=== PATIENT | male | born 1965 | race Caucasian/White ===

== ENCOUNTER 2023-03-09 09:24 | Outpatient (CLI) | payer OTHER, SELFPAY ==
--- NOTE | ~2023-03-09 | XR_ITS ---
EXAMINATION: XR barium swallow modified DATE: 03/09/2023 10:01 INDICATION: Dysphagia. TECHNIQUE: The patient was given barium-containing material of multiple consistencies to swallow by suzi foster speech pathologist while I performed fluoroscopy. Dose-area product was 0.806 Gy-cm2. FINDINGS: Oral Stage: Within functional limits Pharyngeal Phase: Within functional limits Cervical/Esophageal Stage: Within functional limits IMPRESSION: Modified esophagram findings as above. Please refer [facility] the [facility]. Reviewed, dictated and finalized at [facility]. Reviewed, dictated and finalized at [facility]. IMPRESSION: Modified esophagram findings as above. Please refer to the speech t herapy report for specific recommendations.
--- NOTE | 2023-03-09 11:35 | REHSTMBS ---
Assessment and note entered by Linda Fish, [employer] Modified Barium Swallow Evaluation Feeding Type Recommended Oral Food Consistency Regular, Level 7 Liquid Consistency Thin (0) ST Clinical Summary MODIFIED BARIUM SWALLOW STUDY This patient was seen for a Modified Barium Swallow at the request of his physician. Patient reported that he has noticed that when attempting to swallow his own saliva, it is like it becomes caught in his throat and he has to swallow hard, or gulp to get it down. He also noticed that occasionally liquids will do the same and he has had to cough and expectorate the liquid to catch his breath. Patient denied significant issues with swallowing foods however he did report that when chocolate melts and mixes with his saliva, he occasionally becomes choked on that consistency. Patient was presented with graduated amounts of thin liquid, then pudding mixed with semi-solid contrast medium, then crackers and fruit pieces both coated with the pudding mixture. He exhibited quick swallows with no signs of aspiration. Results indicate patient may remain on Regular Diet and Liquids. He was instructed to masticate/ manipulate material with chin slightly tucked to keep all food/liquid/saliva in the mouth prior to swallowing. He is referred back to his physician for further assessment of his complaints.
== END 2023-03-09 09:25 | disposition home or self-care (01) ==
PROVIDERS: PCP Internal Medicine; Visit Provider Internal Medicine
DX: R49.0 Dysphonia (principal)
CPT/HCPCS: 92611

== ENCOUNTER 2024-11-23 15:23 | Emergency (ER) | payer OTHER, SELFPAY ==
[2024-11-23 15:31] VITALS: BP 167/100; PULSE 79; RESP 18; TEMP 37.4; O2SAT 95
--- NOTE | 2024-11-23 16:22 | ED_ITS ---
HPI - URI/Sore Throat General Chief Complaint: Upper Respiratory Infection Stated Complaint: Cough/Headache Time Seen by Provider: 11/23/24 15:24 Source: patient Mode of arrival: ambulatory Limitations: no limitations History of Present Illness HPI Narrative: Patient is a 59-year-old male who presents with 2 weeks of persistent cough. Patient states Tuesday cough worsened and he is now having headaches and cou ghing fits at night. Denies any fever, chills, nausea, vomiting, diarrhea. Has taken byws-yes-sfflwop medication with no relief. Related Data Home Medications ?Medication ?Instructions ?Recorded ?Confirmed ?Last Taken ?Type bupropion HCl 300 mg 24 hr tablet, 300 mg PO QAM 06/21/23 09/19/24 Unknown History extended release buspirone 10 mg tablet 10 mg PO TID 06/21/23 09/19/24 Unknown History escitalopram oxalate 20 mg tablet 20 mg PO DAILY 06/21/23 09/19/24 Unknown History venlafaxine 150 mg tablet,extended 150 mg PO DAILY 06/21/23 09/19/24 Unknown History release 24 hr Allergies Allergy/AdvReac Type Severity Reaction Status Date / Time latex Allergy Mild Rash Verified 11/23/24 15:24 Review of Systems Review of Systems: All systems reviewed & are unremarkable except as noted in HPI and below Constitutional: Constitutional: Denies chills, Denies fatigue, Denies fever(s), Reports headache(s), Denies malaise and Denies weakness Eyes: Eyes: Denies blurry vision, Denies itchy eyes and Denies loss of vision ENT: Denies otalgia, Reports headache(s), Denies nasal congestion, Denies sinus pain and Denies sore throat Cardiovascular: Cardiovascular: Denies chest pain, Denies irregular heart rhythm and Denies dyspnea Respiratory: Respiratory: Reports cough and Denies dyspnea Gastrointestinal: Gastrointestinal: Denies abdominal pain, Denies diarrhea, Denies nausea and Denies vomiting Musculoskeletal: Musculoskeletal: Denies back pain, Denies myalgias and Denies arthralgias Integumentary/Breasts: Skin/Breast: Denies pruritus and Denies rash Neurologic: Reports headache(s), Denies loss of vision and Denies weakness Psychiatric: Psychiatric: Reports no additional psychiatric complaints Endocrine: Endocrine: Denies fatigue Allergic/Immunologic: Allergic/Immunologic: Denies itchy eyes PMFSH Past Medical History Medical History MDD (major depressive disorder), recurrent episode Elevated PSA RAMILA (generalized anxiety disorder) Nephrolithiasis Migraines Family History Family History Father Hypertension Heart disease Other Diabetes mellitus Social History Social History Social History: Smoking status: Never smoker Second hand tobacco smoke exposure: No Alcohol intake: never Substance use: never Substance use type: does not use Do You Feel Safe in your Home?: Yes Lack of Transportation: No Lack of Food: Never True Current Housing: I Have Housing Concerned About Future Housing: No Difficulty Paying Gas/Electric Bills: No Difficulty Paying for Meds: No Currently Unemployed: No Education: Associate Degree Difficulty w/ Childcare or Family Care: No Living arrangements: with family Occupation/Education: occupation 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 There is no relevant family history pertinent to the presenting complaint. Exam Const: General: cooperative, healthy appearing, comfortable, no acute distress and well nourished Nutritional Appearance: well nourished Orientation/consciousness: patient oriented x3 Limitations: no limitations HENMT: Head: normal to inspection, normocephalic and atraumatic Ears: hearing grossly normal bilaterally, external ears normal, TM's normal bilaterally, EAC's normal and no periauricular adenopathy Face/Nose/Sinus: Normal external nose present, Abnormal mucous membranes and turbinates present erythematous bilateral and diffuse, normal facial exam, sinuses nontender and face symmetric Face and sinus: normal facial exam, sinuses nontender and face symmetric Mouth: Yes Normal oral and palatal mucosa present, Yes lip normal, Yes tongue normal, Yes Normal salivary glands and ducts present, Yes oropharynx normal and Yes moist mucous membranes Teeth and gingiva: dentition normal Throat: posterior oropharynx normal, tonsils normal and uvula midline Eyes: General: appearance normal, both eyes and all related structures Alignment and Position: alignment normal and position normal Periorbital: periorbital findings normal Eyelids: eyelids normal Pupils: Equal, round and reactive pupils present Neck: Neck: normal visual inspection, full ROM, no lymphadenopathy and supple Chest: Chest palpation & inspection: normal inspection of the chest and normal palpation of entire chest wall Resp: Effort & Inspection: normal respiratory effort, able to speak in complete sentences and Actively coughing actively coughing Auscultation: clear to auscultation bilaterally, no crackles, no rales, no rhonchi and no wheezes Cardio: Rate: regular rate Rhythm: regular rhythm Heart sounds: S1 normal heart sound present and S2 normal heart sound present GI: Inspection: normal to inspection Skin: General skin exam: normal color and no rashes or lesions noted Neuro: General: patient oriented x3 and moves all extremities Cranial nerves: Yes Equal, round and reactive pupils present Speech: normal speech Gait exam (Neuro): Normal gait present Extrem: General: normal to inspection, full ROM and no edema Psych: Appearance: grossly normal and well kempt Mental Status: mental status grossly normal Speech and movement: Normal speech and movement present Affect: normal affect Attitude: cooperative Thought process: Normal thought process present Course Course Emergency Course: Discharge instructions reviewed with patient, as well as provided in writing per nursing staff. The instructions also include specific and strict return/GO TO THE ER as well as f/u information. All questions have been answered, and the patient deny any further questions with discharge and discharge plan. Portions of this record may have been created with voice recognition software Level of Care: Express Care Visit Vital Signs Vital signs: Vital Signs Temperature 37.4 C 11/23/24 15:31 Pulse Rate 79 11/23/24 15:31 Respiratory Rate 18 11/23/24 15:31 Blood Pressure 167/100 H 11/23/24 15:31 Pulse Oximetry 95 11/23/24 15:31 Oxygen Delivery Room Air 11/23/24 15:31 Temperature 37.4 C 11/23/24 15:31 Pulse Rate 79 11/23/24 15:31 Respiratory Rate 18 11/23/24 15:31 Blood Pressure 167/100 H 11/23/24 15:31 Pulse Oximetry 95 11/23/24 15:31 Oxygen Delivery Room Air 11/23/24 15:31 Reviewed MDM - URI/Sore Throat MDM Narrative Medical decision making narrative: Pt well hydrated appearing, in no respiratory distress, hemodynamically stable. Recommend supportive care. The patient is stable at time of discharge the clinical impression was discussed and the patient was given the opportunity to ask questions, which were addressed as completely as possible given the information available at present. Anticipatory guidance and return to care precautions were discussed and the importance of primary care follow-up was stressed and encouraged. The patient voiced understanding of the plan, indications to return, and the need for follow-up. Differential diagnosis considered: Matias virus, strep pharyngitis, allergic rhinitis, upper respiratory tract infection, sinusitis, rhinosinusitis, nasopharyngitis. viral pharyngitis, otitis media, otitis externa, otitis effusion, foreign body, cerumen impaction, viral syndrome, and influenza.? Exam findings show no acute concerns or changes; patient is non-toxic appearing and is in no distress.? Patient is appropriate for outpatient treatment and follow-up.? Medical Records Attestation: I reviewed the patient's medical records. Discharge Plan Discharge Clinical Impression: Acute purulent bronchitis Patient Disposition: Home, Self-Care Condition: Stable Instructions: Acute Bronchitis (ED) Additional Instructions: Take antibiotic as prescribed. Take steroids in the morning with food. Use Tessalon Perles as needed for cough. Other symptomatic treatments include: -Alternate Tylenol and Motrin per package directions for fever or pain: Tylenol 650-1000mg by mouth every 4-6 hours. Do not exceed 4000mg in 24 hours. Advil (Ibuprofen) 600 mg by mouth every 6 hours. Do not exceed 2400mg in 24 hours. 8 AM: Tylenol 11 AM: Ibuprofen 2 PM: Tylenol 5 PM: Ibuprofen 8 PM: Tylenol 11 PM: Ibuprofen 2 AM: Tylenol 5 AM: Ibuprofen -Antihistamine medication such as Benadryl at night and Zyrtec/Claritin/Marylu during the day can help improve symptoms. -Use Flonase twice a day for 5 days then daily to help reduce the inflammation and dry up your sinuses. -You can also use Sudafed or Mucinex. Be sure to drink plenty of water with these medications at least 8 ounces with every dose and it is important to drink 8 to 10 glasses of water per day. Water is a natural decongestant -Eat and drink things that are easy to swallow, like tea or soup, or popsicles. -Oral rinses such as: Salt water gargles and/or may use topical anesthetic (eg. Chloraseptic spray) or lozenges to relieve dryness or throat pain). -Frequent hand washing or hand auto body repairman is one of the best ways to prevent spread of infection. -Using a vaporizer or humidifier at night will also help thin secretions and help with coughing up phlegm. -Follow up with primary care provider in 3-5 days if condition is not improving - For new or worsening symptoms go directly to the nearest ER Your blood pressure was elevated above 120/80 today at Urgent Care. This puts you above the threshold for follow up visit with a primary care provider. High blood pressure does not usually cause any symptoms, however it may lead to kidney failure, stroke, heart disease just to name a few if untreated . Many people are anxious when seeing a provider or nurse. As a result, you are not diagnosed with hypertension at this time unless your blood pressure is persistently high at two office visits at least one week apart. Some things that can help lower blood pressure are lifestyle modifications, such as light exercise, decreased salt in diet, and weight loss. It is important to follow up with a PCP about this within 1 week. Patient Language: Paraguayan Prescriptions: New prednisone 20 mg tablet 40 mg PO DAILY 5 Days Qty: 10 0RF amoxicillin 875 mg tablet 875 mg PO Q12H 7 Days Qty: 14 0RF benzonatate 100 mg capsule 100 mg PO BID PRN (Reason: cough) Qty: 14 0RF No Action escitalopram oxalate 20 mg tablet 20 mg PO DAILY venlafaxine 150 mg tablet extended release 24hr 150 mg PO DAILY bupropion HCl 300 mg tablet extended release 24 hr 300 mg PO QAM buspirone 10 mg tablet 10 mg PO TID Qulipta 60 mg tablet 30 mg PO ONCE PRN (Reason: migraines) Qty: 30 4RF tamsulosin 0.4 mg capsule 0.4 mg PO QHS Qty: 90 3RF propranolol 80 mg tablet See Rx Instructions .ROUTE .COMPLEX Qty: 180 1RF Dose Instruction: TAKE 1 TABLET BY MOUTH EVERY 12 HOURS Rx Instructions: TAKE 1 TABLET BY MOUTH EVERY 12 HOURS Follow-up/Referrals: Alberto Sy MD [Primary Care Provider] - 3 Days Time of Disposition: 16:25
== END 2024-11-23 16:30 | disposition home or self-care (01) ==
PROVIDERS: Emergency Provider Nurse Practitioner Family; PCP Family Medicine
DX: J20.9 Acute bronchitis, unspecified (principal)
CPT/HCPCS: 99213; G0463

== ENCOUNTER 2025-02-09 11:26 | Outpatient (CLI) | payer OTHER, SELFPAY ==
[2025-02-09 12:22] LABS: Influenza A QL RT-PCR Negative (Negative); Influenza B QL RT-PCR Negative (Negative); SARS-CoV-2 RNA PCR Negative (Negative)
--- OUTSIDE RECORDS SUMMARY | 2025-02-09 16:30 | XMS_ITS | Data Portability ---
Author Organization [place] [facility], Main Office Address [address] [place] [address] Care Team Providers Care Rad Tech Name Role Phone UNRULY ORTIZ Primary Care Provider [phone] UNRULY ORTIZ Referring Provider Assessment Encounter Date Assessment Date Assessment LastModified by Organization Details LastModified Time 02/23/2023 02/23/2023 ENT evaluate cords. Modified barium swallow. Check PSA. Other blood work reviewed. If this workup negative consider upper endoscopy and chest x-ray. He will call after seeing specialist otherwise 6 months [email or web address] Not available 02/23/2023 22:12:03 Plan of Treatment Reminders Order Date Submit Date Provider Last Modified By Organization Details Last Modified Time Details Appointments None recorded. Lab PSA, total, serum or plasma 2022 023 [facility] (Lab), [address] [place], [address], 3 13:37:55 Referral ENT surgery referral 2022 023 wicho Severino MD, [address], [place], [address], 3 10:50:43 Procedures None recorded. Surgeries None recorded. Imaging [place], modified barium swallow study 2022 023 [facility] (Imaging), [address] [facility] [address], [place], [address], 3 12:50:31 Medication Orders None recorded. Patient TargetsNo targets recorded. Patient Instructions Encounter Date Encounter Id Patient Instructions Last Modified By Organization Details Last Modified Time 03/02/2023 [id number] the patient is not interested in either speech therapy or laryngoscopy. We will see the results of his barium swallow. [email or web address] Not available 03/02/2023 11:35:04 Reason for Referral ENT Surgery Referral for Beba rse Referring Physician: Unruly Ortiz, Internal Medicine, Encounter Date: 02/23/2023 Results Created Date Observation Date Name Description Value Unit Range Abnormal Flag Note LastModifiedBy Organization Detail LastModifiedTime 11/02/19 22 11/02/2021 urina lysis , dipst ick Leukocytes (reference range: negative marcelino/ l) Negati ve Not Available [address], [address], 11/02/2021 11:11:39 11/02/19 22 11/02/2021 urina lysis , dipst ick Nitrite (reference rage: negative mg/dl) negati ve Not Available [address], [address], 11/02/2021 11:11:39 11/02/19 22 11/02/2021 urina lysis , dipst ick Urobilinogen (reference range: 0.2-1 mg/dl) 0.2 Not Available [address], [address], 11/02/2021 11:11:39 11/02/19 22 11/02/2021 urina lysis , dipst ick Protein (reference range: negative mg/dl) Negati ve Not Available [address], [address], 11/02/2021 11:11:39 11/02/19 22 11/02/2021 urina lysis , dipst ick pH (reference range: 5-7) 5.5 Not Available [address], [address], 11/02/2021 11:11:39 11/02/19 22 11/02/2021 urina lysis , dipst ick Blood (reference range: negative Charles/ l) Negati ve Not Available [address], [address], 11/02/2021 11:11:39 11/02/19 22 11/02/2021 urina lysis , dipst ick Specific [place] (reference range: 1.005-1.030) 1.020 Not Available [address], [address], 11/02/2021 11:11:39 11/02/19 22 11/02/2021 urina lysis , dipst ick Ketone (reference range: negative mg/dl) Negati ve Not Available [address], [address], 11/02/2021 11:11:39 11/02/19 22 11/02/2021 urina lysis , dipst ick Bilirubin (reference range: negative mg/dl) Negati ve Not Available [address], [address], 11/02/2021 11:11:39 11/02/19 22 11/02/2021 urina lysis , dipst ick Glucose (reference range: negative mg/dl) Negati ve Not Available [address], [address], 11/02/2021 11:11:39 11/02/19 22 11/02/2021 urina lysis , dipst ick Appearance Clear Not Available _[facility] _g [facility] [address] [place] [address], [address], [place], [address], 11/02/2021 11:11:39 11/02/19 22 11/02/2021 urina lysis , dipst ick Color Yellow Not Available _[facility]_ g [facility] [address] [place] [address], [address], [place], [address], 11/02/2021 11:11:39 04/07/20 22 04/07/2022 COMPR EHENS ALLY METAB OLIC PANEL carbon dioxide 30 mmol/ L 22-30 Not Available [facility] (Lab) [address] [place], [address], 04/07/2022 15:58:35 04/07/20 22 04/07/2022 COMPR EHENS ALLY METAB OLIC PANEL sodium 140 mmol/ L 137-14 5 Not Available [facility] (Lab) [address] [place], [address], 04/07/2022 15:58:35 04/07/20 22 04/07/2022 COMPR EHENS ALLY METAB OLIC PANEL potassium 4.2 mmol/ L 3.5-5. 1 Not Available [facility] (Lab) [address] [place], [address], 04/07/2022 15:58:35 04/07/20 22 04/07/2022 COMPR EHENS ALLY METAB OLIC PANEL chloride 103 mmol/ L 98-107 Not Available [facility] (Lab) [address] [place], [address], 04/07/2022 15:58:35 04/07/20 22 04/07/2022 COMPR EHENS ALLY METAB OLIC PANEL anion gap 11.2 mmol/ L 14-22 low Not Available [facility] (Lab) [address] [place], [address], 04/07/2022 15:58:35 04/07/20 22 04/07/2022 COMPR EHENS ALLY METAB OLIC PANEL glucose 84 mg/dL 70-99 Not Available [facility] (Lab) [address] [place], [address], 04/07/2022 15:58:35 04/07/20 22 04/07/2022 COMPR EHENS ALLY METAB OLIC PANEL BUN 11 mg/dL 8-19 Not Available [facility] (Lab) [address] [place], [address], 04/07/2022 15:58:35 04/07/20 22 04/07/2022 COMPR EHENS ALLY METAB OLIC PANEL creatinine 1.11 mg/dL 0.66-1 .25 Not Available [facility] (Lab) [address] [place], [address], 04/07/2022 15:58:35 04/07/20 22 04/07/2022 COMPR EHENS ALLY METAB OLIC PANEL GFR >60 Refer ence Range : [place] [facility] GFR Healt hy Adult : >60 mL/mi n/1.7 3 m2 Chron ic Kidne y Disea se: 15-60 mL/mi n/1.7 3 m2 Kidne y Failu re: <15/m L/min /1.73 m2 www.n iddk. nih.g ov The MDRD study equat ion has not been valid ated in child daniela <18 years of age; pregn ant women ; the elder ly >85 years of age; or in some racia l or ethni c subgr oups, such as Hispa nics. Outsi de the valid ated rajeev eters , estim ated GFR is less accur ate, requi ring clini kamini judgm ent on a case- by-ca se basis . Clini kamini inter preta tion for other races and ages must be made by the clini ld. The MDRD study equat ion has not been valid ated for the evalu ation of serum creat inine relat ed to nutri jose l statu s or medic ation usage . For perso ns <18 years of age, a pedia tric GFR calcu lator is avail able on the [facility] websi te: https ://jean w.yasmin jen.o rg/pr ofess ional s/kdo qi/gf r_cal culat or Not Available [facility] (Lab) [address] [place], [address], 04/07/2022 15:58:35 04/07/20 22 04/07/2022 COMPR EHENS ALLY METAB OLIC PANEL alkaline phosphatase 60 U/L 38-126 Not Available [facility] (Lab) [address] [place], [address], 04/07/2022 15:58:35 04/07/20 22 04/07/2022 COMPR EHENS ALLY METAB OLIC PANEL alanine aminotransfe rase 22 U/L 0-50 Not Available [facility] (Lab) [address] [place], [address], 04/07/2022 15:58:35 04/07/20 22 04/07/2022 COMPR EHENS ALLY METAB OLIC PANEL aspartate aminotransfe rase 24 U/L 15-46 Not Available [facility] (Lab) [address] [place], [address], 04/07/2022 15:58:35 04/07/20 22 04/07/2022 COMPR EHENS ALLY METAB OLIC PANEL bilirubin, total 0.40 mg/dL 0.20-1 .30 Not Available [facility] (Lab) [address] [place], [address], 04/07/2022 15:58:35 04/07/20 22 04/07/2022 COMPR EHENS ALLY METAB OLIC PANEL calcium 9.7 mg/dL 8.4-10 .2 Not Available [facility] (Lab) [address] [place], [address], 04/07/2022 15:58:35 04/07/20 22 04/07/2022 COMPR EHENS ALLY METAB OLIC PANEL total protein 6.8 g/dL 6.3-8. 2 Not Available [facility] (Lab) [address] [place], [address], 04/07/2022 15:58:35 04/07/20 22 04/07/2022 COMPR EHENS ALLY METAB OLIC PANEL albumin 4.2 g/dL 3.4-5. 0 Not Available [facility] (Lab) [address] [place], [address], 04/07/2022 15:58:35 04/07/20 22 04/07/2022 COMPR EHENS ALLY METAB OLIC PANEL globulin 2.6 g/dL 2.6-4. 2 Not Available [facility] (Lab) [address] [place], [address], 04/07/2022 15:58:35 04/07/20 22 04/07/2022 COMPR EHENS ALLY METAB OLIC PANEL A/G ratio 1.6 ratio 1.0-2. 0 Not Available [facility] (Lab) [address] [place], [address], 04/07/2022 15:58:35 04/07/20 22 04/07/2022 LIPID PANEL LDL cholesterol, calculated 111 mg/dL 0-130 [facility] NSUS REPOR T RECOM MENDA TIONS FOR LDL: ADULT CHILD LOW RISK <130 <110 (OPTI MAL LDL) <100 ----- BORDE RLINE : 130-1 59 ----- HIGH RISK: >160 >130 A TRIGL YCERI DE RESUL T >400 INVAL IDATE S THE CALCU LATIO N FOR LDL FRACT IONAT ION - THE LDL RESUL T WILL NOT BE REPOR JOSIE. Not Available [facility] (Lab) [address] [place], [address], 04/07/2022 15:58:28 04/07/20 22 04/07/2022 LIPID PANEL cholesterol 178 mg/dL 140-19 9 [facility] BRITT[facility] NSUS RECOM MENDA TION FOR MARIANNA STERO L: ADULT CHILD LOW RISK: <200 <170 BORDE RLINE : <200- 239 ----- HIGH RISK: >240 >200 Not Available [facility] (Lab) [address] [place], [address], 04/07/2022 15:58:28 04/07/20 22 04/07/2022 LIPID PANEL triglyceride s 89 mg/dL 0-150 [facility] BR[facility]NEY NSUS REPOR T RECOM MENDA TION FOR TRIGL YCERI ESMER: ADULT CHILD LOW RISK: <150 ----- BODER LINE: 150-1 99 ----- HIGH RISK: >200 ----- Not Available [facility] (Lab) [address] [place], [address], 04/07/2022 15:58:28 04/07/20 22 04/07/2022 LIPID PANEL HDL cholesterol 49 mg/dL 40- Not Available [facility] (Lab) [address] [place], [address], 04/07/2022 15:58:28 04/07/20 22 04/07/2022 CBC/C OMPLE TE BLD COUNT W/DIF F platelets 320 x10'3 /uL 150-40 0 Not Available [facility] (Lab) [address] [place], [address], 04/07/2022 14:35:42 04/07/20 22 04/07/2022 CBC/C OMPLE TE BLD COUNT W/DIF F white blood cells 6.0 x10'3 /uL 4.2-10 .8 Not Available [facility] (Lab) [address] [place], [address], 04/07/2022 14:35:42 04/07/20 22 04/07/2022 CBC/C OMPLE TE BLD COUNT W/DIF F red blood cells 4.90 x10'6 /uL 4.10-5 .80 Not Available [facility] (Lab) [address] [place], [address], 04/07/2022 14:35:42 04/07/20 22 04/07/2022 CBC/C OMPLE TE BLD COUNT W/DIF F hemoglobin 14.6 g/dL 13.2-1 7.0 Not Available [facility] (Lab) [address] [place], [address], 04/07/2022 14:35:42 04/07/20 22 04/07/2022 CBC/C OMPLE TE BLD COUNT W/DIF F hematocrit 43.9 % 39.3-5 0.0 Not Available [facility] (Lab) [address] [place], [address], 04/07/2022 14:35:42 04/07/20 22 04/07/2022 CBC/C OMPLE TE BLD COUNT W/DIF F mean red cell volume 89.6 fL 80.0-9 7.0 Not Available [facility] (Lab) [address] [place], [address], 04/07/2022 14:35:42 04/07/20 22 04/07/2022 CBC/C OMPLE TE BLD COUNT W/DIF F mean red cell hemoglobin 29.8 pg 27.0-3 3.0 Not Available [facility] (Lab) [address] [place], [address], 04/07/2022 14:35:42 04/07/20 22 04/07/2022 CBC/C OMPLE TE BLD COUNT W/DIF F mean RBC HGB concentratio n 33.3 g/dL 31.0-3 6.0 Not Available [facility] (Lab) [address] [facility] [place], [address], 04/07/2022 14:35:42 04/07/20 22 04/07/2022 CBC/C OMPLE TE BLD COUNT W/DIF F red cell distribution width 13.3 % 11.8-1 5.5 Not Available [facility] (Lab) [address] [place], [address], 04/07/2022 14:35:42 04/07/20 22 04/07/2022 CBC/C OMPLE TE BLD COUNT W/DIF F mean platelet volume 8.5 fL 9.0-12 .4 low Not Available [facility] (Lab) [address] [place], [address], 04/07/2022 14:35:42 04/07/20 22 04/07/2022 CBC/C OMPLE TE BLD COUNT W/DIF F neutrophils 57.2 % 39.0-7 2.0 Not Available [facility] (Lab) [address] [place], [address], 04/07/2022 14:35:42 04/07/20 22 04/07/2022 CBC/C OMPLE TE BLD COUNT W/DIF F lymphocytes 27.8 % 16.0-4 7.0 Not Available [facility] (Lab) [address] [place], [address], 04/07/2022 14:35:42 04/07/20 22 04/07/2022 CBC/C OMPLE TE BLD COUNT W/DIF F monocytes 12.1 % 5.0-12 .0 high Not Available [facility] (Lab) [address] [place], [address], 04/07/2022 14:35:42 04/07/20 22 04/07/2022 CBC/C OMPLE TE BLD COUNT W/DIF F eosinophils 1.8 % 1.0-7. 0 Not Available [facility] (Lab) [address] [place], [address], 04/07/2022 14:35:42 04/07/20 22 04/07/2022 CBC/C OMPLE TE BLD COUNT W/DIF F basophils 0.8 % 0.0-2. 0 Not Available [facility] (Lab) [address] [place], [address], 04/07/2022 14:35:42 04/07/20 22 04/07/2022 CBC/C OMPLE TE BLD COUNT W/DIF F immature granulocytes 0.3 % 0.00-0 .50 Not Available [facility] (Lab) [address] [place], [address], 04/07/2022 14:35:42 04/07/20 22 04/07/2022 CBC/C OMPLE TE BLD COUNT W/DIF F neutrophils, absolute count 3.43 x10'3 /uL 1.5-8. 0 Not Available [facility] (Lab) [address] [place], [address], 04/07/2022 14:35:42 04/07/20 22 04/07/2022 CBC/C OMPLE TE BLD COUNT W/DIF F lymphocytes, absolute count 1.67 x10'3 /uL 1.07-3 .43 Not Available [facility] (Lab) [address] [place], [address], 04/07/2022 14:35:42 04/07/20 22 04/07/2022 CBC/C OMPLE TE BLD COUNT W/DIF F monocytes, absolute count 0.73 x10'3 /uL 0.29-0 .99 Not Available [facility] (Lab) [address] [place], [address], 04/07/2022 14:35:42 04/07/20 22 04/07/2022 CBC/C OMPLE TE BLD COUNT W/DIF F eosinophils, absolute count 0.11 x10'3 /uL 0.02-0 .53 Not Available [facility] (Lab) [address] [place], [address], 04/07/2022 14:35:42 04/07/20 22 04/07/2022 CBC/C OMPLE TE BLD COUNT W/DIF F basophils, absolute count 0.05 x10'3 /uL 0.01-0 .08 Not Available [facility] (Lab) [address] [place], [address], 04/07/2022 14:35:42 04/07/20 22 04/07/2022 CBC/C OMPLE TE BLD COUNT W/DIF F immature granulocytes ,absolute 0.02 x10'3 /uL 0.00-0 .05 Not Available [facility] (Lab) [address] [place], [address], 04/07/2022 14:35:42 04/07/20 22 04/07/2022 CBC/C OMPLE TE BLD COUNT W/DIF F nucleated red blood cells 0.0 % -0 Not Available [facility] (Lab) [address] [place], [address], 04/07/2022 14:35:42 04/07/20 22 04/07/2022 CBC/C OMPLE TE BLD COUNT W/DIF F NRBC# 0.00 x10'3 /uL Not Available [facility] (Lab) [address] [place], [address], 04/07/2022 14:35:42 06/24/20 22 06/15/2022 home sleep testi ng (PROC ) No observ ation record ed. [id number] [facility] [address], [place], [address], 12/08/2022 06:18:12 03/09/20 23 03/09/2023 [place], modif ied guido barros ow study No observ ation record ed. [address], [place], [address], 08/20/2023 18:19:01 03/09/20 23 03/09/2023 [place], modif ied guido mendosa study No observ ation record ed. [address], [place], [address], 08/20/2023 18:19:01 Result Notes None recorded. Problems Name Problem SNOMED Code Status Onset Date Resolution Date Notes Provider Name and Address Organization Details Recorded Time Paronychia of toe of right foot 0841597424935 9102 Active 2019 Not Available [facility] 3 06:07:20 Migraine 17488821 Active 2019 Not Available [facility] 3 06:07:20 Perennial allergic rhinitis 243195897 Active 2020 Not Available [facility] 3 06:07:20 Sleep apnea 00515197 Active 2021 Not Available [facility] 3 06:07:20 Obstructiv e sleep apnea syndrome 60345703 Active 2021 Not Available [facility] 3 06:07:20 Skin lesion 48992128 Active 2021 Not Available [facility] 3 06:07:21 Kidney stone 38827864 Active 2021 Not Available [facility] 3 06:07:21 Hoarse 65318775 Active 2022 DONNA Sebastian null, [facility] 3 11:12:39 Dysphagia 12827401 Active 2022 Unruly Ortiz MD [address], [place], [address] , [facility] 3 22:12:31 Singers' nodes 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 Procedures Surgical History Date Name Laterality Status Provider Name and Address Organization Details Recorded Time [place] Teeth completed Not Available [facility] 12/08/2022 05:58:17 Lithotripsy completed Not Available [facility] 12/08/2022 05:58:17 Imaging Results Imaging Date Name Status LastModified by Organiz ation Details LastModified Time 06/15/2022 home sleep testing (PROC) completed [id number] [facility] [address], [place], [address], 12/08/2022 06:18:12 03/09/2023 [place], modified barium swallow study completed [address], [place], [address], 08/20/2023 18:19:01 03/09/2023 [place], modified barium swallow study completed [address] [address], [place], [address], 08/20/2023 18:19:01 Procedure Notes None recorded. Medical Equipment None Reported. Allergies Allergen ID Allergen Name Allergen Category Reaction Reaction Severity Criticality Documentation Date Start Date Code Code System Note Provider Name and Address Organization Details Recorded Time 52007 latex environme nt,medica tion rash Not available Not available 12/08/2022 01754 91 RxNorm Not Available [facility] 3 06:17:39 Medications Name Sig Start Date Stop Date Status Note LastModified by Organization Details LastModified Time buspirone 5 mg tablet 04/14 completed Not Available Not Available Not Available venlafaxine ER 75 mg capsule,ext ended release 24 hr TAKE 1 CAPSULE BY MOUTH EVERY DAY IN THE MORNING 04/27 completed Not Available Not Available Not Available hydrocodone 5 mg-acetamin ophen 325 mg tablet TAKE 1 TABLET BY MOUTH EVERY 6 HOURS NEEDED FOR PAIN 09/23 completed Not Available Not Available Not Available ondansetron HCl 4 mg tablet TAKE 1 TABLET BY MOUTH EVERY 8 HOURS 09/23 completed Not Available Not Available Not Available venlafaxine ER 150 mg capsule,ext ended release 24 hr TAKE 1 CAPSULE BY MOUTH EVERY DAY IN THE MORNING active Not Available Not Available No t Available topiramate 25 mg tablet 04/14 completed Not Available Not Available Not Available butalbital- acetaminoph en-caffeine 50 mg-325 mg-40 mg tablet 10/20 completed Not Available Not Available Not Available propranolol 40 mg tablet TK 1 T PO QHS active Not Available Not Available No t Available tamsulosin 0.4 mg capsule TAKE 1 CAPSULE BY MOUTH EVERY DAY 04/07 completed Not Available Not Available Not Available buspirone 10 mg tablet TAKE 1 TABLET BY MOUTH THREE TIMES DAILY WITH MEALS active Not Available Not Available No t Available montelukast 10 mg tablet TAKE 1 TABLET BY MOUTH EVERY MORNING active Not Available Not Available No t Available ondansetron 4 mg disintegrat ing tablet DISSOLVE 1 TABLET ON TONGUE EVERY 8 HOURS 09/23 completed Not Available Not Available Not Available oxycodone 5 mg tablet TAKE 1 TABLET BY MOUTH EVERY 6 HOURS NEEDED FOR BREAKTHRO UGH PAIN 09/23 completed Not Available Not Available Not Available escitalopra m 10 mg tablet TAKE 1 TABLET BY MOUTH EVERY DAY IN THE MORNING 04/07 completed Not Available Not Available Not Available escitalopra m 20 mg tablet TAKE 1 TABLET BY MOUTH EVERY DAY IN THE MORNING active Not Available Not Available No t Available aripiprazol e 5 mg tablet TAKE 0.5 TABLET BY MOUTH EVERY DAY AT BEDTIME 04/07 completed Not Available Not Available Not Available bupropion HCl XL 300 mg 24 hr tablet, extended release TAKE 1 TABLET BY MOUTH EVERY DAY IN THE MORNING active Not Available Not Available No t Available bupropion HCl XL 150 mg 24 hr tablet, extended release Take 1 tablet every day by oral route. 04/14 completed Not Available Not Available Not Available nitrofurant oin monohydrate /macrocryst als 100 mg capsule TAKE 1 CAPSULE BY MOUTH EVERY 12 HOURS UNTIL ALL TAKEN 09/09 completed Not Available Not Available Not Available Fioricet prn 04/27 completed Not Available Not Available Not Available aripiprazol e 2 mg tablet TK 1 T PO QD HS active Not Available Not Available No t Available Vitals Date Recorded Body mass index (BMI) Body height Body temperature Body weight Provider Name and Address Organization Details Last Updated DateTime 11/02/2021 28.1 kg/m2 182.88 cm 99.9 [degF] 56126.62 g Not Available [facility] 12/08/2022 06:02:45 Date Recorded Body mass index (BMI) Body height Heart rate Body temperature Body weight Systolic blood pressure Diastolic blood pressure Provider Name and Address Organization Details Last Updated DateTime 2 27.1 kg/m2 182.88 cm 70 /min 95.8 [degF] 67895.4 7 g 132 mm[Hg] 80 mm[Hg] Not Available [facility] 3 06:02:42 Date Recorded Body mass index (BMI) Body height Heart rate Body temperature Body weight Systolic blood pressure Diastolic blood pressure Provider Name and Address Organization Details Last Updated DateTime 2 29.3 kg/m2 182.88 cm 96 /min 98.6 [degF] 44835.9 5 g 124 mm[Hg] 80 mm[Hg] Not Available [facility] 3 06:02:42 Date Recorded Body height Body mass index (BMI) Body weight Body temperature Heart rate Oxygen saturation Oxygen saturation in Arterial blood by Pulse oximetry Systolic blood pressure Diastolic blood pressure Provider Name and Address Organization Details Last Updated DateTime 3 182.88 cm 29.7 kg/m2 14399.7 3 g 97.1 [degF] 87 /min 97 % 97 % 132 mm[Hg] 82 mm[Hg] Adwoa Smith RN [facility] 3 10:39:23 Date Recorded Body height Body mass index (BMI) Body weight Body temperature Provider Name and Address Organization Details Last Updated DateTime 03/02/2023 182.88 cm 29.6 kg/m2 47369.14 g 97.7 [degF] Ashley Key CMA [place] [facility] 03/02/2023 11:22:46 Social History Question Answer Notes LastModified by Organization Details LastModified Time Tobacco Smoking Status Never Smoker Yolande lin IN [place] [facility] 03/02/2023 11:06:59 Do You Have An Advance Directive? No [email or web address] [id number] Information not available 12/08/2022 What Is Your Level Of Alcohol Consumption? None [id number] Information not available 12/08/2022 What Is Your Level Of Caffeine Consumption? Moderate [id number] Information not available 12/08/2022 How Much Tobacco Do You Chew? None [id number] Information not available 12/08/2022 In The 14 Days Before Symptom Onset, Have You Had Close Contact With A Laboratory-confi rmed COVID-19 While That Case Was Ill? No [email or web address] Information not available 03/02/2023 In The 14 Days Before Symptom Onset, Have You Had Close Contact With A Person Who Is Under Investigation For COVID-19 While That Person Was Ill? No [email or web address] Information not available 03/02/2023 Are You Currently Employed? Yes [email or web address] Information not available 03/02/2023 What Type Of Diet Are You Following? GLUTENFREE [id number] Information not available 12/08/2022 Which Illicit Or Recreational Drugs Have You Used? None [email or web address] Information not available 03/02/2023 Do You Or Have You Ever Used E-cigarettes Or Vape? Never Used Electronic Cigarettes [email or web address] Information not available 03/02/2023 What Is The Highest Grade Or Level Of School You Have Completed Or The Highest Degree You Have Received? TN33232-4 [email or web address] Information not available 03/02/2023 What Is Your Occupation? [employer] Information not available 03/02/2023 Have There Been Any Changes To Your Family Or Social Situation? No [email or web address] Information not available 03/02/2023 What Is The Fluoride Status Of Your Home? Unknown [email or web address] Information not available 03/02/2023 Are There Any Guns Present In Your Home? No Information not available 03/02/2023 Do You Use Insect Repellent Routinely? No [email or web address] Information not available 03/02/2023 Where Do You Live? SingleLevelHouse [email or web address] Information not available 03/02/2023 Do You Have A Medical Power Of Machine Shop Repair Technician? No [email or web address] Information not available 03/02/2023 What Was The Date Of Your Most Recent Tobacco Screening? 02/23/2023 [email or web address] Information not available 03/02/2023 Do You Have Any Pets? Yes [email or web address] Information not available 03/02/2023 What Is Your Relationship Status? [id number] Information not available 12/08/2022 Do You Use Your Seat Belt Or Car Seat Routinely? Yes Information not available 03/02/2023 Do You Have Smoke And Carbon Monoxide Detectors In Your Home? Yes [email or web address] Information not available 03/02/2023 Are You Passively Exposed To Smoke? No [email or web address] Information not available 03/02/2023 Do You Or Have You Ever Used Smokeless Tobacco? Never Used Smokeless Tobacco [id number] Information not available 12/08/2022 Are There Any Smokers In Your House? No [email or web address] Information not available 03/02/2023 How Much Tobacco Do You Smoke? No [id number] Information not available 12/08/2022 What Types Of Sporting Activities Do You Participate In? None [email or web address] Information not available 03/02/2023 Do You Feel Stressed (tense, Restless, Nervous, Or Anxious, Or Unable To Sleep At Night)? [id number] [email or web address] Information not available 03/02/2023 Do You Use Any Illicit Or Recreational Drugs? No [email or web address] Information not available 03/02/2023 Do You Use Sunscreen Routinely? No [email or web address] Information not available 03/02/2023 Has Tobacco Cessation Counseling Been Provided? No Not Needed-n ever Smoked [email or web address] Information not available 03/02/2023 How Many Years Have You Smoked Tobacco? 0 Information not available 03/02/2023 Have You Recently Traveled Abroad? No [email or web address] Information not available 03/02/2023 Do You Have Any Dietary Restrictions? No [email or web address] Information not available 03/02/2023 Do You Or Have You Ever Used Any Other Forms Of Tobacco Or Nicotine? No [email or web address] Information not available 03/02/2023 Sex: Male Functional Status Question Answer Note LastModified by Organizat ion Details LastModified Time What is your exercise level? Occasional [id number] Information not available 12/08/2022 Mental Status None recorded. Family History Relationship Description Onset Age of this Age Resolved Age Notes LastModified by Organization Details LastModified Time Father Glaucoma [email or web address] Not available 03/02/2023 11:06:56 Father Heart disease [id number] Not available 12/08/2022 05:58:21 Father Hypertensive disorder [id number] Not available 12/08/2022 05:58:21 Brother Diabetes mellitus [id number] Not available 12/08/2022 05:58:21 Brother Hypertensive disorder [id number] Not available 12/08/2022 05:58:21 Daughter Malignant lymphoma 17 [email or web address] Not available 2022 11:06:56 Daughter Malignant tumor of thyroid gland [email or web address] Not available 2022 11:06:56 Medical History Condition Response NERVE DISEASE N BLINDNESS N RHEUMATIC FEVER N KIDNEY STONES Y BLADDER PROBLEMS N MRSA N OTHER # 1 N POLIO N LUNG DISEASE/DISORDER N HISTORY OF DRUG ABUSE N RADIATION / CHEMOTHERAPY N COPD N Other # 2 N BLOOD DISEASES N EAR OR HEARING PROBLEMS N MUMPS N SHINGLES N BOWEL PROBLEMS N DEPRESSION (INCLUDING POST ) Y STROKE/TIA N ULCERS N BENIGN PROSTATIC HYPERPLASIA N MEASLES N HYPOTENSION N MYOCARDIAL INFARCTION N OBESITY N GERD/NAUSEA N ANEURYSM N URINARY/BLADDER/KIDNEY PROBLEMS N Increased Urination N CORONARY ARTERY DISEASE (CAD) N ADDICTION CONCERNS N Impotence N ENDOMETRIOSIS N USE OF BLOOD THINNERS N SKIN PROBLEMS N GASTROINTESTINAL DISORDER N PERIPHERAL VASCULAR DISEASE N MUSCLE,JOINT OR BONE PROBLEMS N GASTROINTESTINAL BLEEDING N BLOOD CLOTS N ASTHMA N CATARACTS N ERECTILE DYSFUNCTION N VARICOSITIES N GI PROBLEMS N Low Testosterone N INFERTILITY N AIDS/HIV N CHEMOTHERAPY / RADIATION N LIVER DISEASE N MALE HYPOGONADISM N HYPERTENSION N Deficiency N TOURETTE'S N ANXIETY DISORDER N BLOOD TRANSFUSION N ANEMIA/BLOOD DISORDER N CHRONIC EAR INFECTIONS N BRONCHITIS Y TUBERCULOSIS N GLAUCOMA N FOOT PROBLEM N DIVERTICULITIS N SLEEP APNEA N CHICKENPOX N INFECTIOUS DISEASE N PROSTATE N HEART ARRHYTHMIA N INSOMNIA N HIGH CHOLESTEROL / HYPERLIPIDEMIA N EYE PROBLEMS N HYPERTHYROIDISM N EDEMA N CHRONIC PAIN SYNDROME N HYPOTHYROIDISM N CONSTIPATION N CAROTID BLOCKAGE N BACK / NECK PROBLEMS N HAVE YOU BEEN HOSPITALIZED OR SEEN IN [facility] IN THE PAST YEAR ? N ATHEROSCLEROSIS N BREAST PROBLEMS N DIALYSIS N ECZEMA N OSTEOPOROSIS N ARTHRITIS N APPENDICITIS N DIABETES, TYPE N BAD TEETH N ENT N HEARTBURN / REFLUX N AUTISM SPECTRUM DISORDER (ASD) N HEPATITIS / LIVER DISEASE N GOUT N SLEEP DISORDER N ALZHEIMER'S DISEASE N Brain Problems N DEMENTIA N HERPES N SEIZURES/EPILEPSY N HEADACHES/MIGRAINES Y VASCULAR DISEASE N PACEMAKER N Blood Disorder N DIZZINESS N HEART DISEASE/HEART PROBLEMS N KIDNEY DISEASE N MULTIPLE SCLEROSIS N CANCER: SPECIFY N CARDIAC ARRHYTHMIA N ATRIAL FIBRILLATION N Gall Stones N PULMONARY EMBOLISM N AUTOIMMUNE DISEASE N Past Encounters Encounter ID Performer Location Encounter Start Date Encounter Closed Date Diagnosis/Indication Diagnosis SNOMED-CT Code Diagnosis ICD10 Code Diagnosis Note [id number] Unruly Ortiz MD [facility] Internal Med [facility] [address] [place] [id number] 1 04/27/2021 00:00:00 04/27/2021 21:05:47 [id number] Andrzej Brantley MD [facility] [address] [address] 1 05/11/2021 00:00:00 05/11/2021 23:08:14 [id number] MD [facility] [address] [address] 1 09/09/2021 00:00:00 09/09/2021 14:36:39 [id number] Darrell Dunne MD [facility] [address] [address] 1 09/23/2021 00:00:00 09/23/2021 11:13:23 [id number] Unruly Ortiz MD [facility] Internal Med [facility] [address] [place] [id number] 1 10/19/2021 00:00:00 10/19/2021 22:20:15 [id number] Andrzej Brantley MD [facility] [address] [address] 1 11/02/2021 00:00:00 11/02/2021 21:00:05 [id number] Unruly Ortiz MD [facility] Internal Med [facility] [address] [place] [id number] 1 04/07/2022 00:00:00 04/24/2022 12:38:20 [id number] Unruly Ortiz MD [facility] Internal Med [facility] [address] [place] [id number] 1 08/25/2022 00:00:00 08/29/2022 17:03:16 [id number] Unruly Ortiz MD [facility] Internal Med [facility] [address], [address] [place] [address] 02/23/2023 10:27:24 02/23/2023 11:11:42 Screening for malignant neoplasm of prostate 431958306 Z12.5 Hoarse [id number] R49.0 Dysphagia 11549443 R13.1 0 [id number] Brian Severino MD [facility] ENT [place] [address] [place] [address] 03/02/2023 11:06:00 03/02/2023 11:47:19 Singers' nodes [id number] J38.2 Dysphagia [id number] R13.1 0 Health Concerns Section Related Observation LastModified by Organization Detai ls LastModified Time None Recorded Concern Status LastModified by Organization Details LastModified Time None Recorded Advance Directives Directive N: Payers Encounter Date Sequence Insurance Name Policy Number Policy Atkinson Covered Member ID Atkinson Member ID Guarantor Name 02/23/2023 1 [facility] [id number] He Lazcano 03/02/2023 1 [facility] Ángel Lazcano [id number] He Lazcano Notes Date Note Type Note Provider Name and Address Organization Details Recorded Time 02/23/2023 text/html Anxiety stable. At time source. At times feels like trouble swallowing. Unruly Ortiz MD [address], [facility] [address], [place], [address], [employer] [facility] [employer] [facility] 02/23/2023 22:12:52 03/02/2023 text/html this patient reports hoarseness for at least a year and dysphagia for probably a month. He has a barium swallow scheduled for next week. Brian Severino MD [address], [facility] [address], [place], [address], [employer] [facility] [employer] [facility] 03/02/2023 11:35:29
--- OUTSIDE RECORDS SUMMARY | 2025-02-09 16:30 | XMS_ITS | Patient Health Record ---
Author Organization [facility] [employer] Address [address] 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 Name Role Phone Alberto Sy MD Primary Care Provider UnavailMontserrat Kiran Unavailable [phone] Brett Cotto Unavailable [phone] Migration, Provider Unavailable Unavailable Allergies No Known Allergies Reason For Referral No Information Medications Medication SIG (Take, Route, Frequency, Duration) Notes Start Date End Date Status buPROPion HCl ER (XL) 300 MG 1 tablet every morning Oral Once a day for 90 days Active Escitalopram Oxalate 20 MG 1 tablet Oral once a day for 90 days Active Montelukast Sodium 10 MG 1 tablet Oral O nce a day 02/27/2024 Active Propranolol HCl 80 MG 1 tablet Oral Twic e a day 02/27/2024 Active lamoTRIgine 150 MG 1 tablet Orally once a day for 90 days Active Propranolol HCl 40 MG Oral 02/27/2024 Not-Taking HYDROcodone-Acetaminophen 5-325 MG Oral 02/27/2024 Not-Taking Venlafaxine HCl ER 150 MG 1 capsule ever y motning Oral Once a day for 90 days Active busPIRone HCl 10 MG 1 tablet Oral Twice a day for 90 days Active Tamsulosin HCl 0.4 MG 1 capsule Oral Onc e a day 02/27/2024 Active lamoTRIgine 100 MG 1 tablet Orally once a day for 90 days Not-Taking Escitalopram Oxalate 20 MG TAKE 1 TABLET BY MOUTH EVERY DAY for 90 Active Social History Tobacco Use: Social History Observation Description Date Details (start date - stop date) Never Smoker NA - NA Sex Assigned At : Social History Observation Description Sex Assigned At Male Tobacco Control (Standard) Question Answer Notes Tobacco use: Nonsmoker Problems Problem Type SNOMED Code ICD Code Onset Dates Problem Status W/U Status Risk Notes Problem Moderate recurrent major depression (88456441) Major depressive disorder, recurrent, moderate (F33.1) 4 Active confirmed Problem Generalized anxiety disorder (25333424) Generalized anxiety disorder (F41.1) 4 Active confirmed Problem Insomnia disorder related to another mental disorder (46689917) Insomnia due to other mental disorder (F51.05) 4 Active confirmed Problem Attention-defici t hyperactivity disorder, predominantly inattentive type (F90.0) 4 Active confirmed Problem Long-term current use of drug therapy (448702287) Other medical terminologist (current) drug therapy (Z79.899) 4 Active confirmed Problem 60389366 Elevated blood pressure reading (R03.0) Active confirmed Vital Signs Heart Rate 63 /min 01/08/2025 Temperature 96.7 degrees Fahrenheit 07/02/2024 Height-cm 180.34 cm 01/08/2025 Blood pressure diastolic 83 mm Hg 01/08/2025 Weight-kg 112.76 kg 01/08/2025 Height 71.00 in 01/08/2025 Blood pressure systolic 127 mm Hg 01/08/2025 Weight 248.6 lbs 01/08/2025 BMI 34.67 kg/m2 01/08/2025 Encounters Encounter Location Date Provider Diagnosis [facility] [address] [facility] [address] [address] 02/27/2024 Montserrat Pimentel Attention-deficit hyperactivity disorder, predominantly inattentive type F90.0 ; Generalized anxiety disorder F41.1 ; Major depressive disorder, recurrent, moderate F33.1 ; Other medical terminologist (current) drug therapy Z79.899 and Insomnia due to other mental disorder F51.05 [facility] [address] [facility] [address] [place] [address] 06/04/2024 Montserrat Pimentel Major depressive disorder, recurrent, moderate F33.1 ; Generalized anxiety disorder F41.1 ; Attention-deficit hyperactivity disorder, predominantly inattentive type F90.0 ; Insomnia due to other mental disorder F51.05 and Other group home (current) drug therapy Z79.899 [facility], [facility] [address] [place] [address] [place] [address] 07/02/2024 Montserratalesha Pimentel Major depressive disorder, recurrent, moderate F33.1 ; Generalized anxiety disorder F41.1 ; Attention-deficit hyperactivity disorder, predominantly inattentive type F90.0 ; Insomnia due to other mental disorder F51.05 and Other medical terminologist (current) drug therapy Z79.899 [facility], [facility] [address] [place] [address] [place] [address] 07/27/2024 Brett Cotto Recurrent major depressive episodes, moderate F33.1 ; Generalized anxiety disorder F41.1 and ADHD, predominantly inattentive type F90.0 [facility], [facility] [address] [place] [address] [place] [address] 07/30/2024 Montserrat Pimentel Major depressive disorder, recurrent, moderate F33.1 ; Generalized anxiety disorder F41.1 ; Attention-deficit hyperactivity disorder, predominantly inattentive type F90.0 ; Insomnia due to other mental disorder F51.05 and Other medical terminologist (current) drug therapy Z79.899 [facility], [facility] [address] [place] [address] [place] [address] 08/10/2024 Brett Cotto Depression, major, recurrent, moderate F33.1 and Generalized anxiety disorder F41.1 [facility], [facility] [address] [place] [address] [place] [address] 08/24/2024 Brett Cotto Depression, major, recurrent, moderate F33.1 and Generalized anxiety disorder F41.1 [facility], [facility] [address] [place] [address] [place] [address] 08/30/2024 Montserrat Pimentel Generalized anxiety disorder F41.1 ; Major depressive disorder, recurrent, moderate F33.1 ; Attention-deficit hyperactivity disorder, predominantly inattentive type F90.0 ; Insomnia due to other mental disorder F51.05 ; Other group home (current) drug therapy Z79.899 and Elevated blood pressure reading R03.0 [facility], [facility] [address] [place] [address] [place] [address] 09/07/2024 Brett Cotto Depression, major, recurrent, moderate F33.1 and Generalized anxiety disorder F41.[address] [address] 10/29/2024 Brett Cotto Depression, major, recurrent, moderate F33.1 and Generalized anxiety disorder F41.[address] [address] 11/26/2024 Brett Cotto Depression, major, recurrent, moderate F33.1 and Generalized anxiety disorder F41.[address] [address] 11/29/2024 Montserrat Pimentel Generalized anxiety disorder F41.1 ; Major depressive disorder, recurrent, moderate F33.1 ; Attention-deficit hyperactivity disorder, predominantly inattentive type F90.0 ; Insomnia due to other mental disorder F51.05 ; Other group home (current) drug therapy Z79.899 and Elevated blood pressure reading R03.[address] [address] 12/24/2024 Brett Cotto Encounter for screening for depression Z13.31 ; Depression, major, recurrent, moderate F33.1 and Generalized anxiety disorder F41.[address] [address] 01/08/2025 Montserrat Pimentel Generalized anxiety disorder F41.1 ; Major depressive disorder, recurrent, moderate F33.1 ; Attention-deficit hyperactivity disorder, predominantly inattentive type F90.0 ; Insomnia due to other mental disorder F51.05 ; Other medical terminologist (current) drug therapy Z79.899 ; Elevated blood pressure reading R03.0 and Encounter for screening for cardiovascular disorders Z13.[address] [address] 01/25/2025 Brett Cotto Depression, major, recurrent, moderate F33.1 ; Generalized anxiety disorder F41.1 and Encounter for screening for depression Z13.[address] [address] 02/25/2024 Provider Migration [address] [address] 02/26/2024 Provider Migration [address] [address] 07/02/2024 Montserrat Pimentel [facility] [employer] [address] [place] [address] [place] [address] 07/11/2024 Montserrat Pimentel Assessments Encounter Date Diagnosis (ICD Code) Assessment Notes Treatment Notes Treatment Clinical Notes Section Notes 02/27/2024 Major depressive disorder, recurrent, moderate (ICD-10 - F33.1) 02/27/2024 Generalized anxiety disorder (ICD-10 - F41.1) 02/27/2024 Insomnia due to other mental disorder (ICD-10 - F51.05) 02/27/2024 Attention-defici t hyperactivity disorder, predominantly inattentive type (ICD-10 - F90.0) 02/27/2024 Other group home (current) drug therapy (ICD-10 - Z79.899) 06/04/2024 Major depressive disorder, recurrent, moderate (ICD-10 - F33.1) Preventing Depression From Coming Back: Care Instructions material was published, Learning About Depression Screening material was published, Learning About Depression material was published, Learning About How to Get Help During a Mental Health Crisis material was published, Seasonal Affective Disorder: Care Instructions material was published 1. 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, and no to change soaps, foods, ect when adding or increase dose Add Lamtrogine 25 mg daily for 2 weeks then increase to 50 mg daily for depression Effexor 75 mg Daily Wellbutrin XL 300 mg daily Lexapro 20 mg daily hx therapy labs completed 12/03 discuss Spravato and TMS and educated on both tx options patient will review information on both treatment options educated on all medications, benefits, side effects and risk, and educated on depression, anxiety, and ADHD, mood d/o and educated on compliance of medications, metabolic and movement d/o education appointment is, continue therapy discussion with patient about course of treatment and patient instructions. education on serotonin syndrome SSRI/SNRI side effects discussed including but not limited to, gastric upset, nausea, vomiting, diarrhea and/or constipation, weight changes, sexual side effects including loss of libido, increased suicidal thoughts/behavior s in children and young adults, and serotonin syndrome. 2. Generalized anxiety disorder - Effexor 150 mg Daily Wellbutrin XL 300 mg daily Buspar 10 mg three times a day monitor B/P on Effexor and neurologist prescribes propranolol for migraines/headach es Medication Management and Follow-Up - Plan: - Schedule follow-up appointments every 2-3 months to monitor the patient's response to the medication regimen. - Reinforce the importance of avoiding recreational drug use due to potential neurotoxicity and interactions with prescribed medications. 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 Attention deficit hyperactivity disorder, predominantly inattentive type -monitor 5. Long-term drug therapy Discussion Notes labs reviewed completed 12/0306/04/2024 Generalized anxiety disorder (ICD-10 - F41.1) Learning About Generalized Anxiety Disorder material was published, Generalized Anxiety Disorder: Care Instructions material was published, Learning About Anxiety Disorders material was published, Learning About Transcranial Magnetic Stimulation (TMS) material was published 1. 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, and no to change soaps, foods, ect when adding or increase dose Add Lamtrogine 25 mg daily for 2 weeks then increase to 50 mg daily for depression Effexor 75 mg Daily Wellbutrin XL 300 mg daily Lexapro 20 mg daily hx therapy labs completed 12/03 discuss Spravato and TMS and educated on both tx options patient will review information on both treatment options educated on all medications, benefits, side effects and risk, and educated on depression, anxiety, and ADHD, mood d/o and educated on compliance of medications, metabolic and movement d/o education appointment is, continue therapy discussion with patient about course of treatment and patient instructions. education on serotonin syndrome SSRI/SNRI side effects discussed including but not limited to, gastric upset, nausea, vomiting, diarrhea and/or constipation, weight changes, sexual side effects including loss of libido, increased suicidal thoughts/behavior s in children and young adults, and serotonin syndrome. 2. Generalized anxiety disorder - Effexor 150 mg Daily Wellbutrin XL 300 mg daily Buspar 10 mg three times a day monitor B/P on Effexor and neurologist prescribes propranolol for migraines/headach es Medication Management and Follow-Up - Plan: - Schedule follow-up appointments every 2-3 months to monitor the patient's response to the medication regimen. - Reinforce the importance of avoiding recreational drug use due to potential neurotoxicity and interactions with prescribed medications. 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 Attention deficit hyperactivity disorder, predominantly inattentive type -monitor 5. Long-term drug therapy Discussion Notes labs reviewed completed 12/0307/02/2024 Major depressive disorder, recurrent, moderate (ICD-10 - F33.1) Preventing Depression From Coming Back: Care Instructions material was published, Learning About Depression Screening material was published, Learning About Depression material was published, Learning About How to Get Help During a Mental Health Crisis material was published, Seasonal Affective Disorder: Care Instructions material was published 1. 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, and no to change soaps, foods, ect when adding or increase dose Lamtrogine 50 mg daily for depression been on this dose 8 days discuss possible increase to 100 mg dose for depression in near future discuss TMS and will schedule therapy also Effexor 75 mg Daily Wellbutrin XL 300 mg daily Lexapro 20 mg daily hx therapy labs completed 12/03 discuss Spravato (he reported insurance will not cover and TMS - (he reported insurance may cover) and educated on both tx options patient will review information on both treatment options educated on all medications, benefits, side effects and risk, and educated on depression, anxiety, and ADHD, mood d/o and educated on compliance of medications, metabolic and movement d/o education appointment is, continue therapy discussion with patient about course of treatment and patient instructions. education on serotonin syndrome SSRI/SNRI side effects discussed including but not limited to, gastric upset, nausea, vomiting, diarrhea and/or constipation, weight changes, sexual side effects including loss of libido, increased suicidal thoughts/behavior s in children and young adults, and serotonin syndrome. 2. Generalized anxiety disorder - Effexor 150 mg Daily Wellbutrin XL 300 mg daily Buspar 10 mg three times a day monitor B/P on Effexor and neurologist prescribes propranolol for migraines/headach es Medication Management and Follow-Up - Plan: - Schedule follow-up appointments every 2-3 months to monitor the patient's response to the medication regimen. - Reinforce the importance of avoiding recreational drug use due to potential neurotoxicity and interactions with prescribed medications. 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 Attention deficit hyperactivity disorder, predominantly inattentive type -monitor 5. Long-term drug therapy Discussion Notes labs reviewed completed 12/0307/27/2024 Generalized anxiety disorder (ICD-10 - F41.1) 58 year old male seen today for initial assessment to start individual psychotherapy. Reported that he has seen Montserrat Pimentel for medication therapy for the three or four years. Hx of depression and anxiety reported by client. Believes he has suffered from depression for most of his life while anxiety has been presen since teen years. Depression has been worse through out his life. No prior suicide attempts but noted that he does have a hx of entertaining suicidal ideations. Last had thoughts passive thoughts in the past week, plan and intent denied. No psych admissions but has been to out patient psychotherapy. Noted that he saw a therapist here about two or three years ago for about a year. Client reported that he worries a lot about disappointing and letting people down, loosing his job, harm coming to his family and the future. Family his is denied for mental illness. Client born and grew [place] in [facility]. Noted that he is the youngest of 5; three brothers and one sister. Client described childhood as being ignored a lot. He has been for 35 years and has a son and daughter, both in their 30's. 07/27/2024 Recurrent major depressive episodes, moderate (ICD-10 - F33.1) 58 year old male seen today for initial assessment to start individual psychotherapy. Reported that he has seen Montserrat Pimentel for medication therapy for the three or four years. Hx of depression and anxiety reported by client. Believes he has suffered from depression for most of his life while anxiety has been presen since teen years. Depression has been worse through out his life. No prior suicide attempts but noted that he does have a hx of entertaining suicidal ideations. Last had thoughts passive thoughts in the past week, plan and intent denied. No psych admissions but has been to out patient psychotherapy. Noted that he saw a therapist here about two or three years ago for about a year. Client reported that he worries a lot about disappointing and letting people down, loosing his job, harm coming to his family and the future. Family his is denied for mental illness. Client born and grew up in [place] [facility]. Noted that he is the youngest of 5; three brothers and one sister. Client described childhood as being ignored a lot. He has been for 35 years and has a son and daughter, both in their 30's. 07/30/2024 Major depressive disorder, recurrent, moderate (ICD-10 - F33.1) Preventing Depression From Coming Back: Care Instructions material was published, Learning About Depression Screening material was published, Learning About Depression material was published, Learning About How to Get Help During a Mental Health Crisis material was published, Seasonal Affective Disorder: Care Instructions material was published 1. 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, and no to change soaps, foods, ect when adding or increase dose currently on Lamtrogine 50 mg daily for depression discuss and education increase Lamotrigine to 100 mg dose for depression discuss TMS and will schedule therapy also- seen Brett last week- continue therapy Effexor 75 mg Daily Wellbutrin XL 300 mg daily Lexapro 20 mg daily hx therapy labs completed 12/03 discuss Spravato (he reported insurance will not cover and TMS - (he reported insurance may cover) and educated on both tx options patient will review information on both treatment options educated on all medications, benefits, side effects and risk, and educated on depression, anxiety, and ADHD, mood d/o and educated on compliance of medications, metabolic and movement d/o education appointment is, continue therapy discussion with patient about course of treatment and patient instructions. education on serotonin syndrome SSRI/SNRI side effects discussed including but not limited to, gastric upset, nausea, vomiting, diarrhea and/or constipation, weight changes, sexual side effects including loss of libido, increased suicidal thoughts/behavior s in children and young adults, and serotonin syndrome. 2. Generalized anxiety disorder - Effexor 150 mg Daily Wellbutrin XL 300 mg daily Buspar 10 mg three times a day monitor B/P on Effexor and neurologist prescribes propranolol for migraines/headach es Medication Management and Follow-Up - Plan: - Schedule follow-up appointments every 2-3 months to monitor the patient's response to the medication regimen. - Reinforce the importance of avoiding recreational drug use due to potential neurotoxicity and interactions with prescribed medications. 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 Attention deficit hyperactivity disorder, predominantly inattentive type -monitor 5. Long-term drug therapy Discussion Notes labs reviewed completed 12/0308/10/2024 Generalized anxiety disorder (ICD-10 - F41.1) 58 year old male seen today for initial assessment to start individual psychotherapy. Reported that he has seen Montserrat Pimentel for medication therapy for the three or four years. Hx of depression and anxiety reported by client. Believes he has suffered from depression for most of his life while anxiety has been presen since teen years. Depression has been worse through out his life. No prior suicide attempts but noted that he does have a hx of entertaining suicidal ideations. Last had thoughts passive thoughts in the past week, plan and intent denied. No psych admissions but has been to out patient psychotherapy. Noted that he saw a therapist here about two or three years ago for about a year. Client reported that he worries a lot about disappointing and letting people down, loosing his job, harm coming to his family and the future. Family his is denied for mental illness. Client born and grew up in [facility] [place] [facility] [place] [facility]. Noted that he is the youngest of 5; three brothers and one sister. Client described childhood as being ignored a lot. He has been for 35 years and has a son and daughter, both in their 30's. 08/10/2024 Depression, major, recurrent, moderate (ICD-10 - F33.1) 58 year old male seen today for initial assessment to start individual psychotherapy. Reported that he has seen Montserrat Pimentel for medication therapy for the three or four years. Hx of depression and anxiety reported by client. Believes he has suffered from depression for most of his life while anxiety has been presen since teen years. Depression has been worse through out his life. No prior suicide attempts but noted that he does have a hx of entertaining suicidal ideations. Last had thoughts passive thoughts in the past week, plan and intent denied. No psych admissions but has been to out patient psychotherapy. Noted that he saw a therapist here about two or three years ago for about a year. Client reported that he worries a lot about disappointing and letting people down, loosing his job, harm coming to his family and the future. Family his is denied for mental illness. Client born and grew up in [facility]. Noted that he is the youngest of 5; three brothers and one sister. Client described childhood as being ignored a lot. He has been for 35 years and has a son and daughter, both in their 30's. 08/24/2024 Generalized anxiety disorder (ICD-10 - F41.1) 58 year old male seen today for initial assessment to start individual psychotherapy. Reported that he has seen Montserrat Pimentel for medication therapy for the three or four years. Hx of depression and anxiety reported by client. Believes he has suffered from depression for most of his life while anxiety has been presen since teen years. Depression has been worse through out his life. No prior suicide attempts but noted that he does have a hx of entertaining suicidal ideations. Last had thoughts passive thoughts in the past week, plan and intent denied. No psych admissions but has been to out patient psychotherapy. Noted that he saw a therapist here about two or three years ago for about a year. Client reported that he worries a lot about disappointing and letting people down, loosing his job, harm coming to his family and the future. Family his is denied for mental illness. Client born and grew up in [facility]. Noted that he is the youngest of 5; three brothers and one sister. Client described childhood as being ignored a lot. He has been for 35 years and has a son and daughter, both in their 30's. 08/24/2024 Depression, major, recurrent, moderate (ICD-10 - F33.1) 58 year old male seen today for initial assessment to start individual psychotherapy. Reported that he has seen Montserrat Pimentel for medication therapy for the three or four years. Hx of depression and anxiety reported by client. Believes he has suffered from depression for most of his life while anxiety has been presen since teen years. Depression has been worse through out his life. No prior suicide attempts but noted that he does have a hx of entertaining suicidal ideations. Last had thoughts passive thoughts in the past week, plan and intent denied. No psych admissions but has been to out patient psychotherapy. Noted that he saw a therapist here about two or three years ago for about a year. Client reported that he worries a lot about disappointing and letting people down, loosing his job, harm coming to his family and the future. Family his is denied for mental illness. Client born and grew up in [facility]. Noted that he is the youngest of 5; three brothers and one sister. Client described childhood as being ignored a lot. He has been for 35 years and has a son and daughter, both in their 30's. 08/30/2024 Generalized anxiety disorder (ICD-10 - F41.1) Learning About Generalized Anxiety Disorder material was published, Generalized Anxiety Disorder: Care Instructions material was published, Learning About Anxiety Disorders material was published, Learning About Transcranial Magnetic Stimulation (TMS) material was published 1. 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, and no to change soaps, foods, ect when adding or increase dose discuss and education Lamotrigine to 100 mg dose for depression discuss TMS and will schedule therapy also- seen Brett last week- continue therapy Effexor 75 mg Daily Wellbutrin XL 300 mg daily Lexapro 20 mg daily hx therapy labs completed 12/03 discuss Spravato (he reported insurance will not cover and TMS - (he reported insurance may cover) and educated on both tx options patient will review information on both treatment options educated on all medications, benefits, side effects and risk, and educated on depression, anxiety, and ADHD, mood d/o and educated on compliance of medications, metabolic and movement d/o education appointment is, continue therapy discussion with patient about course of treatment and patient instructions. education on serotonin syndrome SSRI/SNRI side effects discussed including but not limited to, gastric upset, nausea, vomiting, diarrhea and/or constipation, weight changes, sexual side effects including loss of libido, increased suicidal thoughts/behavior s in children and young adults, and serotonin syndrome. 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 Incidence with adjunct of epilepsy treatment 0.8% in 2 to 16 years old and 0.3% in adults, bipolar and other mood disorders incidence 0.8% this initial monotherapy and 0.13% as adjunctive treatment. Other risk factor may include concomitant use of valproate acid derivative or exceeding initial lamotrigine does or does as clinician recommendation; most life-threatening rash of occurring first 2 to 8 week of treatment with isolated cases after prolonged treatment; though benign may occur, discontinue treatment at first sign of rash unless clearly not a drug related; TC treatment may not prevent trash from becoming life-threatening or permanently disabling or disfiguring. Comment reaction include, nausea/vomiting, dizziness/vertigo , visual disturbances, somnolence, ataxia, pruritus/rash, pharyngitis, headache, rhinitis, diarrhea, fever, asthenia, insomnia, tremor, abdominal pain, cough, accidental injury, constipation, dysmenorrhea, incoordination, anxiety, seizures, irritability, anorexia, xerostomia, and photosensitivity. Serious reactions include: Rash, severe; Rey Siddhartha syndrome; toxic epidermal necrosis; injury edema, hypersensitivity reactions. Including fatal, multiple organ failure to safe fatal, rash with eosinophilia systemic symptoms, DIC, neutropenia, leukopenia, thrombocytopenia, pancytopenia, aplastic anemia, hemolytic anemia, i pancreatitis, hepatic failure, rhabdomyolysis, worsening of suicidal ideation, worsening of depression, cleft lip/palate [first trimester use] DO not Change Cosmetic, perfumes or soap for next 4 weeks. The patient was advice to take lamotrigine as prescribed the patient was instructed not to deviate from the prescription dosages. Stop lamotrigine is the first sign of rash. Patient was insisted to inform office if any of the serious side effect develops. 2. Generalized anxiety disorder - Effexor 150 mg Daily Wellbutrin XL 300 mg daily Buspar 10 mg three times a day monitor B/P on Effexor and neurologist prescribes propranolol for migraines/headach es Medication Management and Follow-Up - Plan: - Schedule follow-up appointments every 2-3 months to monitor the patient's response to the medication regimen. - Reinforce the importance of avoiding recreational drug use due to potential neurotoxicity and interactions with prescribed medications. 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 Attention deficit hyperactivity disorder, predominantly inattentive type -monitor 5. Long-term drug therapy Discussion Notes labs reviewed completed 12/0309/07/2024 Generalized anxiety disorder (ICD-10 - F41.1) 58 year old male seen today for initial assessment to start individual psychotherapy. Reported that he has seen Montserrat Pimentel for medication therapy for the three or four years. Hx of depression and anxiety reported by client. Believes he has suffered from depression for most of his life while anxiety has been presen since teen years. Depression has been worse through out his life. No prior suicide attempts but noted that he does have a hx of entertaining suicidal ideations. Last had thoughts passive thoughts in the past week, plan and intent denied. No psych admissions but has been to out patient psychotherapy. Noted that he saw a therapist here about two or three years ago for about a year. Client reported that he worries a lot about disappointing and letting people down, loosing his job, harm coming to his family and the future. Family his is denied for mental illness. Client born and grew up in [facility]. Noted that he is the youngest of 5; three brothers and one sister. Client described childhood as being ignored a lot. He has been for 35 years and has a son and daughter, both in their 30's. 09/07/2024 Depression, major, recurrent, moderate (ICD-10 - F33.1) 58 year old male seen today for initial assessment to start individual psychotherapy. Reported that he has seen Montserrat Pimentel for medication therapy for the three or four years. Hx of depression and anxiety reported by client. Believes he has suffered from depression for most of his life while anxiety has been presen since teen years. Depression has been worse through out his life. No prior suicide attempts but noted that he does have a hx of entertaining suicidal ideations. Last had thoughts passive thoughts in the past week, plan and intent denied. No psych admissions but has been to out patient psychotherapy. Noted that he saw a therapist here about two or three years ago for about a year. Client reported that he worries a lot about disappointing and letting people down, loosing his job, harm coming to his family and the future. Family his is denied for mental illness. Client born and grew up in [facility]. Noted that he is the youngest of 5; three brothers and one sister. Client described childhood as being ignored a lot. He has been for 35 years and has a son and daughter, both in their 30's. 10/29/2024 Generalized anxiety disorder (ICD-10 - F41.1) 58 year old male seen today for initial assessment to start individual psychotherapy. Reported that he has seen Montserrat Pimentel for medication therapy for the three or four years. Hx of depression and anxiety reported by client. Believes he has suffered from depression for most of his life while anxiety has been presen since teen years. Depression has been worse through out his life. No prior suicide attempts but noted that he does have a hx of entertaining suicidal ideations. Last had thoughts passive thoughts in the past week, plan and intent denied. No psych admissions but has been to out patient psychotherapy. Noted that he saw a therapist here about two or three years ago for about a year. Client reported that he worries a lot about disappointing and letting people down, loosing his job, harm coming to his family and the future. Family his is denied for mental illness. Client born and grew up in [facility]. Noted that he is the youngest of 5; three brothers and one sister. Client described childhood as being ignored a lot. He has been for 35 years and has a son and daughter, both in their 30's. 10/29/2024 Depression, major, recurrent, moderate (ICD-10 - F33.1) 58 year old male seen today for initial assessment to start individual psychotherapy. Reported that he has seen Montserrat Pimentel for medication therapy for the three or four years. Hx of depression and anxiety reported by client. Believes he has suffered from depression for most of his life while anxiety has been presen since teen years. Depression has been worse through out his life. No prior suicide attempts but noted that he does have a hx of entertaining suicidal ideations. Last had thoughts passive thoughts in the past week, plan and intent denied. No psych admissions but has been to out patient psychotherapy. Noted that he saw a therapist here about two or three years ago for about a year. Client reported that he worries a lot about disappointing and letting people down, loosing his job, harm coming to his family and the future. Family his is denied for mental illness. Client born and grew up in [facility]. Noted that he is the youngest of 5; three brothers and one sister. Client described childhood as being ignored a lot. He has been for 35 years and has a son and daughter, both in their 30's. 11/26/2024 Generalized anxiety disorder (ICD-10 - F41.1) 58 year old male seen today for initial assessment to start individual psychotherapy. Reported that he has seen Montserrat Pimentel for medication therapy for the three or four years. Hx of depression and anxiety reported by client. Believes he has suffered from depression for most of his life while anxiety has been presen since teen years. Depression has been worse through out his life. No prior suicide attempts but noted that he does have a hx of entertaining suicidal ideations. Last had thoughts passive thoughts in the past week, plan and intent denied. No psych admissions but has been to out patient psychotherapy. Noted that he saw a therapist here about two or three years ago for about a year. Client reported that he worries a lot about disappointing and letting people down, loosing his job, harm coming to his family and the future. Family his is denied for mental illness. Client born and grew up in [facility]. Noted that he is the youngest of 5; three brothers and one sister. Client described childhood as being ignored a lot. He has been for 35 years and has a son and daughter, both in their 30's. 11/26/2024 Depression, major, recurrent, moderate (ICD-10 - F33.1) 58 year old male seen today for initial assessment to start individual psychotherapy. Reported that he has seen Montserrat Pimentel for medication therapy for the three or four years. Hx of depression and anxiety reported by client. Believes he has suffered from depression for most of his life while anxiety has been presen since teen years. Depression has been worse through out his life. No prior suicide attempts but noted that he does have a hx of entertaining suicidal ideations. Last had thoughts passive thoughts in the past week, plan and intent denied. No psych admissions but has been to out patient psychotherapy. Noted that he saw a therapist here about two or three years ago for about a year. Client reported that he worries a lot about disappointing and letting people down, loosing his job, harm coming to his family and the future. Family his is denied for mental illness. Client born and grew up in [facility]. Noted that he is the youngest of 5; three brothers and one sister. Client described childhood as being ignored a lot. He has been for 35 years and has a son and daughter, both in their 30's. 11/29/2024 Generalized anxiety disorder (ICD-10 - F41.1) Learning About Generalized Anxiety Disorder material was published, Generalized Anxiety Disorder: Care Instructions material was published, Learning About Anxiety Disorders material was published, Learning About Transcranial Magnetic Stimulation (TMS) material was published 1. 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, and no to change soaps, foods, ect when adding or increase dose discuss and education Lamotrigine to 150 mg dose for depression discuss TMS will consider pamplet given PHQ9= 11 11/29/24 schedule therapy also- seen Brett continue therapy Effexor 75 mg Daily Wellbutrin XL 300 mg daily Lexapro 20 mg daily hx therapy discuss Spravato (he reported insurance will not cover and TMS - (he reported insurance may cover) and educated on both tx options patient will review information on both treatment options educated on all medications, benefits, side effects and risk, and educated on depression, anxiety, and ADHD, mood d/o and educated on compliance of medications, metabolic and movement d/o education appointment is, continue therapy discussion with patient about course of treatment and patient instructions. education on serotonin syndrome SSRI/SNRI side effects discussed including but not limited to, gastric upset, nausea, vomiting, diarrhea and/or constipation, weight changes, sexual side effects including loss of libido, increased suicidal thoughts/behavior s in children and young adults, and serotonin syndrome. 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 Incidence with adjunct of epilepsy treatment 0.8% in 2 to 16 years old and 0.3% in adults, bipolar and other mood disorders incidence 0.8% this initial monotherapy and 0.13% as adjunctive treatment. Other risk factor may include concomitant use of valproate acid derivative or exceeding initial lamotrigine does or does as clinician recommendation; most life-threatening rash of occurring first 2 to 8 week of treatment with isolated cases after prolonged treatment; though benign may occur, discontinue treatment at first sign of rash unless clearly not a drug related; TC treatment may not prevent trash from becoming life-threatening or permanently disabling or disfiguring. Comment reaction include, nausea/vomiting, dizziness/vertigo , visual disturbances, somnolence, ataxia, pruritus/rash, pharyngitis, headache, rhinitis, diarrhea, fever, asthenia, insomnia, tremor, abdominal pain, cough, accidental injury, constipation, dysmenorrhea, incoordination, anxiety, seizures, irritability, anorexia, xerostomia, and photosensitivity. Serious reactions include: Rash, severe; Rey Siddhartha syndrome; toxic epidermal necrosis; injury edema, hypersensitivity reactions. Including fatal, multiple organ failure to safe fatal, rash with eosinophilia systemic symptoms, DIC, neutropenia, leukopenia, thrombocytopenia, pancytopenia, aplastic anemia, hemolytic anemia, i pancreatitis, hepatic failure, rhabdomyolysis, worsening of suicidal ideation, worsening of depression, cleft lip/palate [first trimester use] DO not Change Cosmetic, perfumes or soap for next 4 weeks. The patient was advice to take lamotrigine as prescribed the patient was instructed not to deviate from the prescription dosages. Stop lamotrigine is the first sign of rash. Patient was insisted to inform office if any of the serious side effect develops. 2. Generalized anxiety disorder - Effexor 150 mg Daily Wellbutrin XL 300 mg daily Buspar 10 mg three times a day monitor B/P on Effexor and neurologist prescribes propranolol for migraines/headach es Medication Management and Follow-Up - Plan: - Schedule follow-up appointments every 2-3 months to monitor the patient's response to the medication regimen. - Reinforce the importance of avoiding recreational drug use due to potential neurotoxicity and interactions with prescribed medications. 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 Attention deficit hyperactivity disorder, predominantly inattentive type -monitor 5. Long-term drug therapy Discussion Notes labs reviewed completed 12/0312/24/2024 Encounter for screening for depression (ICD-10 - Z13.31) 58 year old male seen today for initial assessment to start individual psychotherapy. Reported that he has seen Montserrat Pimentel for medication therapy for the three or four years. Hx of depression and anxiety reported by client. Believes he has suffered from depression for most of his life while anxiety has been presen since teen years. Depression has been worse through out his life. No prior suicide attempts but noted that he does have a hx of entertaining suicidal ideations. Last had thoughts passive thoughts in the past week, plan and intent denied. No psych admissions but has been to out patient psychotherapy. Noted that he saw a therapist here about two or three years ago for about a year. Client reported that he worries a lot about disappointing and letting people down, loosing his job, harm coming to his family and the future. Family his is denied for mental illness. Client born and grew up in [facility]. Noted that he is the youngest of 5; three brothers and one sister. Client described childhood as being ignored a lot. He has been for 35 years and has a son and daughter, both in their 30's. 12/24/2024 Depression, major, recurrent, moderate (ICD-10 - F33.1) 58 year old male seen today for initial assessment to start individual psychotherapy. Reported that he has seen Montserrat Pimentel for medication therapy for the three or four years. Hx of depression and anxiety reported by client. Believes he has suffered from depression for most of his life while anxiety has been presen since teen years. Depression has been worse through out his life. No prior suicide attempts but noted that he does have a hx of entertaining suicidal ideations. Last had thoughts passive thoughts in the past week, plan and intent denied. No psych admissions but has been to out patient psychotherapy. Noted that he saw a therapist here about two or three years ago for about a year. Client reported that he worries a lot about disappointing and letting people down, loosing his job, harm coming to his family and the future. Family his is denied for mental illness. Client born and grew up in [facility]. Noted that he is the youngest of 5; three brothers and one sister. Client described childhood as being ignored a lot. He has been for 35 years and has a son and daughter, both in their 30's. 01/08/2025 Generalized anxiety disorder (ICD-10 - F41.1) Learning About Generalized Anxiety Disorder material was published, Generalized Anxiety Disorder: Care Instructions material was published, Learning About Anxiety Disorders material was published, Learning About Transcranial Magnetic Stimulation (TMS) material was published 1. 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, and no to change soaps, foods, ect when adding or increase dose discuss and education Lamotrigine to 150 mg dose for depression discuss TMS will consider pamplet given PHQ9= 11 11/29/24 schedule therapy also- seen Brett continue therapy Effexor 75 mg Daily Wellbutrin XL 300 mg daily Lexapro 20 mg daily hx therapy discuss Spravato (he reported insurance will not cover and TMS - (he reported insurance may cover) and educated on both tx options patient will review information on both treatment options educated on all medications, benefits, side effects and risk, and educated on depression, anxiety, and ADHD, mood d/o and educated on compliance of medications, metabolic and movement d/o education appointment is, continue therapy discussion with patient about course of treatment and patient instructions. education on serotonin syndrome SSRI/SNRI side effects discussed including but not limited to, gastric upset, nausea, vomiting, diarrhea and/or constipation, weight changes, sexual side effects including loss of libido, increased suicidal thoughts/behavior s in children and young adults, and serotonin syndrome. 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 Incidence with adjunct of epilepsy treatment 0.8% in 2 to 16 years old and 0.3% in adults, bipolar and other mood disorders incidence 0.8% this initial monotherapy and 0.13% as adjunctive treatment. Other risk factor may include concomitant use of valproate acid derivative or exceeding initial lamotrigine does or does as clinician recommendation; most life-threatening rash of occurring first 2 to 8 week of treatment with isolated cases after prolonged treatment; though benign may occur, discontinue treatment at first sign of rash unless clearly not a drug related; TC treatment may not prevent trash from becoming life-threatening or permanently disabling or disfiguring. Comment reaction include, nausea/vomiting, dizziness/vertigo , visual disturbances, somnolence, ataxia, pruritus/rash, pharyngitis, headache, rhinitis, diarrhea, fever, asthenia, insomnia, tremor, abdominal pain, cough, accidental injury, constipation, dysmenorrhea, incoordination, anxiety, seizures, irritability, anorexia, xerostomia, and photosensitivity. Serious reactions include: Rash, severe; Rey Siddhartha syndrome; toxic epidermal necrosis; injury edema, hypersensitivity reactions. Including fatal, multiple organ failure to safe fatal, rash with eosinophilia systemic symptoms, DIC, neutropenia, leukopenia, thrombocytopenia, pancytopenia, aplastic anemia, hemolytic anemia, i pancreatitis, hepatic failure, rhabdomyolysis, worsening of suicidal ideation, worsening of depression, cleft lip/palate [first trimester use] DO not Change Cosmetic, perfumes or soap for next 4 weeks. The patient was advice to take lamotrigine as prescribed the patient was instructed not to deviate from the prescription dosages. Stop lamotrigine is the first sign of rash. Patient was insisted to inform office if any of the serious side effect develops. 2. Generalized anxiety disorder - Effexor 150 mg Daily Wellbutrin XL 300 mg daily Buspar 10 mg three times a day monitor B/P on Effexor and neurologist prescribes propranolol for migraines/headach es Medication Management and Follow-Up - Plan: - Schedule follow-up appointments every 2-3 months to monitor the patient's response to the medication regimen. - Reinforce the importance of avoiding recreational drug use due to potential neurotoxicity and interactions with prescribed medications. 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 Attention deficit hyperactivity disorder, predominantly inattentive type -monitor 5. Long-term drug therapy Discussion Notes 01/25/2025 Generalized anxiety disorder (ICD-10 - F41.1) 58 year old male seen today for initial assessment to start individual psychotherapy. Reported that he has seen Montserrat Pimentel for medication therapy for the three or four years. Hx of depression and anxiety reported by client. Believes he has suffered from depression for most of his life while anxiety has been presen since teen years. Depression has been worse through out his life. No prior suicide attempts but noted that he does have a hx of entertaining suicidal ideations. Last had thoughts passive thoughts in the past week, plan and intent denied. No psych admissions but has been to out patient psychotherapy. Noted that he saw a therapist here about two or three years ago for about a year. Client reported that he worries a lot about disappointing and letting people down, loosing his job, harm coming to his family and the future. Family his is denied for mental illness. Client born and grew [place] in [facility]. Noted that he is the youngest of 5; three brothers and one sister. Client described childhood as being ignored a lot. He has been for 35 years and has a son and daughter, both in their 30's. 01/25/2025 Depression, major, recurrent, moderate (ICD-10 - F33.1) 58 year old male seen today for initial assessment to start individual psychotherapy. Reported that he has seen Montserrat Pimentel for medication therapy for the three or four years. Hx of depression and anxiety reported by client. Believes he has suffered from depression for most of his life while anxiety has been presen since teen years. Depression has been worse through out his life. No prior suicide attempts but noted that he does have a hx of entertaining suicidal ideations. Last had thoughts passive thoughts in the past week, plan and intent denied. No psych admissions but has been to out patient psychotherapy. Noted that he saw a therapist here about two or three years ago for about a year. Client reported that he worries a lot about disappointing and letting people down, loosing his job, harm coming to his family and the future. Family his is denied for mental illness. Client born and grew up in [facility]. Noted that he is the youngest of 5; three brothers and one sister. Client described childhood as being ignored a lot. He has been for 35 years and has a son and daughter, both in their 30's. 12/24/2024 Generalized anxiety disorder (ICD-10 - F41.1) 58 year old male seen today for initial assessment to start individual psychotherapy. Reported that he has seen Montserrat Pimentel for medication therapy for the three or four years. Hx of depression and anxiety reported by client. Believes he has suffered from depression for most of his life while anxiety has been presen since teen years. Depression has been worse through out his life. No prior suicide attempts but noted that he does have a hx of entertaining suicidal ideations. Last had thoughts passive thoughts in the past week, plan and intent denied. No psych admissions but has been to out patient psychotherapy. Noted that he saw a therapist here about two or three years ago for about a year. Client reported that he worries a lot about disappointing and letting people down, loosing his job, harm coming to his family and the future. Family his is denied for mental illness. Client born and grew up in [facility]. Noted that he is the youngest of 5; three brothers and one sister. Client described childhood as being ignored a lot. He has been for 35 years and has a son and daughter, both in their 30's. 01/08/2025 Major depressive disorder, recurrent, moderate (ICD-10 - F33.1) Preventing Depression From Coming Back: Care Instructions material was published, Learning About Depression Screening material was published, Learning About Depression material was published, Learning About How to Get Help During a Mental Health Crisis material was published, Seasonal Affective Disorder: Care Instructions material was published 1. 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, and no to change soaps, foods, ect when adding or increase dose discuss and education Lamotrigine to 150 mg dose for depression discuss TMS will consider pamplet given PHQ9= 11 11/29/24 schedule therapy also- seen Brett continue therapy Effexor 75 mg Daily Wellbutrin XL 300 mg daily Lexapro 20 mg daily hx therapy discuss Spravato (he reported insurance will not cover and TMS - (he reported insurance may cover) and educated on both tx options patient will review information on both treatment options educated on all medications, benefits, side effects and risk, and educated on depression, anxiety, and ADHD, mood d/o and educated on compliance of medications, metabolic and movement d/o education appointment is, continue therapy discussion with patient about course of treatment and patient instructions. education on serotonin syndrome SSRI/SNRI side effects discussed including but not limited to, gastric upset, nausea, vomiting, diarrhea and/or constipation, weight changes, sexual side effects including loss of libido, increased suicidal thoughts/behavior s in children and young adults, and serotonin syndrome. 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 Incidence with adjunct of epilepsy treatment 0.8% in 2 to 16 years old and 0.3% in adults, bipolar and other mood disorders incidence 0.8% this initial monotherapy and 0.13% as adjunctive treatment. Other risk factor may include concomitant use of valproate acid derivative or exceeding initial lamotrigine does or does as clinician recommendation; most life-threatening rash of occurring first 2 to 8 week of treatment with isolated cases after prolonged treatment; though benign may occur, discontinue treatment at first sign of rash unless clearly not a drug related; TC treatment may not prevent trash from becoming life-threatening or permanently disabling or disfiguring. Comment reaction include, nausea/vomiting, dizziness/vertigo , visual disturbances, somnolence, ataxia, pruritus/rash, pharyngitis, headache, rhinitis, diarrhea, fever, asthenia, insomnia, tremor, abdominal pain, cough, accidental injury, constipation, dysmenorrhea, incoordination, anxiety, seizures, irritability, anorexia, xerostomia, and photosensitivity. Serious reactions include: Rash, severe; Rey Siddhartha syndrome; toxic epidermal necrosis; injury edema, hypersensitivity reactions. Including fatal, multiple organ failure to safe fatal, rash with eosinophilia systemic symptoms, DIC, neutropenia, leukopenia, thrombocytopenia, pancytopenia, aplastic anemia, hemolytic anemia, i pancreatitis, hepatic failure, rhabdomyolysis, worsening of suicidal ideation, worsening of depression, cleft lip/palate [first trimester use] DO not Change Cosmetic, perfumes or soap for next 4 weeks. The patient was advice to take lamotrigine as prescribed the patient was instructed not to deviate from the prescription dosages. Stop lamotrigine is the first sign of rash. Patient was insisted to inform office if any of the serious side effect develops. 2. Generalized anxiety disorder - Effexor 150 mg Daily Wellbutrin XL 300 mg daily Buspar 10 mg three times a day monitor B/P on Effexor and neurologist prescribes propranolol for migraines/headach es Medication Management and Follow-Up - Plan: - Schedule follow-up appointments every 2-3 months to monitor the patient's response to the medication regimen. - Reinforce the importance of avoiding recreational drug use due to potential neurotoxicity and interactions with prescribed medications. 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 Attention deficit hyperactivity disorder, predominantly inattentive type -monitor 5. Long-term drug therapy Discussion Notes 11/29/2024 Major depressive disorder, recurrent, moderate (ICD-10 - F33.1) Preventing Depression From Coming Back: Care Instructions material was published, Learning About Depression Screening material was published, Learning About Depression material was published, Learning About How to Get Help During a Mental Health Crisis material was published, Seasonal Affective Disorder: Care Instructions material was published 1. 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, and no to change soaps, foods, ect when adding or increase dose discuss and education Lamotrigine to 150 mg dose for depression discuss TMS will consider pamplet given PHQ9= 11 11/29/24 schedule therapy also- seen Brett continue therapy Effexor 75 mg Daily Wellbutrin XL 300 mg daily Lexapro 20 mg daily hx therapy discuss Spravato (he reported insurance will not cover and TMS - (he reported insurance may cover) and educated on both tx options patient will review information on both treatment options educated on all medications, benefits, side effects and risk, and educated on depression, anxiety, and ADHD, mood d/o and educated on compliance of medications, metabolic and movement d/o education appointment is, continue therapy discussion with patient about course of treatment and patient instructions. education on serotonin syndrome SSRI/SNRI side effects discussed including but not limited to, gastric upset, nausea, vomiting, diarrhea and/or constipation, weight changes, sexual side effects including loss of libido, increased suicidal thoughts/behavior s in children and young adults, and serotonin syndrome. 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 Incidence with adjunct of epilepsy treatment 0.8% in 2 to 16 years old and 0.3% in adults, bipolar and other mood disorders incidence 0.8% this initial monotherapy and 0.13% as adjunctive treatment. Other risk factor may include concomitant use of valproate acid derivative or exceeding initial lamotrigine does or does as clinician recommendation; most life-threatening rash of occurring first 2 to 8 week of treatment with isolated cases after prolonged treatment; though benign may occur, discontinue treatment at first sign of rash unless clearly not a drug related; TC treatment may not prevent trash from becoming life-threatening or permanently disabling or disfiguring. Comment reaction include, nausea/vomiting, dizziness/vertigo , visual disturbances, somnolence, ataxia, pruritus/rash, pharyngitis, headache, rhinitis, diarrhea, fever, asthenia, insomnia, tremor, abdominal pain, cough, accidental injury, constipation, dysmenorrhea, incoordination, anxiety, seizures, irritability, anorexia, xerostomia, and photosensitivity. Serious reactions include: Rash, severe; Rey Siddhartha syndrome; toxic epidermal necrosis; injury edema, hypersensitivity reactions. Including fatal, multiple organ failure to safe fatal, rash with eosinophilia systemic symptoms, DIC, neutropenia, leukopenia, thrombocytopenia, pancytopenia, aplastic anemia, hemolytic anemia, i pancreatitis, hepatic failure, rhabdomyolysis, worsening of suicidal ideation, worsening of depression, cleft lip/palate [first trimester use] DO not Change Cosmetic, perfumes or soap for next 4 weeks. The patient was advice to take lamotrigine as prescribed the patient was instructed not to deviate from the prescription dosages. Stop lamotrigine is the first sign of rash. Patient was insisted to inform office if any of the serious side effect develops. 2. Generalized anxiety disorder - Effexor 150 mg Daily Wellbutrin XL 300 mg daily Buspar 10 mg three times a day monitor B/P on Effexor and neurologist prescribes propranolol for migraines/headach es Medication Management and Follow-Up - Plan: - Schedule follow-up appointments every 2-3 months to monitor the patient's response to the medication regimen. - Reinforce the importance of avoiding recreational drug use due to potential neurotoxicity and interactions with prescribed medications. 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 Attention deficit hyperactivity disorder, predominantly inattentive type -monitor 5. Long-term drug therapy Discussion Notes labs reviewed completed 12/0308/30/2024 Attention-defici t hyperactivity disorder, predominantly inattentive type (ICD-10 - F90.0) Learning About Attention Deficit Hyperactivity Disorder (ADHD) in Adults material was published, Attention Deficit Hyperactivity Disorder (ADHD) in Adults: Care Instructions material was published, Learning About Stimulant Medicines for Attention Deficit Hyperactivity Disorder (ADHD) material was published 1. 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, and no to change soaps, foods, ect when adding or increase dose discuss and education Lamotrigine to 100 mg dose for depression discuss TMS and will schedule therapy also- seen Brett last week- continue therapy Effexor 75 mg Daily Wellbutrin XL 300 mg daily Lexapro 20 mg daily hx therapy labs completed 12/03 discuss Spravato (he reported insurance will not cover and TMS - (he reported insurance may cover) and educated on both tx options patient will review information on both treatment options educated on all medications, benefits, side effects and risk, and educated on depression, anxiety, and ADHD, mood d/o and educated on compliance of medications, metabolic and movement d/o education appointment is, continue therapy discussion with patient about course of treatment and patient instructions. education on serotonin syndrome SSRI/SNRI side effects discussed including but not limited to, gastric upset, nausea, vomiting, diarrhea and/or constipation, weight changes, sexual side effects including loss of libido, increased suicidal thoughts/behavior s in children and young adults, and serotonin syndrome. 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 Incidence with adjunct of epilepsy treatment 0.8% in 2 to 16 years old and 0.3% in adults, bipolar and other mood disorders incidence 0.8% this initial monotherapy and 0.13% as adjunctive treatment. Other risk factor may include concomitant use of valproate acid derivative or exceeding initial lamotrigine does or does as clinician recommendation; most life-threatening rash of occurring first 2 to 8 week of treatment with isolated cases after prolonged treatment; though benign may occur, discontinue treatment at first sign of rash unless clearly not a drug related; TC treatment may not prevent trash from becoming life-threatening or permanently disabling or disfiguring. Comment reaction include, nausea/vomiting, dizziness/vertigo , visual disturbances, somnolence, ataxia, pruritus/rash, pharyngitis, headache, rhinitis, diarrhea, fever, asthenia, insomnia, tremor, abdominal pain, cough, accidental injury, constipation, dysmenorrhea, incoordination, anxiety, seizures, irritability, anorexia, xerostomia, and photosensitivity. Serious reactions include: Rash, severe; Rey Siddhartha syndrome; toxic epidermal necrosis; injury edema, hypersensitivity reactions. Including fatal, multiple organ failure to safe fatal, rash with eosinophilia systemic symptoms, DIC, neutropenia, leukopenia, thrombocytopenia, pancytopenia, aplastic anemia, hemolytic anemia, i pancreatitis, hepatic failure, rhabdomyolysis, worsening of suicidal ideation, worsening of depression, cleft lip/palate [first trimester use] DO not Change Cosmetic, perfumes or soap for next 4 weeks. The patient was advice to take lamotrigine as prescribed the patient was instructed not to deviate from the prescription dosages. Stop lamotrigine is the first sign of rash. Patient was insisted to inform office if any of the serious side effect develops. 2. Generalized anxiety disorder - Effexor 150 mg Daily Wellbutrin XL 300 mg daily Buspar 10 mg three times a day monitor B/P on Effexor and neurologist prescribes propranolol for migraines/headach es Medication Management and Follow-Up - Plan: - Schedule follow-up appointments every 2-3 months to monitor the patient's response to the medication regimen. - Reinforce the importance of avoiding recreational drug use due to potential neurotoxicity and interactions with prescribed medications. 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 Attention deficit hyperactivity disorder, predominantly inattentive type -monitor 5. Long-term drug therapy Discussion Notes labs reviewed completed 12/0308/30/2024 Major depressive disorder, recurrent, moderate (ICD-10 - F33.1) Preventing Depression From Coming Back: Care Instructions material was published, Learning About Depression Screening material was published, Learning About Depression material was published, Learning About How to Get Help During a Mental Health Crisis material was published, Seasonal Affective Disorder: Care Instructions material was published 1. 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, and no to change soaps, foods, ect when adding or increase dose discuss and education Lamotrigine to 100 mg dose for depression discuss TMS and will schedule therapy also- seen Brett last week- continue therapy Effexor 75 mg Daily Wellbutrin XL 300 mg daily Lexapro 20 mg daily hx therapy labs completed 12/03 discuss Spravato (he reported insurance will not cover and TMS - (he reported insurance may cover) and educated on both tx options patient will review information on both treatment options educated on all medications, benefits, side effects and risk, and educated on depression, anxiety, and ADHD, mood d/o and educated on compliance of medications, metabolic and movement d/o education appointment is, continue therapy discussion with patient about course of treatment and patient instructions. education on serotonin syndrome SSRI/SNRI side effects discussed including but not limited to, gastric upset, nausea, vomiting, diarrhea and/or constipation, weight changes, sexual side effects including loss of libido, increased suicidal thoughts/behavior s in children and young adults, and serotonin syndrome. 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 Incidence with adjunct of epilepsy treatment 0.8% in 2 to 16 years old and 0.3% in adults, bipolar and other mood disorders incidence 0.8% this initial monotherapy and 0.13% as adjunctive treatment. Other risk factor may include concomitant use of valproate acid derivative or exceeding initial lamotrigine does or does as clinician recommendation; most life-threatening rash of occurring first 2 to 8 week of treatment with isolated cases after prolonged treatment; though benign may occur, discontinue treatment at first sign of rash unless clearly not a drug related; TC treatment may not prevent trash from becoming life-threatening or permanently disabling or disfiguring. Comment reaction include, nausea/vomiting, dizziness/vertigo , visual disturbances, somnolence, ataxia, pruritus/rash, pharyngitis, headache, rhinitis, diarrhea, fever, asthenia, insomnia, tremor, abdominal pain, cough, accidental injury, constipation, dysmenorrhea, incoordination, anxiety, seizures, irritability, anorexia, xerostomia, and photosensitivity. Serious reactions include: Rash, severe; Rey Siddhartha syndrome; toxic epidermal necrosis; injury edema, hypersensitivity reactions. Including fatal, multiple organ failure to safe fatal, rash with eosinophilia systemic symptoms, DIC, neutropenia, leukopenia, thrombocytopenia, pancytopenia, aplastic anemia, hemolytic anemia, i pancreatitis, hepatic failure, rhabdomyolysis, worsening of suicidal ideation, worsening of depression, cleft lip/palate [first trimester use] DO not Change Cosmetic, perfumes or soap for next 4 weeks. The patient was advice to take lamotrigine as prescribed the patient was instructed not to deviate from the prescription dosages. Stop lamotrigine is the first sign of rash. Patient was insisted to inform office if any of the serious side effect develops. 2. Generalized anxiety disorder - Effexor 150 mg Daily Wellbutrin XL 300 mg daily Buspar 10 mg three times a day monitor B/P on Effexor and neurologist prescribes propranolol for migraines/headach es Medication Management and Follow-Up - Plan: - Schedule follow-up appointments every 2-3 months to monitor the patient's response to the medication regimen. - Reinforce the importance of avoiding recreational drug use due to potential neurotoxicity and interactions with prescribed medications. 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 Attention deficit hyperactivity disorder, predominantly inattentive type -monitor 5. Long-term drug therapy Discussion Notes labs reviewed completed 12/0307/30/2024 Generalized anxiety disorder (ICD-10 - F41.1) Learning About Generalized Anxiety Disorder material was published, Generalized Anxiety Disorder: Care Instructions material was published, Learning About Anxiety Disorders material was published, Learning About Transcranial Magnetic Stimulation (TMS) material was published 1. 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, and no to change soaps, foods, ect when adding or increase dose currently on Lamtrogine 50 mg daily for depression discuss and education increase Lamotrigine to 100 mg dose for depression discuss TMS and will schedule therapy also- seen Brett last week- continue therapy Effexor 75 mg Daily Wellbutrin XL 300 mg daily Lexapro 20 mg daily hx therapy labs completed 12/03 discuss Spravato (he reported insurance will not cover and TMS - (he reported insurance may cover) and educated on both tx options patient will review information on both treatment options educated on all medications, benefits, side effects and risk, and educated on depression, anxiety, and ADHD, mood d/o and educated on compliance of medications, metabolic and movement d/o education appointment is, continue therapy discussion with patient about course of treatment and patient instructions. education on serotonin syndrome SSRI/SNRI side effects discussed including but not limited to, gastric upset, nausea, vomiting, diarrhea and/or constipation, weight changes, sexual side effects including loss of libido, increased suicidal thoughts/behavior s in children and young adults, and serotonin syndrome. 2. Generalized anxiety disorder - Effexor 150 mg Daily Wellbutrin XL 300 mg daily Buspar 10 mg three times a day monitor B/P on Effexor and neurologist prescribes propranolol for migraines/headach es Medication Management and Follow-Up - Plan: - Schedule follow-up appointments every 2-3 months to monitor the patient's response to the medication regimen. - Reinforce the importance of avoiding recreational drug use due to potential neurotoxicity and interactions with prescribed medications. 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 Attention deficit hyperactivity disorder, predominantly inattentive type -monitor 5. Long-term drug therapy Discussion Notes labs reviewed completed 12/0307/27/2024 ADHD, predominantly inattentive type (ICD-10 - F90.0) 58 year old male seen today for initial assessment to start individual psychotherapy. Reported that he has seen Montserrat Pimentel for medication therapy for the three or four years. Hx of depression and anxiety reported by client. Believes he has suffered from depression for most of his life while anxiety has been presen since teen years. Depression has been worse through out his life. No prior suicide attempts but noted that he does have a hx of entertaining suicidal ideations. Last had thoughts passive thoughts in the past week, plan and intent denied. No psych admissions but has been to out patient psychotherapy. Noted that he saw a therapist here about two or three years ago for about a year. Client reported that he worries a lot about disappointing and letting people down, loosing his job, harm coming to his family and the future. Family his is denied for mental illness. Client born and grew [place] in [facility]. Noted that he is the youngest of 5; three brothers and one sister. Client described childhood as being ignored a lot. He has been for 35 years and has a son and daughter, both in their 30's. 07/02/2024 Generalized anxiety disorder (ICD-10 - F41.1) Learning About Generalized Anxiety Disorder material was published, Generalized Anxiety Disorder: Care Instructions material was published, Learning About Anxiety Disorders material was published, Learning About Transcranial Magnetic Stimulation (TMS) material was published 1. 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, and no to change soaps, foods, ect when adding or increase dose Lamtrogine 50 mg daily for depression been on this dose 8 days discuss possible increase to 100 mg dose for depression in near future discuss TMS and will schedule therapy also Effexor 75 mg Daily Wellbutrin XL 300 mg daily Lexapro 20 mg daily hx therapy labs completed 12/03 discuss Spravato (he reported insurance will not cover and TMS - (he reported insurance may cover) and educated on both tx options patient will review information on both treatment options educated on all medications, benefits, side effects and risk, and educated on depression, anxiety, and ADHD, mood d/o and educated on compliance of medications, metabolic and movement d/o education appointment is, continue therapy discussion with patient about course of treatment and patient instructions. education on serotonin syndrome SSRI/SNRI side effects discussed including but not limited to, gastric upset, nausea, vomiting, diarrhea and/or constipation, weight changes, sexual side effects including loss of libido, increased suicidal thoughts/behavior s in children and young adults, and serotonin syndrome. 2. Generalized anxiety disorder - Effexor 150 mg Daily Wellbutrin XL 300 mg daily Buspar 10 mg three times a day monitor B/P on Effexor and neurologist prescribes propranolol for migraines/headach es Medication Management and Follow-Up - Plan: - Schedule follow-up appointments every 2-3 months to monitor the patient's response to the medication regimen. - Reinforce the importance of avoiding recreational drug use due to potential neurotoxicity and interactions with prescribed medications. 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 Attention deficit hyperactivity disorder, predominantly inattentive type -monitor 5. Long-term drug therapy Discussion Notes labs reviewed completed 12/0306/04/2024 Attention-defici t hyperactivity disorder, predominantly inattentive type (ICD-10 - F90.0) Learning About Attention Deficit Hyperactivity Disorder (ADHD) in Adults material was published, Attention Deficit Hyperactivity Disorder (ADHD) in Adults: Care Instructions material was published, Learning About Stimulant Medicines for Attention Deficit Hyperactivity Disorder (ADHD) material was published 1. 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, and no to change soaps, foods, ect when adding or increase dose Add Lamtrogine 25 mg daily for 2 weeks then increase to 50 mg daily for depression Effexor 75 mg Daily Wellbutrin XL 300 mg daily Lexapro 20 mg daily hx therapy labs completed 12/03 discuss Spravato and TMS and educated on both tx options patient will review information on both treatment options educated on all medications, benefits, side effects and risk, and educated on depression, anxiety, and ADHD, mood d/o and educated on compliance of medications, metabolic and movement d/o education appointment is, continue therapy discussion with patient about course of treatment and patient instructions. education on serotonin syndrome SSRI/SNRI side effects discussed including but not limited to, gastric upset, nausea, vomiting, diarrhea and/or constipation, weight changes, sexual side effects including loss of libido, increased suicidal thoughts/behavior s in children and young adults, and serotonin syndrome. 2. Generalized anxiety disorder - Effexor 150 mg Daily Wellbutrin XL 300 mg daily Buspar 10 mg three times a day monitor B/P on Effexor and neurologist prescribes propranolol for migraines/headach es Medication Management and Follow-Up - Plan: - Schedule follow-up appointments every 2-3 months to monitor the patient's response to the medication regimen. - Reinforce the importance of avoiding recreational drug use due to potential neurotoxicity and interactions with prescribed medications. 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 Attention deficit hyperactivity disorder, predominantly inattentive type -monitor 5. Long-term drug therapy Discussion Notes labs reviewed completed 12/0307/02/2024 Attention-defici t hyperactivity disorder, predominantly inattentive type (ICD-10 - F90.0) Learning About Attention Deficit Hyperactivity Disorder (ADHD) in Adults material was published, Attention Deficit Hyperactivity Disorder (ADHD) in Adults: Care Instructions material was published, Learning About Stimulant Medicines for Attention Deficit Hyperactivity Disorder (ADHD) material was published 1. 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, and no to change soaps, foods, ect when adding or increase dose Lamtrogine 50 mg daily for depression been on this dose 8 days discuss possible increase to 100 mg dose for depression in near future discuss TMS and will schedule therapy also Effexor 75 mg Daily Wellbutrin XL 300 mg daily Lexapro 20 mg daily hx therapy labs completed 12/03 discuss Spravato (he reported insurance will not cover and TMS - (he reported insurance may cover) and educated on both tx options patient will review information on both treatment options educated on all medications, benefits, side effects and risk, and educated on depression, anxiety, and ADHD, mood d/o and educated on compliance of medications, metabolic and movement d/o education appointment is, continue therapy discussion with patient about course of treatment and patient instructions. education on serotonin syndrome SSRI/SNRI side effects discussed including but not limited to, gastric upset, nausea, vomiting, diarrhea and/or constipation, weight changes, sexual side effects including loss of libido, increased suicidal thoughts/behavior s in children and young adults, and serotonin syndrome. 2. Generalized anxiety disorder - Effexor 150 mg Daily Wellbutrin XL 300 mg daily Buspar 10 mg three times a day monitor B/P on Effexor and neurologist prescribes propranolol for migraines/headach es Medication Management and Follow-Up - Plan: - Schedule follow-up appointments every 2-3 months to monitor the patient's response to the medication regimen. - Reinforce the importance of avoiding recreational drug use due to potential neurotoxicity and interactions with prescribed medications. 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 Attention deficit hyperactivity disorder, predominantly inattentive type -monitor 5. Long-term drug therapy Discussion Notes labs reviewed completed 12/0307/30/2024 Attention-defici t hyperactivity disorder, predominantly inattentive type (ICD-10 - F90.0) Learning About Attention Deficit Hyperactivity Disorder (ADHD) in Adults material was published, Attention Deficit Hyperactivity Disorder (ADHD) in Adults: Care Instructions material was published, Learning About Stimulant Medicines for Attention Deficit Hyperactivity Disorder (ADHD) material was published 1. 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, and no to change soaps, foods, ect when adding or increase dose currently on Lamtrogine 50 mg daily for depression discuss and education increase Lamotrigine to 100 mg dose for depression discuss TMS and will schedule therapy also- seen Brett last week- continue therapy Effexor 75 mg Daily Wellbutrin XL 300 mg daily Lexapro 20 mg daily hx therapy labs completed 12/03 discuss Spravato (he reported insurance will not cover and TMS - (he reported insurance may cover) and educated on both tx options patient will review information on both treatment options educated on all medications, benefits, side effects and risk, and educated on depression, anxiety, and ADHD, mood d/o and educated on compliance of medications, metabolic and movement d/o education appointment is, continue therapy discussion with patient about course of treatment and patient instructions. education on serotonin syndrome SSRI/SNRI side effects discussed including but not limited to, gastric upset, nausea, vomiting, diarrhea and/or constipation, weight changes, sexual side effects including loss of libido, increased suicidal thoughts/behavior s in children and young adults, and serotonin syndrome. 2. Generalized anxiety disorder - Effexor 150 mg Daily Wellbutrin XL 300 mg daily Buspar 10 mg three times a day monitor B/P on Effexor and neurologist prescribes propranolol for migraines/headach es Medication Management and Follow-Up - Plan: - Schedule follow-up appointments every 2-3 months to monitor the patient's response to the medication regimen. - Reinforce the importance of avoiding recreational drug use due to potential neurotoxicity and interactions with prescribed medications. 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 Attention deficit hyperactivity disorder, predominantly inattentive type -monitor 5. Long-term drug therapy Discussion Notes labs reviewed completed 12/0308/30/2024 Insomnia due to other mental disorder (ICD-10 - F51.05) 1. 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, and no to change soaps, foods, ect when adding or increase dose discuss and education Lamotrigine to 100 mg dose for depression discuss TMS and will schedule therapy also- seen Brett last week- continue therapy Effexor 75 mg Daily Wellbutrin XL 300 mg daily Lexapro 20 mg daily hx therapy labs completed 12/03 discuss Spravato (he reported insurance will not cover and TMS - (he reported insurance may cover) and educated on both tx options patient will review information on both treatment options educated on all medications, benefits, side effects and risk, and educated on depression, anxiety, and ADHD, mood d/o and educated on compliance of medications, metabolic and movement d/o education appointment is, continue therapy discussion with patient about course of treatment and patient instructions. education on serotonin syndrome SSRI/SNRI side effects discussed including but not limited to, gastric upset, nausea, vomiting, diarrhea and/or constipation, weight changes, sexual side effects including loss of libido, increased suicidal thoughts/behavior s in children and young adults, and serotonin syndrome. 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 Incidence with adjunct of epilepsy treatment 0.8% in 2 to 16 years old and 0.3% in adults, bipolar and other mood disorders incidence 0.8% this initial monotherapy and 0.13% as adjunctive treatment. Other risk factor may include concomitant use of valproate acid derivative or exceeding initial lamotrigine does or does as clinician recommendation; most life-threatening rash of occurring first 2 to 8 week of treatment with isolated cases after prolonged treatment; though benign may occur, discontinue treatment at first sign of rash unless clearly not a drug related; TC treatment may not prevent trash from becoming life-threatening or permanently disabling or disfiguring. Comment reaction include, nausea/vomiting, dizziness/vertigo , visual disturbances, somnolence, ataxia, pruritus/rash, pharyngitis, headache, rhinitis, diarrhea, fever, asthenia, insomnia, tremor, abdominal pain, cough, accidental injury, constipation, dysmenorrhea, incoordination, anxiety, seizures, irritability, anorexia, xerostomia, and photosensitivity. Serious reactions include: Rash, severe; Rey Siddhartha syndrome; toxic epidermal necrosis; injury edema, hypersensitivity reactions. Including fatal, multiple organ failure to safe fatal, rash with eosinophilia systemic symptoms, DIC, neutropenia, leukopenia, thrombocytopenia, pancytopenia, aplastic anemia, hemolytic anemia, i pancreatitis, hepatic failure, rhabdomyolysis, worsening of suicidal ideation, worsening of depression, cleft lip/palate [first trimester use] DO not Change Cosmetic, perfumes or soap for next 4 weeks. The patient was advice to take lamotrigine as prescribed the patient was instructed not to deviate from the prescription dosages. Stop lamotrigine is the first sign of rash. Patient was insisted to inform office if any of the serious side effect develops. 2. Generalized anxiety disorder - Effexor 150 mg Daily Wellbutrin XL 300 mg daily Buspar 10 mg three times a day monitor B/P on Effexor and neurologist prescribes propranolol for migraines/headach es Medication Management and Follow-Up - Plan: - Schedule follow-up appointments every 2-3 months to monitor the patient's response to the medication regimen. - Reinforce the importance of avoiding recreational drug use due to potential neurotoxicity and interactions with prescribed medications. 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 Attention deficit hyperactivity disorder, predominantly inattentive type -monitor 5. Long-term drug therapy Discussion Notes labs reviewed completed 12/0311/29/2024 Attention-defici t hyperactivity disorder, predominantly inattentive type (ICD-10 - F90.0) Learning About Attention Deficit Hyperactivity Disorder (ADHD) in Adults material was published, Attention Deficit Hyperactivity Disorder (ADHD) in Adults: Care Instructions material was published, Learning About Stimulant Medicines for Attention Deficit Hyperactivity Disorder (ADHD) material was published 1. major depression - reported increase recently educated and discuss all rx and patient is in therapy and reported Spravato not covered on insurance INCREASE Lamotrigine 150 mg daily- continue therapy educated to montior for rash and notify office or go to ER, Educated on Evetron Siddhartha Syndrome, and no to change soaps, foods, ect when adding or increase dose discuss and education Lamotrigine to 150 mg dose for depression discuss TMS will consider pamplet given PHQ9= 11 11/29/24 schedule therapy also- seen Brett continue therapy Effexor 75 mg Daily Wellbutrin XL 300 mg daily Lexapro 20 mg daily hx therapy discuss Spravato (he reported insurance will not cover and TMS - (he reported insurance may cover) and educated on both tx options patient will review information on both treatment options educated on all medications, benefits, side effects and risk, and educated on depression, anxiety, and ADHD, mood d/o and educated on compliance of medications, metabolic and movement d/o education appointment is, continue therapy discussion with patient about course of treatment and patient instructions. education on serotonin syndrome SSRI/SNRI side effects discussed including but not limited to, gastric upset, nausea, vomiting, diarrhea and/or constipation, weight changes, sexual side effects including loss of libido, increased suicidal thoughts/behavior s in children and young adults, and serotonin syndrome. 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 Incidence with adjunct of epilepsy treatment 0.8% in 2 to 16 years old and 0.3% in adults, bipolar and other mood disorders incidence 0.8% this initial monotherapy and 0.13% as adjunctive treatment. Other risk factor may include concomitant use of valproate acid derivative or exceeding initial lamotrigine does or does as clinician recommendation; most life-threatening rash of occurring first 2 to 8 week of treatment with isolated cases after prolonged treatment; though benign may occur, discontinue treatment at first sign of rash unless clearly not a drug related; TC treatment may not prevent trash from becoming life-threatening or permanently disabling or disfiguring. Comment reaction include, nausea/vomiting, dizziness/vertigo , visual disturbances, somnolence, ataxia, pruritus/rash, pharyngitis, headache, rhinitis, diarrhea, fever, asthenia, insomnia, tremor, abdominal pain, cough, accidental injury, constipation, dysmenorrhea, incoordination, anxiety, seizures, irritability, anorexia, xerostomia, and photosensitivity. Serious reactions include: Rash, severe; Rey Siddhartha syndrome; toxic epidermal necrosis; injury edema, hypersensitivity reactions. Including fatal, multiple organ failure to safe fatal, rash with eosinophilia systemic symptoms, DIC, neutropenia, leukopenia, thrombocytopenia, pancytopenia, aplastic anemia, hemolytic anemia, i pancreatitis, hepatic failure, rhabdomyolysis, worsening of suicidal ideation, worsening of depression, cleft lip/palate [first trimester use] DO not Change Cosmetic, perfumes or soap for next 4 weeks. The patient was advice to take lamotrigine as prescribed the patient was instructed not to deviate from the prescription dosages. Stop lamotrigine is the first sign of rash. Patient was insisted to inform office if any of the serious side effect develops. 2. Generalized anxiety disorder - Effexor 150 mg Daily Wellbutrin XL 300 mg daily Buspar 10 mg three times a day monitor B/P on Effexor and neurologist prescribes propranolol for migraines/headach es Medication Management and Follow-Up - Plan: - Schedule follow-up appointments every 2-3 months to monitor the patient's response to the medication regimen. - Reinforce the importance of avoiding recreational drug use due to potential neurotoxicity and interactions with prescribed medications. 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 Attention deficit hyperactivity disorder, predominantly inattentive type -monitor 5. Long-term drug therapy Discussion Notes labs reviewed completed 12/0301/25/2025 Encounter for screening for depression (ICD-10 - Z13.31) 58 year old male seen today for initial assessment to start individual psychotherapy. Reported that he has seen Montserrat Pimentel for medication therapy for the three or four years. Hx of depression and anxiety reported by client. Believes he has suffered from depression for most of his life while anxiety has been presen since teen years. Depression has been worse through out his life. No prior suicide attempts but noted that he does have a hx of entertaining suicidal ideations. Last had thoughts passive thoughts in the past week, plan and intent denied. No psych admissions but has been to out patient psychotherapy. Noted that he saw a therapist here about two or three years ago for about a year. Client reported that he worries a lot about disappointing and letting people down, loosing his job, harm coming to his family and the future. Family his is denied for mental illness. Client born and grew up in [facility]. Noted that he is the youngest of 5; three brothers and one sister. Client described childhood as being ignored a lot. He has been for 35 years and has a son and daughter, both in their 30's. 01/08/2025 Attention-defici t hyperactivity disorder, predominantly inattentive type (ICD-10 - F90.0) Learning About Attention Deficit Hyperactivity Disorder (ADHD) in Adults material was published, Attention Deficit Hyperactivity Disorder (ADHD) in Adults: Care Instructions material was published, Learning About Stimulant Medicines for Attention Deficit Hyperactivity Disorder (ADHD) material was published 1. 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, and no to change soaps, foods, ect when adding or increase dose discuss and education Lamotrigine to 150 mg dose for depression discuss TMS will consider pamplet given PHQ9= 11 11/29/24 schedule therapy also- seen Brett continue therapy Effexor 75 mg Daily Wellbutrin XL 300 mg daily Lexapro 20 mg daily hx therapy discuss Spravato (he reported insurance will not cover and TMS - (he reported insurance may cover) and educated on both tx options patient will review information on both treatment options educated on all medications, benefits, side effects and risk, and educated on depression, anxiety, and ADHD, mood d/o and educated on compliance of medications, metabolic and movement d/o education appointment is, continue therapy discussion with patient about course of treatment and patient instructions. education on serotonin syndrome SSRI/SNRI side effects discussed including but not limited to, gastric upset, nausea, vomiting, diarrhea and/or constipation, weight changes, sexual side effects including loss of libido, increased suicidal thoughts/behavior s in children and young adults, and serotonin syndrome. 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 Incidence with adjunct of epilepsy treatment 0.8% in 2 to 16 years old and 0.3% in adults, bipolar and other mood disorders incidence 0.8% this initial monotherapy and 0.13% as adjunctive treatment. Other risk factor may include concomitant use of valproate acid derivative or exceeding initial lamotrigine does or does as clinician recommendation; most life-threatening rash of occurring first 2 to 8 week of treatment with isolated cases after prolonged treatment; though benign may occur, discontinue treatment at first sign of rash unless clearly not a drug related; TC treatment may not prevent trash from becoming life-threatening or permanently disabling or disfiguring. Comment reaction include, nausea/vomiting, dizziness/vertigo , visual disturbances, somnolence, ataxia, pruritus/rash, pharyngitis, headache, rhinitis, diarrhea, fever, asthenia, insomnia, tremor, abdominal pain, cough, accidental injury, constipation, dysmenorrhea, incoordination, anxiety, seizures, irritability, anorexia, xerostomia, and photosensitivity. Serious reactions include: Rash, severe; Rey Siddhartha syndrome; toxic epidermal necrosis; injury edema, hypersensitivity reactions. Including fatal, multiple organ failure to safe fatal, rash with eosinophilia systemic symptoms, DIC, neutropenia, leukopenia, thrombocytopenia, pancytopenia, aplastic anemia, hemolytic anemia, i pancreatitis, hepatic failure, rhabdomyolysis, worsening of suicidal ideation, worsening of depression, cleft lip/palate [first trimester use] DO not Change Cosmetic, perfumes or soap for next 4 weeks. The patient was advice to take lamotrigine as prescribed the patient was instructed not to deviate from the prescription dosages. Stop lamotrigine is the first sign of rash. Patient was insisted to inform office if any of the serious side effect develops. 2. Generalized anxiety disorder - Effexor 150 mg Daily Wellbutrin XL 300 mg daily Buspar 10 mg three times a day monitor B/P on Effexor and neurologist prescribes propranolol for migraines/headach es Medication Management and Follow-Up - Plan: - Schedule follow-up appointments every 2-3 months to monitor the patient's response to the medication regimen. - Reinforce the importance of avoiding recreational drug use due to potential neurotoxicity and interactions with prescribed medications. 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 Attention deficit hyperactivity disorder, predominantly inattentive type -monitor 5. Long-term drug therapy Discussion Notes 06/04/2024 Insomnia due to other mental disorder (ICD-10 - F51.05) 1. 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, and no to change soaps, foods, ect when adding or increase dose Add Lamtrogine 25 mg daily for 2 weeks then increase to 50 mg daily for depression Effexor 75 mg Daily Wellbutrin XL 300 mg daily Lexapro 20 mg daily hx therapy labs completed 12/03 discuss Spravato and TMS and educated on both tx options patient will review information on both treatment options educated on all medications, benefits, side effects and risk, and educated on depression, anxiety, and ADHD, mood d/o and educated on compliance of medications, metabolic and movement d/o education appointment is, continue therapy discussion with patient about course of treatment and patient instructions. education on serotonin syndrome SSRI/SNRI side effects discussed including but not limited to, gastric upset, nausea, vomiting, diarrhea and/or constipation, weight changes, sexual side effects including loss of libido, increased suicidal thoughts/behavior s in children and young adults, and serotonin syndrome. 2. Generalized anxiety disorder - Effexor 150 mg Daily Wellbutrin XL 300 mg daily Buspar 10 mg three times a day monitor B/P on Effexor and neurologist prescribes propranolol for migraines/headach es Medication Management and Follow-Up - Plan: - Schedule follow-up appointments every 2-3 months to monitor the patient's response to the medication regimen. - Reinforce the importance of avoiding recreational drug use due to potential neurotoxicity and interactions with prescribed medications. 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 Attention deficit hyperactivity disorder, predominantly inattentive type -monitor 5. Long-term drug therapy Discussion Notes labs reviewed completed 12/0311/29/2024 Insomnia due to other mental disorder (ICD-10 - F51.05) 1. 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, and no to change soaps, foods, ect when adding or increase dose discuss and education Lamotrigine to 150 mg dose for depression discuss TMS will consider pamplet given PHQ9= 11 11/29/24 schedule therapy also- seen Brett continue therapy Effexor 75 mg Daily Wellbutrin XL 300 mg daily Lexapro 20 mg daily hx therapy discuss Spravato (he reported insurance will not cover and TMS - (he reported insurance may cover) and educated on both tx options patient will review information on both treatment options educated on all medications, benefits, side effects and risk, and educated on depression, anxiety, and ADHD, mood d/o and educated on compliance of medications, metabolic and movement d/o education appointment is, continue therapy discussion with patient about course of treatment and patient instructions. education on serotonin syndrome SSRI/SNRI side effects discussed including but not limited to, gastric upset, nausea, vomiting, diarrhea and/or constipation, weight changes, sexual side effects including loss of libido, increased suicidal thoughts/behavior s in children and young adults, and serotonin syndrome. 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 Incidence with adjunct of epilepsy treatment 0.8% in 2 to 16 years old and 0.3% in adults, bipolar and other mood disorders incidence 0.8% this initial monotherapy and 0.13% as adjunctive treatment. Other risk factor may include concomitant use of valproate acid derivative or exceeding initial lamotrigine does or does as clinician recommendation; most life-threatening rash of occurring first 2 to 8 week of treatment with isolated cases after prolonged treatment; though benign may occur, discontinue treatment at first sign of rash unless clearly not a drug related; TC treatment may not prevent trash from becoming life-threatening or permanently disabling or disfiguring. Comment reaction include, nausea/vomiting, dizziness/vertigo , visual disturbances, somnolence, ataxia, pruritus/rash, pharyngitis, headache, rhinitis, diarrhea, fever, asthenia, insomnia, tremor, abdominal pain, cough, accidental injury, constipation, dysmenorrhea, incoordination, anxiety, seizures, irritability, anorexia, xerostomia, and photosensitivity. Serious reactions include: Rash, severe; Rey Siddhartha syndrome; toxic epidermal necrosis; injury edema, hypersensitivity reactions. Including fatal, multiple organ failure to safe fatal, rash with eosinophilia systemic symptoms, DIC, neutropenia, leukopenia, thrombocytopenia, pancytopenia, aplastic anemia, hemolytic anemia, i pancreatitis, hepatic failure, rhabdomyolysis, worsening of suicidal ideation, worsening of depression, cleft lip/palate [first trimester use] DO not Change Cosmetic, perfumes or soap for next 4 weeks. The patient was advice to take lamotrigine as prescribed the patient was instructed not to deviate from the prescription dosages. Stop lamotrigine is the first sign of rash. Patient was insisted to inform office if any of the serious side effect develops. 2. Generalized anxiety disorder - Effexor 150 mg Daily Wellbutrin XL 300 mg daily Buspar 10 mg three times a day monitor B/P on Effexor and neurologist prescribes propranolol for migraines/headach es Medication Management and Follow-Up - Plan: - Schedule follow-up appointments every 2-3 months to monitor the patient's response to the medication regimen. - Reinforce the importance of avoiding recreational drug use due to potential neurotoxicity and interactions with prescribed medications. 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 Attention deficit hyperactivity disorder, predominantly inattentive type -monitor 5. Long-term drug therapy Discussion Notes labs reviewed completed 12/0301/08/2025 Insomnia due to other mental disorder (ICD-10 - F51.05) 1. 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, and no to change soaps, foods, ect when adding or increase dose discuss and education Lamotrigine to 150 mg dose for depression discuss TMS will consider pamplet given PHQ9= 11 11/29/24 schedule therapy also- seen Brett continue therapy Effexor 75 mg Daily Wellbutrin XL 300 mg daily Lexapro 20 mg daily hx therapy discuss Spravato (he reported insurance will not cover and TMS - (he reported insurance may cover) and educated on both tx options patient will review information on both treatment options educated on all medications, benefits, side effects and risk, and educated on depression, anxiety, and ADHD, mood d/o and educated on compliance of medications, metabolic and movement d/o education appointment is, continue therapy discussion with patient about course of treatment and patient instructions. education on serotonin syndrome SSRI/SNRI side effects discussed including but not limited to, gastric upset, nausea, vomiting, diarrhea and/or constipation, weight changes, sexual side effects including loss of libido, increased suicidal thoughts/behavior s in children and young adults, and serotonin syndrome. 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 Incidence with adjunct of epilepsy treatment 0.8% in 2 to 16 years old and 0.3% in adults, bipolar and other mood disorders incidence 0.8% this initial monotherapy and 0.13% as adjunctive treatment. Other risk factor may include concomitant use of valproate acid derivative or exceeding initial lamotrigine does or does as clinician recommendation; most life-threatening rash of occurring first 2 to 8 week of treatment with isolated cases after prolonged treatment; though benign may occur, discontinue treatment at first sign of rash unless clearly not a drug related; TC treatment may not prevent trash from becoming life-threatening or permanently disabling or disfiguring. Comment reaction include, nausea/vomiting, dizziness/vertigo , visual disturbances, somnolence, ataxia, pruritus/rash, pharyngitis, headache, rhinitis, diarrhea, fever, asthenia, insomnia, tremor, abdominal pain, cough, accidental injury, constipation, dysmenorrhea, incoordination, anxiety, seizures, irritability, anorexia, xerostomia, and photosensitivity. Serious reactions include: Rash, severe; Rey Siddhartha syndrome; toxic epidermal necrosis; injury edema, hypersensitivity reactions. Including fatal, multiple organ failure to safe fatal, rash with eosinophilia systemic symptoms, DIC, neutropenia, leukopenia, thrombocytopenia, pancytopenia, aplastic anemia, hemolytic anemia, i pancreatitis, hepatic failure, rhabdomyolysis, worsening of suicidal ideation, worsening of depression, cleft lip/palate [first trimester use] DO not Change Cosmetic, perfumes or soap for next 4 weeks. The patient was advice to take lamotrigine as prescribed the patient was instructed not to deviate from the prescription dosages. Stop lamotrigine is the first sign of rash. Patient was insisted to inform office if any of the serious side effect develops. 2. Generalized anxiety disorder - Effexor 150 mg Daily Wellbutrin XL 300 mg daily Buspar 10 mg three times a day monitor B/P on Effexor and neurologist prescribes propranolol for migraines/headach es Medication Management and Follow-Up - Plan: - Schedule follow-up appointments every 2-3 months to monitor the patient's response to the medication regimen. - Reinforce the importance of avoiding recreational drug use due to potential neurotoxicity and interactions with prescribed medications. 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 Attention deficit hyperactivity disorder, predominantly inattentive type -monitor 5. Long-term drug therapy Discussion Notes 08/30/2024 Other group home (current) drug therapy (ICD-10 - Z79.899) Medication Refill: Care Instructions material was published 1. 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, and no to change soaps, foods, ect when adding or increase dose discuss and education Lamotrigine to 100 mg dose for depression discuss TMS and will schedule therapy also- seen Brett last week- continue therapy Effexor 75 mg Daily Wellbutrin XL 300 mg daily Lexapro 20 mg daily hx therapy labs completed 12/03 discuss Spravato (he reported insurance will not cover and TMS - (he reported insurance may cover) and educated on both tx options patient will review information on both treatment options educated on all medications, benefits, side effects and risk, and educated on depression, anxiety, and ADHD, mood d/o and educated on compliance of medications, metabolic and movement d/o education appointment is, continue therapy discussion with patient about course of treatment and patient instructions. education on serotonin syndrome SSRI/SNRI side effects discussed including but not limited to, gastric upset, nausea, vomiting, diarrhea and/or constipation, weight changes, sexual side effects including loss of libido, increased suicidal thoughts/behavior s in children and young adults, and serotonin syndrome. 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 Incidence with adjunct of epilepsy treatment 0.8% in 2 to 16 years old and 0.3% in adults, bipolar and other mood disorders incidence 0.8% this initial monotherapy and 0.13% as adjunctive treatment. Other risk factor may include concomitant use of valproate acid derivative or exceeding initial lamotrigine does or does as clinician recommendation; most life-threatening rash of occurring first 2 to 8 week of treatment with isolated cases after prolonged treatment; though benign may occur, discontinue treatment at first sign of rash unless clearly not a drug related; TC treatment may not prevent trash from becoming life-threatening or permanently disabling or disfiguring. Comment reaction include, nausea/vomiting, dizziness/vertigo , visual disturbances, somnolence, ataxia, pruritus/rash, pharyngitis, headache, rhinitis, diarrhea, fever, asthenia, insomnia, tremor, abdominal pain, cough, accidental injury, constipation, dysmenorrhea, incoordination, anxiety, seizures, irritability, anorexia, xerostomia, and photosensitivity. Serious reactions include: Rash, severe; Rey Siddhartha syndrome; toxic epidermal necrosis; injury edema, hypersensitivity reactions. Including fatal, multiple organ failure to safe fatal, rash with eosinophilia systemic symptoms, DIC, neutropenia, leukopenia, thrombocytopenia, pancytopenia, aplastic anemia, hemolytic anemia, i pancreatitis, hepatic failure, rhabdomyolysis, worsening of suicidal ideation, worsening of depression, cleft lip/palate [first trimester use] DO not Change Cosmetic, perfumes or soap for next 4 weeks. The patient was advice to take lamotrigine as prescribed the patient was instructed not to deviate from the prescription dosages. Stop lamotrigine is the first sign of rash. Patient was insisted to inform office if any of the serious side effect develops. 2. Generalized anxiety disorder - Effexor 150 mg Daily Wellbutrin XL 300 mg daily Buspar 10 mg three times a day monitor B/P on Effexor and neurologist prescribes propranolol for migraines/headach es Medication Management and Follow-Up - Plan: - Schedule follow-up appointments every 2-3 months to monitor the patient's response to the medication regimen. - Reinforce the importance of avoiding recreational drug use due to potential neurotoxicity and interactions with prescribed medications. 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 Attention deficit hyperactivity disorder, predominantly inattentive type -monitor 5. Long-term drug therapy Discussion Notes labs reviewed completed 12/0307/30/2024 Insomnia due to other mental disorder (ICD-10 - F51.05) 1. 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, and no to change soaps, foods, ect when adding or increase dose currently on Lamtrogine 50 mg daily for depression discuss and education increase Lamotrigine to 100 mg dose for depression discuss TMS and will schedule therapy also- seen Brett last week- continue therapy Effexor 75 mg Daily Wellbutrin XL 300 mg daily Lexapro 20 mg daily hx therapy labs completed 12/03 discuss Spravato (he reported insurance will not cover and TMS - (he reported insurance may cover) and educated on both tx options patient will review information on both treatment options educated on all medications, benefits, side effects and risk, and educated on depression, anxiety, and ADHD, mood d/o and educated on compliance of medications, metabolic and movement d/o education appointment is, continue therapy discussion with patient about course of treatment and patient instructions. education on serotonin syndrome SSRI/SNRI side effects discussed including but not limited to, gastric upset, nausea, vomiting, diarrhea and/or constipation, weight changes, sexual side effects including loss of libido, increased suicidal thoughts/behavior s in children and young adults, and serotonin syndrome. 2. Generalized anxiety disorder - Effexor 150 mg Daily Wellbutrin XL 300 mg daily Buspar 10 mg three times a day monitor B/P on Effexor and neurologist prescribes propranolol for migraines/headach es Medication Management and Follow-Up - Plan: - Schedule follow-up appointments every 2-3 months to monitor the patient's response to the medication regimen. - Reinforce the importance of avoiding recreational drug use due to potential neurotoxicity and interactions with prescribed medications. 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 Attention deficit hyperactivity disorder, predominantly inattentive type -monitor 5. Long-term drug therapy Discussion Notes labs reviewed completed 12/0306/04/2024 Other group home (current) drug therapy (ICD-10 - Z79.899) Medication Refill: Care Instructions material was published 1. 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, and no to change soaps, foods, ect when adding or increase dose Add Lamtrogine 25 mg daily for 2 weeks then increase to 50 mg daily for depression Effexor 75 mg Daily Wellbutrin XL 300 mg daily Lexapro 20 mg daily hx therapy labs completed 12/03 discuss Spravato and TMS and educated on both tx options patient will review information on both treatment options educated on all medications, benefits, side effects and risk, and educated on depression, anxiety, and ADHD, mood d/o and educated on compliance of medications, metabolic and movement d/o education appointment is, continue therapy discussion with patient about course of treatment and patient instructions. education on serotonin syndrome SSRI/SNRI side effects discussed including but not limited to, gastric upset, nausea, vomiting, diarrhea and/or constipation, weight changes, sexual side effects including loss of libido, increased suicidal thoughts/behavior s in children and young adults, and serotonin syndrome. 2. Generalized anxiety disorder - Effexor 150 mg Daily Wellbutrin XL 300 mg daily Buspar 10 mg three times a day monitor B/P on Effexor and neurologist prescribes propranolol for migraines/headach es Medication Management and Follow-Up - Plan: - Schedule follow-up appointments every 2-3 months to monitor the patient's response to the medication regimen. - Reinforce the importance of avoiding recreational drug use due to potential neurotoxicity and interactions with prescribed medications. 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 Attention deficit hyperactivity disorder, predominantly inattentive type -monitor 5. Long-term drug therapy Discussion Notes labs reviewed completed 12/0307/02/2024 Insomnia due to other mental disorder (ICD-10 - F51.05) 1. 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, and no to change soaps, foods, ect when adding or increase dose Lamtrogine 50 mg daily for depression been on this dose 8 days discuss possible increase to 100 mg dose for depression in near future discuss TMS and will schedule therapy also Effexor 75 mg Daily Wellbutrin XL 300 mg daily Lexapro 20 mg daily hx therapy labs completed 12/03 discuss Spravato (he reported insurance will not cover and TMS - (he reported insurance may cover) and educated on both tx options patient will review information on both treatment options educated on all medications, benefits, side effects and risk, and educated on depression, anxiety, and ADHD, mood d/o and educated on compliance of medications, metabolic and movement d/o education appointment is, continue therapy discussion with patient about course of treatment and patient instructions. education on serotonin syndrome SSRI/SNRI side effects discussed including but not limited to, gastric upset, nausea, vomiting, diarrhea and/or constipation, weight changes, sexual side effects including loss of libido, increased suicidal thoughts/behavior s in children and young adults, and serotonin syndrome. 2. Generalized anxiety disorder - Effexor 150 mg Daily Wellbutrin XL 300 mg daily Buspar 10 mg three times a day monitor B/P on Effexor and neurologist prescribes propranolol for migraines/headach es Medication Management and Follow-Up - Plan: - Schedule follow-up appointments every 2-3 months to monitor the patient's response to the medication regimen. - Reinforce the importance of avoiding recreational drug use due to potential neurotoxicity and interactions with prescribed medications. 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 Attention deficit hyperactivity disorder, predominantly inattentive type -monitor 5. Long-term drug therapy Discussion Notes labs reviewed completed 12/0307/02/2024 Other group home (current) drug therapy (ICD-10 - Z79.899) Medication Refill: Care Instructions material was published 1. 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, and no to change soaps, foods, ect when adding or increase dose Lamtrogine 50 mg daily for depression been on this dose 8 days discuss possible increase to 100 mg dose for depression in near future discuss TMS and will schedule therapy also Effexor 75 mg Daily Wellbutrin XL 300 mg daily Lexapro 20 mg daily hx therapy labs completed 12/03 discuss Spravato (he reported insurance will not cover and TMS - (he reported insurance may cover) and educated on both tx options patient will review information on both treatment options educated on all medications, benefits, side effects and risk, and educated on depression, anxiety, and ADHD, mood d/o and educated on compliance of medications, metabolic and movement d/o education appointment is, continue therapy discussion with patient about course of treatment and patient instructions. education on serotonin syndrome SSRI/SNRI side effects discussed including but not limited to, gastric upset, nausea, vomiting, diarrhea and/or constipation, weight changes, sexual side effects including loss of libido, increased suicidal thoughts/behavior s in children and young adults, and serotonin syndrome. 2. Generalized anxiety disorder - Effexor 150 mg Daily Wellbutrin XL 300 mg daily Buspar 10 mg three times a day monitor B/P on Effexor and neurologist prescribes propranolol for migraines/headach es Medication Management and Follow-Up - Plan: - Schedule follow-up appointments every 2-3 months to monitor the patient's response to the medication regimen. - Reinforce the importance of avoiding recreational drug use due to potential neurotoxicity and interactions with prescribed medications. 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 Attention deficit hyperactivity disorder, predominantly inattentive type -monitor 5. Long-term drug therapy Discussion Notes labs reviewed completed 12/0307/30/2024 Other group home (current) drug therapy (ICD-10 - Z79.899) Medication Refill: Care Instructions material was published 1. 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, and no to change soaps, foods, ect when adding or increase dose currently on Lamtrogine 50 mg daily for depression discuss and education increase Lamotrigine to 100 mg dose for depression discuss TMS and will schedule therapy also- seen Brett last week- continue therapy Effexor 75 mg Daily Wellbutrin XL 300 mg daily Lexapro 20 mg daily hx therapy labs completed 12/03 discuss Spravato (he reported insurance will not cover and TMS - (he reported insurance may cover) and educated on both tx options patient will review information on both treatment options educated on all medications, benefits, side effects and risk, and educated on depression, anxiety, and ADHD, mood d/o and educated on compliance of medications, metabolic and movement d/o education appointment is, continue therapy discussion with patient about course of treatment and patient instructions. education on serotonin syndrome SSRI/SNRI side effects discussed including but not limited to, gastric upset, nausea, vomiting, diarrhea and/or constipation, weight changes, sexual side effects including loss of libido, increased suicidal thoughts/behavior s in children and young adults, and serotonin syndrome. 2. Generalized anxiety disorder - Effexor 150 mg Daily Wellbutrin XL 300 mg daily Buspar 10 mg three times a day monitor B/P on Effexor and neurologist prescribes propranolol for migraines/headach es Medication Management and Follow-Up - Plan: - Schedule follow-up appointments every 2-3 months to monitor the patient's response to the medication regimen. - Reinforce the importance of avoiding recreational drug use due to potential neurotoxicity and interactions with prescribed medications. 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 Attention deficit hyperactivity disorder, predominantly inattentive type -monitor 5. Long-term drug therapy Discussion Notes labs reviewed completed 12/0308/30/2024 Elevated blood pressure reading (ICD-10 - R03.0) 1. 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, and no to change soaps, foods, ect when adding or increase dose discuss and education Lamotrigine to 100 mg dose for depression discuss TMS and will schedule therapy also- seen Brett last week- continue therapy Effexor 75 mg Daily Wellbutrin XL 300 mg daily Lexapro 20 mg daily hx therapy labs completed 12/03 discuss Spravato (he reported insurance will not cover and TMS - (he reported insurance may cover) and educated on both tx options patient will review information on both treatment options educated on all medications, benefits, side effects and risk, and educated on depression, anxiety, and ADHD, mood d/o and educated on compliance of medications, metabolic and movement d/o education appointment is, continue therapy discussion with patient about course of treatment and patient instructions. education on serotonin syndrome SSRI/SNRI side effects discussed including but not limited to, gastric upset, nausea, vomiting, diarrhea and/or constipation, weight changes, sexual side effects including loss of libido, increased suicidal thoughts/behavior s in children and young adults, and serotonin syndrome. 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 Incidence with adjunct of epilepsy treatment 0.8% in 2 to 16 years old and 0.3% in adults, bipolar and other mood disorders incidence 0.8% this initial monotherapy and 0.13% as adjunctive treatment. Other risk factor may include concomitant use of valproate acid derivative or exceeding initial lamotrigine does or does as clinician recommendation; most life-threatening rash of occurring first 2 to 8 week of treatment with isolated cases after prolonged treatment; though benign may occur, discontinue treatment at first sign of rash unless clearly not a drug related; TC treatment may not prevent trash from becoming life-threatening or permanently disabling or disfiguring. Comment reaction include, nausea/vomiting, dizziness/vertigo , visual disturbances, somnolence, ataxia, pruritus/rash, pharyngitis, headache, rhinitis, diarrhea, fever, asthenia, insomnia, tremor, abdominal pain, cough, accidental injury, constipation, dysmenorrhea, incoordination, anxiety, seizures, irritability, anorexia, xerostomia, and photosensitivity. Serious reactions include: Rash, severe; Rey Siddhartha syndrome; toxic epidermal necrosis; injury edema, hypersensitivity reactions. Including fatal, multiple organ failure to safe fatal, rash with eosinophilia systemic symptoms, DIC, neutropenia, leukopenia, thrombocytopenia, pancytopenia, aplastic anemia, hemolytic anemia, i pancreatitis, hepatic failure, rhabdomyolysis, worsening of suicidal ideation, worsening of depression, cleft lip/palate [first trimester use] DO not Change Cosmetic, perfumes or soap for next 4 weeks. The patient was advice to take lamotrigine as prescribed the patient was instructed not to deviate from the prescription dosages. Stop lamotrigine is the first sign of rash. Patient was insisted to inform office if any of the serious side effect develops. 2. Generalized anxiety disorder - Effexor 150 mg Daily Wellbutrin XL 300 mg daily Buspar 10 mg three times a day monitor B/P on Effexor and neurologist prescribes propranolol for migraines/headach es Medication Management and Follow-Up - Plan: - Schedule follow-up appointments every 2-3 months to monitor the patient's response to the medication regimen. - Reinforce the importance of avoiding recreational drug use due to potential neurotoxicity and interactions with prescribed medications. 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 Attention deficit hyperactivity disorder, predominantly inattentive type -monitor 5. Long-term drug therapy Discussion Notes labs reviewed completed 12/0311/29/2024 Other group home (current) drug therapy (ICD-10 - Z79.899) Medication Refill: Care Instructions material was published 1. 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, and no to change soaps, foods, ect when adding or increase dose discuss and education Lamotrigine to 150 mg dose for depression discuss TMS will consider pamplet given PHQ9= 11 11/29/24 schedule therapy also- seen Brett continue therapy Effexor 75 mg Daily Wellbutrin XL 300 mg daily Lexapro 20 mg daily hx therapy discuss Spravato (he reported insurance will not cover and TMS - (he reported insurance may cover) and educated on both tx options patient will review information on both treatment options educated on all medications, benefits, side effects and risk, and educated on depression, anxiety, and ADHD, mood d/o and educated on compliance of medications, metabolic and movement d/o education appointment is, continue therapy discussion with patient about course of treatment and patient instructions. education on serotonin syndrome SSRI/SNRI side effects discussed including but not limited to, gastric upset, nausea, vomiting, diarrhea and/or constipation, weight changes, sexual side effects including loss of libido, increased suicidal thoughts/behavior s in children and young adults, and serotonin syndrome. 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 Incidence with adjunct of epilepsy treatment 0.8% in 2 to 16 years old and 0.3% in adults, bipolar and other mood disorders incidence 0.8% this initial monotherapy and 0.13% as adjunctive treatment. Other risk factor may include concomitant use of valproate acid derivative or exceeding initial lamotrigine does or does as clinician recommendation; most life-threatening rash of occurring first 2 to 8 week of treatment with isolated cases after prolonged treatment; though benign may occur, discontinue treatment at first sign of rash unless clearly not a drug related; TC treatment may not prevent trash from becoming life-threatening or permanently disabling or disfiguring. Comment reaction include, nausea/vomiting, dizziness/vertigo , visual disturbances, somnolence, ataxia, pruritus/rash, pharyngitis, headache, rhinitis, diarrhea, fever, asthenia, insomnia, tremor, abdominal pain, cough, accidental injury, constipation, dysmenorrhea, incoordination, anxiety, seizures, irritability, anorexia, xerostomia, and photosensitivity. Serious reactions include: Rash, severe; Rey Siddhartha syndrome; toxic epidermal necrosis; injury edema, hypersensitivity reactions. Including fatal, multiple organ failure to safe fatal, rash with eosinophilia systemic symptoms, DIC, neutropenia, leukopenia, thrombocytopenia, pancytopenia, aplastic anemia, hemolytic anemia, i pancreatitis, hepatic failure, rhabdomyolysis, worsening of suicidal ideation, worsening of depression, cleft lip/palate [first trimester use] DO not Change Cosmetic, perfumes or soap for next 4 weeks. The patient was advice to take lamotrigine as prescribed the patient was instructed not to deviate from the prescription dosages. Stop lamotrigine is the first sign of rash. Patient was insisted to inform office if any of the serious side effect develops. 2. Generalized anxiety disorder - Effexor 150 mg Daily Wellbutrin XL 300 mg daily Buspar 10 mg three times a day monitor B/P on Effexor and neurologist prescribes propranolol for migraines/headach es Medication Management and Follow-Up - Plan: - Schedule follow-up appointments every 2-3 months to monitor the patient's response to the medication regimen. - Reinforce the importance of avoiding recreational drug use due to potential neurotoxicity and interactions with prescribed medications. 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 Attention deficit hyperactivity disorder, predominantly inattentive type -monitor 5. Long-term drug therapy Discussion Notes labs reviewed completed 12/0301/08/2025 Other group home (current) drug therapy (ICD-10 - Z79.899) Medication Refill: Care Instructions material was published 1. 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, and no to change soaps, foods, ect when adding or increase dose discuss and education Lamotrigine to 150 mg dose for depression discuss TMS will consider pamplet given PHQ9= 11 11/29/24 schedule therapy also- seen Brett continue therapy Effexor 75 mg Daily Wellbutrin XL 300 mg daily Lexapro 20 mg daily hx therapy discuss Spravato (he reported insurance will not cover and TMS - (he reported insurance may cover) and educated on both tx options patient will review information on both treatment options educated on all medications, benefits, side effects and risk, and educated on depression, anxiety, and ADHD, mood d/o and educated on compliance of medications, metabolic and movement d/o education appointment is, continue therapy discussion with patient about course of treatment and patient instructions. education on serotonin syndrome SSRI/SNRI side effects discussed including but not limited to, gastric upset, nausea, vomiting, diarrhea and/or constipation, weight changes, sexual side effects including loss of libido, increased suicidal thoughts/behavior s in children and young adults, and serotonin syndrome. 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 Incidence with adjunct of epilepsy treatment 0.8% in 2 to 16 years old and 0.3% in adults, bipolar and other mood disorders incidence 0.8% this initial monotherapy and 0.13% as adjunctive treatment. Other risk factor may include concomitant use of valproate acid derivative or exceeding initial lamotrigine does or does as clinician recommendation; most life-threatening rash of occurring first 2 to 8 week of treatment with isolated cases after prolonged treatment; though benign may occur, discontinue treatment at first sign of rash unless clearly not a drug related; TC treatment may not prevent trash from becoming life-threatening or permanently disabling or disfiguring. Comment reaction include, nausea/vomiting, dizziness/vertigo , visual disturbances, somnolence, ataxia, pruritus/rash, pharyngitis, headache, rhinitis, diarrhea, fever, asthenia, insomnia, tremor, abdominal pain, cough, accidental injury, constipation, dysmenorrhea, incoordination, anxiety, seizures, irritability, anorexia, xerostomia, and photosensitivity. Serious reactions include: Rash, severe; Rey Siddhartha syndrome; toxic epidermal necrosis; injury edema, hypersensitivity reactions. Including fatal, multiple organ failure to safe fatal, rash with eosinophilia systemic symptoms, DIC, neutropenia, leukopenia, thrombocytopenia, pancytopenia, aplastic anemia, hemolytic anemia, i pancreatitis, hepatic failure, rhabdomyolysis, worsening of suicidal ideation, worsening of depression, cleft lip/palate [first trimester use] DO not Change Cosmetic, perfumes or soap for next 4 weeks. The patient was advice to take lamotrigine as prescribed the patient was instructed not to deviate from the prescription dosages. Stop lamotrigine is the first sign of rash. Patient was insisted to inform office if any of the serious side effect develops. 2. Generalized anxiety disorder - Effexor 150 mg Daily Wellbutrin XL 300 mg daily Buspar 10 mg three times a day monitor B/P on Effexor and neurologist prescribes propranolol for migraines/headach es Medication Management and Follow-Up - Plan: - Schedule follow-up appointments every 2-3 months to monitor the patient's response to the medication regimen. - Reinforce the importance of avoiding recreational drug use due to potential neurotoxicity and interactions with prescribed medications. 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 Attention deficit hyperactivity disorder, predominantly inattentive type -monitor 5. Long-term drug therapy Discussion Notes 01/08/2025 Elevated blood pressure reading (ICD-10 - R03.0) 1. 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, and no to change soaps, foods, ect when adding or increase dose discuss and education Lamotrigine to 150 mg dose for depression discuss TMS will consider pamplet given PHQ9= 11 11/29/24 schedule therapy also- seen Brett continue therapy Effexor 75 mg Daily Wellbutrin XL 300 mg daily Lexapro 20 mg daily hx therapy discuss Spravato (he reported insurance will not cover and TMS - (he reported insurance may cover) and educated on both tx options patient will review information on both treatment options educated on all medications, benefits, side effects and risk, and educated on depression, anxiety, and ADHD, mood d/o and educated on compliance of medications, metabolic and movement d/o education appointment is, continue therapy discussion with patient about course of treatment and patient instructions. education on serotonin syndrome SSRI/SNRI side effects discussed including but not limited to, gastric upset, nausea, vomiting, diarrhea and/or constipation, weight changes, sexual side effects including loss of libido, increased suicidal thoughts/behavior s in children and young adults, and serotonin syndrome. 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 Incidence with adjunct of epilepsy treatment 0.8% in 2 to 16 years old and 0.3% in adults, bipolar and other mood disorders incidence 0.8% this initial monotherapy and 0.13% as adjunctive treatment. Other risk factor may include concomitant use of valproate acid derivative or exceeding initial lamotrigine does or does as clinician recommendation; most life-threatening rash of occurring first 2 to 8 week of treatment with isolated cases after prolonged treatment; though benign may occur, discontinue treatment at first sign of rash unless clearly not a drug related; TC treatment may not prevent trash from becoming life-threatening or permanently disabling or disfiguring. Comment reaction include, nausea/vomiting, dizziness/vertigo , visual disturbances, somnolence, ataxia, pruritus/rash, pharyngitis, headache, rhinitis, diarrhea, fever, asthenia, insomnia, tremor, abdominal pain, cough, accidental injury, constipation, dysmenorrhea, incoordination, anxiety, seizures, irritability, anorexia, xerostomia, and photosensitivity. Serious reactions include: Rash, severe; Rey Siddhartha syndrome; toxic epidermal necrosis; injury edema, hypersensitivity reactions. Including fatal, multiple organ failure to safe fatal, rash with eosinophilia systemic symptoms, DIC, neutropenia, leukopenia, thrombocytopenia, pancytopenia, aplastic anemia, hemolytic anemia, i pancreatitis, hepatic failure, rhabdomyolysis, worsening of suicidal ideation, worsening of depression, cleft lip/palate [first trimester use] DO not Change Cosmetic, perfumes or soap for next 4 weeks. The patient was advice to take lamotrigine as prescribed the patient was instructed not to deviate from the prescription dosages. Stop lamotrigine is the first sign of rash. Patient was insisted to inform office if any of the serious side effect develops. 2. Generalized anxiety disorder - Effexor 150 mg Daily Wellbutrin XL 300 mg daily Buspar 10 mg three times a day monitor B/P on Effexor and neurologist prescribes propranolol for migraines/headach es Medication Management and Follow-Up - Plan: - Schedule follow-up appointments every 2-3 months to monitor the patient's response to the medication regimen. - Reinforce the importance of avoiding recreational drug use due to potential neurotoxicity and interactions with prescribed medications. 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 Attention deficit hyperactivity disorder, predominantly inattentive type -monitor 5. Long-term drug therapy Discussion Notes 11/29/2024 Elevated blood pressure reading (ICD-10 - R03.0) 1. 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, and no to change soaps, foods, ect when adding or increase dose discuss and education Lamotrigine to 150 mg dose for depression discuss TMS will consider pamplet given PHQ9= 11 11/29/24 schedule therapy also- seen Brett continue therapy Effexor 75 mg Daily Wellbutrin XL 300 mg daily Lexapro 20 mg daily hx therapy discuss Spravato (he reported insurance will not cover and TMS - (he reported insurance may cover) and educated on both tx options patient will review information on both treatment options educated on all medications, benefits, side effects and risk, and educated on depression, anxiety, and ADHD, mood d/o and educated on compliance of medications, metabolic and movement d/o education appointment is, continue therapy discussion with patient about course of treatment and patient instructions. education on serotonin syndrome SSRI/SNRI side effects discussed including but not limited to, gastric upset, nausea, vomiting, diarrhea and/or constipation, weight changes, sexual side effects including loss of libido, increased suicidal thoughts/behavior s in children and young adults, and serotonin syndrome. 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 Incidence with adjunct of epilepsy treatment 0.8% in 2 to 16 years old and 0.3% in adults, bipolar and other mood disorders incidence 0.8% this initial monotherapy and 0.13% as adjunctive treatment. Other risk factor may include concomitant use of valproate acid derivative or exceeding initial lamotrigine does or does as clinician recommendation; most life-threatening rash of occurring first 2 to 8 week of treatment with isolated cases after prolonged treatment; though benign may occur, discontinue treatment at first sign of rash unless clearly not a drug related; TC treatment may not prevent trash from becoming life-threatening or permanently disabling or disfiguring. Comment reaction include, nausea/vomiting, dizziness/vertigo , visual disturbances, somnolence, ataxia, pruritus/rash, pharyngitis, headache, rhinitis, diarrhea, fever, asthenia, insomnia, tremor, abdominal pain, cough, accidental injury, constipation, dysmenorrhea, incoordination, anxiety, seizures, irritability, anorexia, xerostomia, and photosensitivity. Serious reactions include: Rash, severe; Rey Siddhartha syndrome; toxic epidermal necrosis; injury edema, hypersensitivity reactions. Including fatal, multiple organ failure to safe fatal, rash with eosinophilia systemic symptoms, DIC, neutropenia, leukopenia, thrombocytopenia, pancytopenia, aplastic anemia, hemolytic anemia, i pancreatitis, hepatic failure, rhabdomyolysis, worsening of suicidal ideation, worsening of depression, cleft lip/palate [first trimester use] DO not Change Cosmetic, perfumes or soap for next 4 weeks. The patient was advice to take lamotrigine as prescribed the patient was instructed not to deviate from the prescription dosages. Stop lamotrigine is the first sign of rash. Patient was insisted to inform office if any of the serious side effect develops. 2. Generalized anxiety disorder - Effexor 150 mg Daily Wellbutrin XL 300 mg daily Buspar 10 mg three times a day monitor B/P on Effexor and neurologist prescribes propranolol for migraines/headach es Medication Management and Follow-Up - Plan: - Schedule follow-up appointments every 2-3 months to monitor the patient's response to the medication regimen. - Reinforce the importance of avoiding recreational drug use due to potential neurotoxicity and interactions with prescribed medications. 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 Attention deficit hyperactivity disorder, predominantly inattentive type -monitor 5. Long-term drug therapy Discussion Notes labs reviewed completed 12/0301/08/2025 Encounter for screening for cardiovascular disorders (ICD-10 - Z13.6) 1. 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, and no to change soaps, foods, ect when adding or increase dose discuss and education Lamotrigine to 150 mg dose for depression discuss TMS will consider pamplet given PHQ9= 11 11/29/24 schedule therapy also- seen Brett continue therapy Effexor 75 mg Daily Wellbutrin XL 300 mg daily Lexapro 20 mg daily hx therapy discuss Spravato (he reported insurance will not cover and TMS - (he reported insurance may cover) and educated on both tx options patient will review information on both treatment options educated on all medications, benefits, side effects and risk, and educated on depression, anxiety, and ADHD, mood d/o and educated on compliance of medications, metabolic and movement d/o education appointment is, continue therapy discussion with patient about course of treatment and patient instructions. education on serotonin syndrome SSRI/SNRI side effects discussed including but not limited to, gastric upset, nausea, vomiting, diarrhea and/or constipation, weight changes, sexual side effects including loss of libido, increased suicidal thoughts/behavior s in children and young adults, and serotonin syndrome. 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 Incidence with adjunct of epilepsy treatment 0.8% in 2 to 16 years old and 0.3% in adults, bipolar and other mood disorders incidence 0.8% this initial monotherapy and 0.13% as adjunctive treatment. Other risk factor may include concomitant use of valproate acid derivative or exceeding initial lamotrigine does or does as clinician recommendation; most life-threatening rash of occurring first 2 to 8 week of treatment with isolated cases after prolonged treatment; though benign may occur, discontinue treatment at first sign of rash unless clearly not a drug related; TC treatment may not prevent trash from becoming life-threatening or permanently disabling or disfiguring. Comment reaction include, nausea/vomiting, dizziness/vertigo , visual disturbances, somnolence, ataxia, pruritus/rash, pharyngitis, headache, rhinitis, diarrhea, fever, asthenia, insomnia, tremor, abdominal pain, cough, accidental injury, constipation, dysmenorrhea, incoordination, anxiety, seizures, irritability, anorexia, xerostomia, and photosensitivity. Serious reactions include: Rash, severe; Rey Siddhartha syndrome; toxic epidermal necrosis; injury edema, hypersensitivity reactions. Including fatal, multiple organ failure to safe fatal, rash with eosinophilia systemic symptoms, DIC, neutropenia, leukopenia, thrombocytopenia, pancytopenia, aplastic anemia, hemolytic anemia, i pancreatitis, hepatic failure, rhabdomyolysis, worsening of suicidal ideation, worsening of depression, cleft lip/palate [first trimester use] DO not Change Cosmetic, perfumes or soap for next 4 weeks. The patient was advice to take lamotrigine as prescribed the patient was instructed not to deviate from the prescription dosages. Stop lamotrigine is the first sign of rash. Patient was insisted to inform office if any of the serious side effect develops. 2. Generalized anxiety disorder - Effexor 150 mg Daily Wellbutrin XL 300 mg daily Buspar 10 mg three times a day monitor B/P on Effexor and neurologist prescribes propranolol for migraines/headach es Medication Management and Follow-Up - Plan: - Schedule follow-up appointments every 2-3 months to monitor the patient's response to the medication regimen. - Reinforce the importance of avoiding recreational drug use due to potential neurotoxicity and interactions with prescribed medications. 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 Attention deficit hyperactivity disorder, predominantly inattentive type -monitor 5. Long-term drug therapy Discussion Notes 06/04/2024 Other Lamotrigine Oral Tablet (LAMOTRIGINE - ORAL) material was published, Venlafaxine Extended Release Oral Capsule (VENLAFAXINE SUSTAINED-RELEA SE - ORAL) material was published, Bupropion Extended Release Oral Tablet (BUPROPION HCL EXTENDED-RELEAS E (ANTIDEPRESSANT ) - ORAL) material was published, Escitalopram Oral Tablet (ESCITALOPRAM - ORAL) material was published, Esketamine Nasal [place] (ESKETAMINE NASAL - SPRAY) material was published 1. 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, and no to change soaps, foods, ect when adding or increase dose Add Lamtrogine 25 mg daily for 2 weeks then increase to 50 mg daily for depression Effexor 75 mg Daily Wellbutrin XL 300 mg daily Lexapro 20 mg daily hx therapy labs completed 12/03 discuss Spravato and TMS and educated on both tx options patient will review information on both treatment options educated on all medications, benefits, side effects and risk, and educated on depression, anxiety, and ADHD, mood d/o and educated on compliance of medications, metabolic and movement d/o education appointment is, continue therapy discussion with patient about course of treatment and patient instructions. education on serotonin syndrome SSRI/SNRI side effects discussed including but not limited to, gastric upset, nausea, vomiting, diarrhea and/or constipation, weight changes, sexual side effects including loss of libido, increased suicidal thoughts/behavior s in children and young adults, and serotonin syndrome. 2. Generalized anxiety disorder - Effexor 150 mg Daily Wellbutrin XL 300 mg daily Buspar 10 mg three times a day monitor B/P on Effexor and neurologist prescribes propranolol for migraines/headach es Medication Management and Follow-Up - Plan: - Schedule follow-up appointments every 2-3 months to monitor the patient's response to the medication regimen. - Reinforce the importance of avoiding recreational drug use due to potential neurotoxicity and interactions with prescribed medications. 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 Attention deficit hyperactivity disorder, predominantly inattentive type -monitor 5. Long-term drug therapy Discussion Notes labs reviewed completed 12/0308/10/2024 Other Client participated in individual psychotherapy( CBT/Supportive ) related to his hx of anxiety and depression. Based on today's session continued psychotherapy is recommended with no changes to treatment plan. Client presented to session well groomed and fully oriented with no risk of harm to self or others. Client while verbal and engaged did require some prompting through out session. Reported upon presentation that he has been okay since last seen but tired. Noted that he was on vacation last week and visted with parents and 21 month old grandson. Stated that he had a good time while there. Focus of session centered on establishing rapport with client and examining past relationships and impact that they have had on his anxiety and depression. Client spoke about being an unhappy child growing up and feeling neglected and ignored on a regular basis. Parent's divorce and how he was impacted also addressed with client. Client recepive to session feedback. Next session in 3 weeks. 58 year old male seen today for initial assessment to start individual psychotherapy. Reported that he has seen Montserrat Pimentel for medication therapy for the three or four years. Hx of depression and anxiety reported by client. Believes he has suffered from depression for most of his life while anxiety has been presen since teen years. Depression has been worse through out his life. No prior suicide attempts but noted that he does have a hx of entertaining suicidal ideations. Last had thoughts passive thoughts in the past week, plan and intent denied. No psych admissions but has been to out patient psychotherapy. Noted that he saw a therapist here about two or three years ago for about a year. Client reported that he worries a lot about disappointing and letting people down, loosing his job, harm coming to his family and the future. Family his is denied for mental illness. Client born and grew [place] in [facility]. Noted that he is the youngest of 5; three brothers and one sister. Client described childhood as being ignored a lot. He has been for 35 years and has a son and daughter, both in their 30's. 08/24/2024 Other Client participated in individual psychotherapy( CBT/Suportive) related to his hx of depression and anxiety. Based on today's session continued psychotherapy is recommended with no changes to treatment plan. Client presented to session well groomed and fully oriented with no risk of harm to self or others. Client verbal and engaged through out session but still required some prompting. Reported upon presentation that he has been okay with no changes in his life. Noted that he was off work all of last week but did not do anything fun. Added that there has been no change to anxiety and depression; no better but no worse. Session focused on parents divorce and the impact that it had on him growing up. Client stated that parentsd argued a lot while and continued to argue after ther divorce about him. Stated that he did not like father or spending time with him after the divorce. Client admitted that he blamed self for parents arguing and would do what he needed to keep the peace bewteen them. Noted that he would often think (to himself) it would be better if he did not exist. Client receptive to session feedback. Next session in two weeks. 58 year old male seen today for initial assessment to start individual psychotherapy. Reported that he has seen Montserrat Pimentel for medication therapy for the three or four years. Hx of depression and anxiety reported by client. Believes he has suffered from depression for most of his life while anxiety has been presen since teen years. Depression has been worse through out his life. No prior suicide attempts but noted that he does have a hx of entertaining suicidal ideations. Last had thoughts passive thoughts in the past week, plan and intent denied. No psych admissions but has been to out patient psychotherapy. Noted that he saw a therapist here about two or three years ago for about a year. Client reported that he worries a lot about disappointing and letting people down, loosing his job, harm coming to his family and the future. Family his is denied for mental illness. Client born and grew up in [facility]. Noted that he is the youngest of 5; three brothers and one sister. Client described childhood as being ignored a lot. He has been for 35 years and has a son and daughter, both in their 30's. 09/07/2024 Other Client participated in individual psychotherapy( CBT/Supportive ) related to his hx of depression and anxiety. Based on today's session continued psychotherapy is recommended with no changes to treatment plan. Client presented to session well groomed and fully oriented with no risk of harm to self or others. Client while verbal and engaged continues to require prompting(less ). Reported upon presentation that he has been okay, same ole same ole , since last seen on 08.24.2024. Added that he and spent Thanksgiving alone at home by themselves. Noted that has been bothering him as of late. Session accordingly addressed client's relationship with and the impact that it has had on his depression and anxiety. Client stated that has a long hx of cheating on him and has left him numerous times through out their time together. Noted that he has felt sorry for through out their marriage due to her hx of childhood trauma. Moreover would never divorce due to his daughter. Admitted that he has sacrificed a lot through out his marriage. Conceded that he sacrificed childhood for mother as well. Client provided supportive therapy. Next session on two weeks. 58 year old male seen today for initial assessment to start individual psychotherapy. Reported that he has seen Montserrat Pimentel for medication therapy for the three or four years. Hx of depression and anxiety reported by client. Believes he has suffered from depression for most of his life while anxiety has been presen since teen years. Depression has been worse through out his life. No prior suicide attempts but noted that he does have a hx of entertaining suicidal ideations. Last had thoughts passive thoughts in the past week, plan and intent denied. No psych admissions but has been to out patient psychotherapy. Noted that he saw a therapist here about two or three years ago for about a year. Client reported that he worries a lot about disappointing and letting people down, loosing his job, harm coming to his family and the future. Family his is denied for mental illness. Client born and grew up in [facility]. Noted that he is the youngest of 5; three brothers and one sister. Client described childhood as being ignored a lot. He has been for 35 years and has a son and daughter, both in their 30's. 10/29/2024 Other Client participated in individual psychotherapy( CBT/Supportive ) related to his hx of depression and anxiety. Based on today's session continued psychotherapy is recommended with no changes to treatment plan. Client presented to session well groomed and fully oriented with no risk of harm to self or others. Client more verbal and engaged then in sessions past. Reported upon presentation that he has been tired as of late. [place] down all weekend with accusing him of sleeping too much. Session's focus on client's relationship with of 35 years and his childhood (relationship with parents) and how they have supported and fueled his depression and anxiety. Client admitted that he has walked on egg shells around although not as bad as it was. Fear of her leaving him at the center of walking on egg shells aound her. Client conceded that he has continued to carry message that he received from parents (mother especially) about himself into adulthood. Message that he does not matter. Client receptive to session feedback. Next session in four weeks. 58 year old male seen today for initial assessment to start individual psychotherapy. Reported that he has seen Montserrat Pmientel for medication therapy for the three or four years. Hx of depression and anxiety reported by client. Believes he has suffered from depression for most of his life while anxiety has been presen since teen years. Depression has been worse through out his life. No prior suicide attempts but noted that he does have a hx of entertaining suicidal ideations. Last had thoughts passive thoughts in the past week, plan and intent denied. No psych admissions but has been to out patient psychotherapy. Noted that he saw a therapist here about two or three years ago for about a year. Client reported that he worries a lot about disappointing and letting people down, loosing his job, harm coming to his family and the future. Family his is denied for mental illness. Client born and grew up in [facility] [place] [facility]. Noted that he is the youngest of 5; three brothers and one sister. Client described childhood as being ignored a lot. He has been for 35 years and has a son and daughter, both in their 30's. 11/26/2024 Other Clinical Notes: Client participated in individual psychotherapy( CBT/Supportive ) related to his hx of depression and anxiety. Based on today's session continued psychotherapy is recommended with no changes to treatment plan. Client presented to session well groomed and fully oriented with no risk of harm to self or others. Client more verbal and engaged then in sessions past. Reported upon presentation that he has been all right but had been sick the past past several days. Weekend was uneventful due to not having felt good. Focus of session centered on client's hx of being unhappy and not having any fun. Session accordingly challenged associated thoughts and beliefs responsible for his unhappiness. Client admitted that he has not made self a priority in his life and has put others ahead of himself. Conceded that he has clung to childhood belief that he does not matter due to parents always arguing over him. Client receptive to session feedback. Next session in four weeks. 58 year old male seen today for initial assessment to start individual psychotherapy. Reported that he has seen Montserrat Pimentel for medication therapy for the three or four years. Hx of depression and anxiety reported by client. Believes he has suffered from depression for most of his life while anxiety has been presen since teen years. Depression has been worse through out his life. No prior suicide attempts but noted that he does have a hx of entertaining suicidal ideations. Last had thoughts passive thoughts in the past week, plan and intent denied. No psych admissions but has been to out patient psychotherapy. Noted that he saw a therapist here about two or three years ago for about a year. Client reported that he worries a lot about disappointing and letting people down, loosing his job, harm coming to his family and the future. Family his is denied for mental illness. Client born and grew up in [facility]. Noted that he is the youngest of 5; three brothers and one sister. Client described childhood as being ignored a lot. He has been for 35 years and has a son and daughter, both in their 30's. 12/24/2024 Other Clinical Notes: Clinical Notes: Client participated in individual psychotherapy( CBT/Supportive ) related to his hx of depression and anxiety. Based on today's session continued psychotherapy is recommended with no changes to treatment plan. Client presented to session well groomed and fully oriented with no risk of harm to self or others. Client more verbal and engaged then in sessions past. Reported upon presentation that he could e better. Notedd that weekend was uneventful as he did nothing all weekend. Mood has been up and down as well since last seen on 11.26.2024. Added that work has been stressful due to being understaffed and he has his evaluation this . Stated that he would like to move back to [place] to be closer to grandson but is fearful of not being able to find a job making what he makes now. Session focused on client's unhappiness and irrational and fearful thoughts that have supported and fueled his is unhappiness. Client admitted that he has a long hx of being good to himself; believes he is undeserving of being good to self, everybody has crapped me, so.... . Client receptive to session feedback. Next session in four weeks. 58 year old male seen today for initial assessment to start individual psychotherapy. Reported that he has seen Montserrat Pimentel for medication therapy for the three or four years. Hx of depression and anxiety reported by client. Believes he has suffered from depression for most of his life while anxiety has been presen since teen years. Depression has been worse through out his life. No prior suicide attempts but noted that he does have a hx of entertaining suicidal ideations. Last had thoughts passive thoughts in the past week, plan and intent denied. No psych admissions but has been to out patient psychotherapy. Noted that he saw a therapist here about two or three years ago for about a year. Client reported that he worries a lot about disappointing and letting people down, loosing his job, harm coming to his family and the future. Family his is denied for mental illness. Client born and grew up in [facility]. Noted that he is the youngest of 5; three brothers and one sister. Client described childhood as being ignored a lot. He has been for 35 years and has a son and daughter, both in their 30's. 01/25/2025 Other Client participated in individual psychotherapy( CBT/Supportive ) related to his hx of depression and anxiety. Based on today's session continued psychotherapy is recommended with no changes to treatment plan. Client presented to session well groomed and fully oriented with no risk of harm to self or others. Client more verbal and engaged then in sessions past. Reported upon presentation that he has been okay since last seen on 12.24.2024 with work related stress has been less as well. Noted that work and debt are his biggest sources of stress in his life. Often times thinks he is working for nothing as debt does not appear to be less. On a positive note stated that surgery for wrist has been scheduled for February 14. Session addressed how client has been affected by 's mental health issues through out their marriage. Client stated that he and son have been the most affected by 's issues. Noted that son at time hated his mother but believes their relationship has gotten better. Client admited that he has resented throughout their marriage and has wanted to believe that a lot her negative behaviors were due to her childhood. Client however further shared that he had mixed emotions and thoughts about . Noted that he has felt trapped for a long time. Denied that he feels obilgated to stay with . Client receptive to session feedback. Next session in four weeks. 58 year old male seen today for initial assessment to start individual psychotherapy. Reported that he has seen Montserrat Pimentel for medication therapy for the three or four years. Hx of depression and anxiety reported by client. Believes he has suffered from depression for most of his life while anxiety has been presen since teen years. Depression has been worse through out his life. No prior suicide attempts but noted that he does have a hx of entertaining suicidal ideations. Last had thoughts passive thoughts in the past week, plan and intent denied. No psych admissions but has been to out patient psychotherapy. Noted that he saw a therapist here about two or three years ago for about a year. Client reported that he worries a lot about disappointing and letting people down, loosing his job, harm coming to his family and the future. Family his is denied for mental illness. Client born and grew up in [facility]. Noted that he is the youngest of 5; three brothers and one sister. Client described childhood as being ignored a lot. He has been for 35 years and has a son and daughter, both in their 30's. Plan Of Treatment Next Appt Details Provider Name:Brett charles, 02/22/2025 10:00:00 AM, [address], [address], [place], [address], Provider Name:Montserrat Pimentel , 04/15/2025 09:45:00 AM, [address], [address], [place], [address], Insurance Providers Payer Name Payer Address Payer Phone Subscriber Number Group Number Insured Name Patient Relationship to Insured Coverage Start Date Coverage End Date [facility] Ppo [address] [place] [phone] [id number] RAMONA CUETO Self - patient is the insured Medical (General) History Medical History History ICD Code Problems: Attention deficit hyperactivit y disorder Attention deficit hyperactivity disorder , predominantly inattentive type Generalized anxiety disorder Insomnia disorder related to another men parris disorder Long-term drug therapy Mild recurrent major depression Moderate recurrent major depression , Surgical History Surgery Date(Month/Year) Any surgical history 09/09/2021
--- OUTSIDE RECORDS SUMMARY | 2025-02-09 16:30 | XMS_ITS | CONTINUITY OF CARE DOCUMENT ---
Author Name max santana Address Unknown Organization [facility] Address [address] [place] [address] Phone [phone] Care Team Providers Care Manager Clinical Name Role Phone Heber Patel MD Unavailable [phone] RASHAWN SPRAGUE MD Unavailable [phone] INSURANCE PROVIDERS Payer name Policy type / Coverage type [place] red libertarian ID [id number] insurance [employer] [id number]
== END 2025-02-09 11:27 | disposition home or self-care (01) ==
PROVIDERS: PCP Family Medicine
DX: R05.9 Cough, unspecified (principal); R09.81 Nasal congestion; Z20.822 Contact with and (suspected) exposure to COVID-19
CPT/HCPCS: 87636

== ENCOUNTER 2025-06-12 12:51 | Outpatient (CLI) | payer OTHER, SELFPAY ==
--- OUTSIDE RECORDS SUMMARY | 2025-03-29 05:00 | XMS_ITS ---
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 Name Role Phone Yossi MCCORMICK, Alberto Primary Care Provider Montserrat Salgado Unavailable [phone] Brett Cotto Unavailable [phone] REASON FOR VISIT Therapy Visit Social History Sex Assigned At : Social History Observation Description Sex Assigned At Male Encounters Encounter Location Date Provider Diagnosis [facility] [place] [address] [place] [address] 03/29/2025 Brett Cotto Plan Of Treatment Next Appt Details Provider Name:Montserrat Pimentel , 07/18/2025 11:30:00 AM, [address], [address], [place], [address], Progress Notes * RAMONA CUETO DDOB: (59 yo M)Acc No.[id number]:03/29/2025 Patient: RAMONA RODRÍGUEZ Provider: Oscar Cotto LCPC :1965 A ge:59 Y S ex:Male Date:03/29/2025 Address:[address] [facility] Pcp:Alberto Sy MD Data: * Chief Complaints: * T herapy Visit * Electronic signature of Pratibha Cotto LCPC on 06/12/2025 at 01:58 PM CDT Sign off status: Pending Signatures: No Ad Hoc Signature Added * Provider: Oscar Cotto LCPC Date: 0 03/29/2025 Generated for Geovany rodriguez/Radha/Farshad on: 0 06/12/2025 01:58 PM CDT
--- OUTSIDE RECORDS SUMMARY | 2025-06-12 13:58 | XMS_ITS | Patient Health Record ---
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 Operator Name Role Phone Alberto Sy MD Primary Care Provider Montserrat Salgado Unavailable [phone] Brett Cotto Unavailable [phone] Allergies No Known Allergies Reason For Referral No Information Medications Medication SIG (Take, Route, Frequency, Duration) Notes Start Date End Date Status lamoTRIgine 150 MG Tablet 1 tablet Orall y once a day; Duration: 90 days Active Venlafaxine HCl ER 150 MG Capsule Extended Release 24 Hour 1 capsule every motning Oral Once a day; Duration: 90 days Active Montelukast Sodium 10 MG Tablet 1 tablet Oral Once a day 02/27/2024 Active Propranolol HCl 80 MG Tablet 1 tablet Oral Twice a day 02/27/2024 Active buPROPion HCl ER (XL) 300 MG Tablet Extended Release 24 Hour 1 tablet every morning Oral Once a day; Duration: 90 days Active lamoTRIgine 100 MG Tablet 1 tablet Orall y once a day; Duration: 90 days Not-Takin g Escitalopram Oxalate 20 MG Tablet 1 tablet Oral once a day; Duration: 90 days Active Tamsulosin HCl 0.4 MG Capsule 1 capsule Oral Once a day 02/27/2024 Active Propranolol HCl 40 MG Tablet Oral 02/27/2024 Not-Taking HYDROcodone-Acetaminophen 5-325 MG Tablet Oral 02/27/2024 Not-Taking busPIRone HCl 10 MG Tablet 1 tablet Oral Twice a day; Duration: 90 days Active Social History Tobacco Use: Social History Observation Description Date Details (start date - stop date) Never Smoker NA - NA Sex Assigned At : Social History Observation Description Sex Assigned At Male Social History Miscellaneous: Social Info Question Answer Notes Advance Care Planning Are you your own decision-maker Yes Do you have Power of Clinical Trials Specialist for Health or Medi kamini? No Tobacco Use: Social Info Question Answer Notes Tobacco Control (Standard) Tobacco use: Nonsmoker Additional Details Category Social Info Options Details Migrated Social History Migrated Social History Alcohol Intake: None 08/19/2020,Tobacco Years: Never smoker 12/03/2019 Drug/Alcohol: Do you smoke marijuana? Den ies Do you drink alcohol? 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, predominantly inattentive type (F90.0) 02/27/20 Active confirmed Problem Long-term current use of drug therapy (727880611) Other bed bug exterminator (current) drug therapy (Z79.899) 02/27/20 Active confirmed Problem Mild recurrent major depression (69771554) MDD (major depressive disorder), recurrent episode, mild (F33.0) Active confirmed Problem Elevated blood-pressure reading without diagnosis of hypertension (256317532) Elevated blood pressure reading (R03.0) Active confirmed Vital Signs Heart Rate 64 /min 04/18/2025 Temperature 96.7 degrees Fahrenheit 07/02/2024 Respiratory Rate 16 /min 04/18/2025 Height-cm 180.34 cm 04/18/2025 Blood pressure diastolic 84 mm Hg 04/18/2025 Weight-kg 111.13 kg 04/18/2025 Height 71.00 in 04/18/2025 Blood pressure systolic 128 mm Hg 04/18/2025 Weight 245 lbs 04/18/2025 BMI 34.17 kg/m2 04/18/2025 Encounters Encounter Location Date Provider Diagnosis [facility] [address] [place] [address] 07/02/2024 Montserrat Pimentel Major depressive disorder, recurrent, moderate F33.1 ; Generalized anxiety disorder F41.1 ; Attention-deficit hyperactivity disorder, predominantly inattentive type F90.0 ; Insomnia due to other mental disorder F51.05 and Other bed bug exterminator (current) drug therapy Z79.899 [facility], [facility] [address] [place] [address] 07/27/2024 Brett Cotto Recurrent major depressive episodes, moderate F33.1 ; Generalized anxiety disorder F41.1 and ADHD, predominantly inattentive type F90.0 [facility] [address] [place] [address] 07/30/2024 Montserrat Pimentel Major depressive disorder, recurrent, moderate F33.1 ; Generalized anxiety disorder F41.1 ; Attention-deficit hyperactivity disorder, predominantly inattentive type F90.0 ; Insomnia due to other mental disorder F51.05 and Other bed bug exterminator (current) drug therapy Z79.899 [facility] [address] [place] [address] 08/10/2024 Brett Cotto Depression, major, recurrent, moderate F33.1 and Generalized anxiety disorder F41.1 [facility] [address] [place] [address] 08/24/2024 Brett Cotto Depression, major, recurrent, moderate F33.1 and Generalized anxiety disorder F41.1 [facility] [address] [place] [address] 08/30/2024 Montserrat Pimentel Generalized anxiety disorder F41.1 ; Major depressive disorder, recurrent, moderate F33.1 ; Attention-deficit hyperactivity disorder, predominantly inattentive type F90.0 ; Insomnia due to other mental disorder F51.05 ; Other penitentiary (current) drug therapy Z79.899 and Elevated blood pressure reading R03.0 [facility] [address] [place] [address] 09/07/2024 Brett Cotto Depression, major, recurrent, moderate F33.1 and Generalized anxiety disorder F41.1 [facility], [facility] [address] [place] [address] 10/29/2024 Brett Cotto Depression, major, recurrent, moderate F33.1 and Generalized anxiety disorder F41.[address] [address] 11/26/2024 Brett Cotto Depression, major, recurrent, moderate F33.1 and Generalized anxiety disorder F41.[address] [address] 11/29/2024 Montserrat Pimentel Generalized anxiety disorder F41.1 ; Major depressive disorder, recurrent, moderate F33.1 ; Attention-deficit hyperactivity disorder, predominantly inattentive type F90.0 ; Insomnia due to other mental disorder F51.05 ; Other penitentiary (current) drug therapy Z79.899 and Elevated blood pressure reading R03.[address] [address] 12/24/2024 Brett Cotto Encounter for screen ing for depression Z13.31 ; Depression, major, recurrent, moderate F33.1 and Generalized anxiety disorder F41.[address] [address] 01/08/2025 Montserrat Pimentel Generalized anxiety disorder F41.1 ; Major depressive disorder, recurrent, moderate F33.1 ; Attention-deficit hyperactivity disorder, predominantly inattentive type F90.0 ; Insomnia due to other mental disorder F51.05 ; Other penitentiary (current) drug therapy Z79.899 ; Elevated blood pressure reading R03.0 and Encounter for screening for cardiovascular disorders Z13.[address] [address] 01/25/2025 Brett Cotto Depression, major, recurrent, moderate F33.1 ; Generalized anxiety disorder F41.1 and Encounter for screening for depression Z13.[address] [address] 02/22/2025 Brett Cotto Encounter for screen ing for depression Z13.31 ; Depression, major, recurrent, moderate F33.1 and Generalized anxiety disorder F41.[address] [address] 04/15/2025 Montserrat Pimentel [employer] [address] [place] [address] 04/18/2025 Montserrat Pimentel Generalized anxiety disorder F41.1 ; MDD (major depressive disorder), recurrent episode, mild F33.0 ; Attention-deficit hyperactivity disorder, predominantly inattentive type F90.0 ; Insomnia due to other mental disorder F51.05 ; Other bed bug exterminator (current) drug therapy Z79.899 ; Elevated blood pressure reading R03.0 and Encounter for screening for cardiovascular disorders Z13.6 [employer] [address] [place] [address] 07/02/2024 Montserrat Pimentel [facility] [employer] [facility] [address] [place] [address] 07/11/2024 Montserrat Pimentel Assessments Encounter Date Diagnosis (ICD Code) Assessment Notes Treatment Notes Treatment Clinical Notes Section Notes 07/02/2024 Major depressive disorder, recurrent, moderate (ICD-10 - [...] illness. Client born and grew up in [facility]. Noted that he is the youngest [...] illness. Client born and grew up in [facility]. Noted that he is the youngest [...] illness. Client born and grew up in [facility]. Noted that he is the youngest [...] illness. Client born and grew up in [facility]. Noted that he is the youngest [...] illness. Client born and grew up in [facility]. Noted that he is the youngest [...] illness. Client born and grew up in [facility]. Noted that he is the youngest [...] drug therapy Discussion Notes labs reviewed completed 12/0310/29/2024 Generalized anxiety disorder (ICD-10 - F41.1) 58 [...] illness. Client born and grew up in [facility]. Noted that he is the youngest [...] illness. Client born and grew up in [facility]. Noted that he is the youngest [...] illness. Client born and grew up in [facility]. Noted that he is the youngest [...] illness. Client born and grew up in [facility]. Noted that he is the youngest [...] PHQ9= 11 11/29/24 schedule therapy also- seen Bertt continue therapy Effexor 75 mg Daily Wellbutrin [...] illness. Client born and grew up in [facility]. Noted that he is the youngest [...] illness. Client born and grew up in [facility]. 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 Long-term drug therapy Discussion Notes 09/07/2024 Generalized anxiety disorder (ICD-10 - F41.1) 58 [...] illness. Client born and grew up in [facility]. Noted that he is the youngest [...] illness. Client born and grew up in [facility]. Noted that he is the youngest of 5; three brothers and one sister. Client described childhood as being ignored a lot. He has been for 35 years and has a son and daughter, both in their 30's. 01/25/2025 Generalized anxiety disorder (ICD-10 - F41.1) [...] illness. Client born and grew up in [facility]. Noted that he is the youngest [...] illness. Client born and grew up in [facility]. Noted that he is the youngest of 5; three brothers and one sister. Client described childhood as being ignored a lot. He has been for 35 years and has a son and daughter, both in their 30's. 02/22/2025 Encounter for screening for depression (ICD-10 - [...] illness. Client born and grew up in [facility]. Noted that he is the youngest of 5; three brothers and one sister. Client described childhood as being ignored a lot. He has been for 35 years and has a son and daughter, both in their 30's. 02/22/2025 Depression, major, recurrent, moderate (ICD-10 - F33.1) [...] illness. Client born and grew up in [facility]. Noted that he is the youngest of 5; three brothers and one sister. Client described childhood as being ignored a lot. He has been for 35 years and has a son and daughter, both in their 30's. 04/18/2025 Generalized anxiety disorder (ICD-10 - F41.1) Learning [...] depression discuss TMS will consider pamplet given schedule therapy also- seen Brett continue therapy [...] -monitor 5. Long-term drug therapy Discussion Notes 04/18/2025 MDD (major depressive disorder), recurrent episode, mild (ICD-10 - F33.0) 1. depression - reported improved with rx [...] depression discuss TMS will consider pamplet given schedule therapy also- seen Brett continue therapy [...] -monitor 5. Long-term drug therapy Discussion Notes 04/18/2025 Attention-defici t hyperactivity disorder, predominantly inattentive type [...] depression discuss TMS will consider pamplet given schedule therapy also- seen Brett continue therapy [...] -monitor 5. Long-term drug therapy Discussion Notes 12/24/2024 Generalized anxiety disorder (ICD-10 - F41.1) [...] illness. Client born and grew up in [facility]. Noted that he is the youngest of 5; three brothers and one sister. Client described childhood as being ignored a lot. He has been for 35 years and has a son and daughter, both in their 30's. 02/22/2025 Generalized anxiety disorder (ICD-10 - F41.1) 58 [...] illness. Client born and grew up in [facility]. Noted that he is the youngest [...] 100 mg daily continue therapy educated to dionneior for rash [...] illness. Client born and grew up in [facility]. Noted that he is the youngest [...] therapy Discussion Notes labs reviewed completed 12/0301/08/2025 Attention-defici t hyperactivity disorder, predominantly inattentive type [...] 5. Long-term drug therapy Discussion Notes 01/25/2025 Encounter for screening for depression (ICD-10 - [...] illness. Client born and grew up in [facility]. Noted that he is the youngest of 5; three brothers and one sister. Client described childhood as being ignored a lot. He has been for 35 years and has a son and daughter, both in their 30's. 04/18/2025 Insomnia due to other mental disorder (ICD-10 [...] depression discuss TMS will consider pamplet given schedule therapy also- seen Brett continue therapy [...] -monitor 5. Long-term drug therapy Discussion Notes 04/18/2025 Other bed bug exterminator (current) drug therapy (ICD-10 - Z79.899) Medication [...] depression discuss TMS will consider pamplet given schedule therapy also- seen Brett continue therapy [...] 5. Long-term drug therapy Discussion Notes 01/08/2025 Insomnia due to other mental disorder (ICD-10 [...] 5. 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 [...] Discussion Notes labs reviewed completed 12/0307/30/2024 Other bed bug exterminator (current) drug therapy (ICD-10 - Z79.899) Medication [...] Discussion Notes labs reviewed completed 12/0307/02/2024 Other bed bug exterminator (current) drug therapy (ICD-10 - Z79.899) Medication [...] 100 mg daily continue therapy educated to dionneior for rash [...] Discussion Notes labs reviewed completed 12/0311/29/2024 Other penitentiary (current) drug therapy (ICD-10 - Z79.899) Medication [...] Discussion Notes labs reviewed completed 12/0301/08/2025 Other penitentiary (current) drug therapy (ICD-10 - Z79.899) Medication [...] -monitor 5. Long-term drug therapy Discussion Notes 04/18/2025 Elevated blood pressure reading (ICD-10 - R03.0) [...] depression discuss TMS will consider pamplet given schedule therapy also- seen Brett continue therapy [...] -monitor 5. Long-term drug therapy Discussion Notes 04/18/2025 Encounter for screening for cardiovascular disorders (ICD-10 [...] depression discuss TMS will consider pamplet given schedule therapy also- seen Brett continue therapy [...] -monitor 5. Long-term drug therapy Discussion Notes 08/10/2024 Other Client participated in individual psychotherapy( CBT/Supportive [...] illness. Client born and grew up in [facility]. Noted that he is the youngest [...] illness. Client born and grew up in [facility]. Noted that he is the youngest [...] he has been okay, same ole same ole, since last seen on 08.24.2024. Added that [...] illness. Client born and grew up in [facility]. Noted that he is the youngest [...] he has been tired as of late. [place] down all weekend with accusing him [...] illness. Client born and grew up in [facility]. Noted that he is the youngest [...] illness. Client born and grew up in [facility]. Noted that he is the youngest [...] he would like to move back to [place] to be closer to grandson but is [...] good to self, everybody has crapped me, so..... Client receptive to session feedback. Next session [...] illness. Client born and grew up in [facility]. Noted that he is the youngest [...] illness. Client born and grew up in [facility]. Noted that he is the youngest of 5; three brothers and one sister. Client described childhood as being ignored a lot. He has been for 35 years and has a son and daughter, both in their 30's. 02/22/2025 Other Client participated in individual psychotherapy( CBT/Supportive [...] has been okay since last seen on 01.25.2025. Added that he had been sick with a bad cough and subsequently his wrist surgery was rescheduled to a later date. Noted that Mother's Day was unneventful as he and family did nothing at day. Stated that he did call his mother but it was a very short phone conversation. Focus of session continued to address his marriage and relationship with parents and the effects on his depression and anxiety. Spoke about father's explosive temper and how he would throw things when angered. Client admitted that because of father's temper he does not have a healthy relationship with anger and has a long hx of suppressing anger. Conceded that he is afraid of getting angry with even when she left him(numerous times) in the past. Client further shared that he is convinced that his mother did not want to be a parent. He continues to blame self for parents arguing after their divorce. Client receptive to session feedback. Next session [...] illness. Client born and grew up in [facility]. Noted that he is the youngest of 5; three brothers and one sister. Client described childhood as being ignored a lot. He has been for 35 years and has a son and daughter, both in their 30's. 04/18/2025 Other Preventing Depression From Coming Back: Care Instructions [...] depression discuss TMS will consider pamplet given schedule therapy also- seen Brett continue therapy [...] -monitor 5. Long-term drug therapy Discussion Notes Plan Of Treatment Next Appt Details Provider Name:Montserrat Pimentel , 07/18/2025 11:30:00 AM, [facility] [address] [facility] [address], [place], [address], Insurance Providers Payer Name Payer Address Payer Phone Subscriber Number Group Number Insured Name Patient Relationship to Insured Coverage Start Date Coverage End Date [facility] [address] [place] [address] [id number] RAMONA CUETO Self - patient is the [...]
== END 2025-06-12 12:52 | disposition home or self-care (01) ==
LOC: ANHAUDIO 12:52
PROVIDERS: PCP Family Medicine; Visit Provider Otolaryngology
DX: H91.93 Unspecified hearing loss, bilateral (principal)
CPT/HCPCS: 92557; 92567

== ENCOUNTER 2025-10-07 11:28 | Emergency (ER) | payer OTHER, SELFPAY ==
--- NOTE | 2025-10-07 11:31 | ED.URI ---
HPI - URI/Sore Throat General Chief Complaint: Upper Respiratory Infection Stated Complaint: Uri Symptoms Time Seen by Provider: 10/07/25 11:46 Source: patient, RN notes reviewed and old records reviewed Mode of arrival: ambulatory Limitations: no limitations History of Present Illness HPI Narrative: 60-year-old male presents to the [facility] with 10 day history of URI symptoms. States that it started with a sore throat, no longer painful. Has had a dry cough. Has tried [id number] medications with no relief. Denies any pain currently. Related Data Home Medications ?Medication ?Instructions ?Recorded ?Confirmed ?Last Taken ?Type bupropion HCl 300 mg 24 hr tablet, 300 mg PO QAM 06/21/23 10/07/25 Unknown History extended release buspirone 10 mg tablet 10 mg PO TID 06/21/23 10/07/25 Unknown History escitalopram oxalate 20 mg tablet 20 mg PO DAILY 06/21/23 10/07/25 Unknown History lamotrigine 150 mg tablet mg 10/07/25 Unknown History venlafaxine 75 mg capsule,extended mg PO 10/07/25 Unknown History release 24 hr Allergies Allergy/AdvReac Type Severity Reaction Status Date / Time latex Allergy Mild Rash Verified 10/07/25 11:38 Review of Systems Review of Systems: All systems reviewed & are unremarkable except as noted in HPI and below Constitutional: Constitutional: Reports no additional constitutional complaints ENT: Reports as per HPI and Reports sore throat Cardiovascular: Cardiovascular: Reports no additional cardiovascular complaints, Denies chest pain and Denies dyspnea Respiratory: Respiratory: Reports as per HPI, Denies chest congestion, Reports cough and Denies dyspnea Musculoskeletal: Musculoskeletal: Reports no additional musculoskeletal complaints Integumentary/Breasts: Skin/Breast: Reports system reviewed and no additional complaints, except as docu PMFSH Past Medical History Medical History MDD (major depressive disorder), recurrent episode Elevated PSA RAMILA (generalized anxiety disorder) Nephrolithiasis Migraines Surgical History Surgical History H/O wrist surgery Family History Family History Father Hypertension Heart disease Other Diabetes mellitus Social History Social History Social History: Smoking status: Never smoker Second hand tobacco smoke exposure: No Alcohol intake: never Substance use: never Substance use type: does not use Lack of Transportation: No Lack of Food: Never True Current Housing: I Have Housing Concerned About Future Housing: No Difficulty Paying Gas/Electric Bills: No Difficulty Paying for Meds: No Currently Unemployed: No Education: Associate Degree Difficulty w/ Childcare or Family Care: No Living arrangements: with family Occupation/Education: occupation 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 There is no relevant family history pertinent to the patient complaint. Exam Const: General: cooperative, healthy appearing, comfortable, no acute distress, well developed, alert and well nourished Nutritional Appearance: well nourished Orientation/consciousness: patient oriented x3 Limitations: no limitations HENMT: Head: normal to inspection Ears: hearing grossly normal bilaterally, external ears normal, TM's normal bilaterally, EAC's normal, mastoids normal and no periauricular adenopathy Face and sinus: normal facial exam, sinuses nontender and face symmetric Mouth: Yes Normal oral and palatal mucosa present, Yes lip normal, Yes tongue normal and Yes moist mucous membranes Throat: posterior oropharynx normal, uvula midline and no uvular edema Eyes: General: appearance normal, both eyes and all related structures Alignment and Position: alignment normal Neck: Neck: normal visual inspection, full ROM, no lymphadenopathy and no meningeal signs Chest: Chest palpation & inspection: normal inspection of the chest Resp: Effort & Inspection: normal respiratory effort and able to speak in complete sentences Auscultation: clear to auscultation bilaterally, no crackles, no rales, no rhonchi and no wheezes Cardio: Rate: regular rate Skin: General skin exam: normal color and no rashes or lesions noted Neuro: General: patient oriented x3, gait normal, moves all extremities and no meningeal signs Cognition (Neuro): normal cognition Speech: normal speech Gait exam (Neuro): Normal gait present Extrem: General: normal to inspection, full ROM, capillary refill normal and normal gait Psych: Appearance: grossly normal and well kempt Mental Status: mental status grossly normal Speech and movement: Normal speech and movement present and Clear speech present Affect: normal affect Attitude: cooperative Course Course Level of Care: Express Care Visit Vital Signs Vital signs: Vital Signs Temperature 98 F 10/07/25 11:38 Pulse Rate 61 10/07/25 11:38 Respiratory Rate 16 10/07/25 11:38 Blood Pressure 144/88 H 10/07/25 11:38 Pulse Oximetry 100 10/07/25 11:38 Temperature 98 F 10/07/25 11:38 Pulse Rate 61 10/07/25 11:38 Respiratory Rate 16 10/07/25 11:38 Blood Pressure 144/88 H 10/07/25 11:38 Pulse Oximetry 100 10/07/25 11:38 reviewed [facility] Narrative Medical decision making narrative: Patient sitting in exam room. Patient is nontoxic vitals stable. Patient presents with 10 day history of URI symptoms. No acute findings noted on exam. Patient is appropriate for outpatient treatment with close follow-up Discharge instructions reviewed with patient, as well as provided in writing per nursing staff. The instructions also include specific and strict return/GO TO THE ER as well as f/u information. All questions have been answered, and the patient deny any further questions with discharge and discharge plan. Some parts of this dictation were generated by voice recognition software and may contain typographical and/or grammatical inaccuracies. Differential Diagnosis Differential Diagnosis: Differential diagnostic considerations for upper respiratory infection include upper respiratory infection, croup, otitis media, sinusitis, viral infection, bronchitis, influenza, pharyngitis, strep, uvulitis.? Lab Data [facility] Lab Attestation statement: I personally reviewed the patient's lab results. Labs: Reviewed Discharge Plan Discharge Clinical Impression: Bronchitis Patient Disposition: Home Condition: Stable Instructions: Antibiotic Form, Acute Bronchitis (ED) Additional Instructions: It is very important to treat your symptoms. Drink plenty of water, Gatorade, Pedialyte, ice pops or Jell-O. -Alternate Tylenol and Motrin per package directions for fever or pain. You can alternate every 4 hours -Antihistamine medication such as Zyrtec/Claritin during the day can help improve symptoms. -doing daily nasal irrigations can help relieve pressure your sinuses. Things like a Neti pot -Use Flonase twice a day for 5 days then daily to help reduce the inflammation and dry up your sinuses. -You can also use Mucinex. Be sure to drink plenty of water with this medication at least 8 ounces with every dose and it is important to drink 8 to 10 glasses of water per day. Water is a natural decongestant -Eat and drink things that are easy to swallow, like tea or soup, or popsicles. -Oral rinses such as: Salt water gargles and/or may use topical anesthetic (eg. Chloraseptic spray) or lozenges to relieve dryness or throat pain). -Frequent hand washing or hand supervisor screen printing is one of the best ways to prevent spread of infection. -Using a vaporizer or humidifier at night will also help thin secretions and help with coughing up phlegm. -Follow up with primary care provider in 7-10 days if condition is not improving - For new or worsening symptoms go directly to the nearest ER Patient Language: Lithuanian Prescriptions: New prednisone 50 mg tablet 50 mg PO DAILY Qty: 5 0RF doxycycline monohydrate 100 mg tablet 100 mg PO BID Qty: 14 0RF No Action lamotrigine 150 mg tablet venlafaxine 75 mg capsule,extended release 24hr PO escitalopram oxalate 20 mg tablet 20 mg PO DAILY bupropion HCl 300 mg tablet extended release 24 hr 300 mg PO QAM buspirone 10 mg tablet 10 mg PO TID venlafaxine 150 mg capsule,extended release 24hr See Rx Instructions .ROUTE .COMPLEX Qty: 90 1RF Dose Instruction: TAKE 1 CAPSULE BY MOUTH EVERY MORNING Rx Instructions: TAKE 1 CAPSULE BY MOUTH EVERY MORNING propranolol 80 mg tablet See Rx Instructions .ROUTE .COMPLEX Qty: 180 2RF Dose Instruction: TAKE 1 TABLET BY MOUTH EVERY 12 HOURS Rx Instructions: TAKE 1 TABLET BY MOUTH EVERY 12 HOURS tamsulosin 0.4 mg capsule 0.4 mg PO QHS Qty: 90 2RF Follow-up/Referrals: Alberto Sy MD [Primary Care Provider, Family Practice] - 2 Weeks Clinical Impression: Bronchitis Stand Alone Forms: Work/School Release IP Time of Disposition: 12:09
[2025-10-07 11:38] VITALS: BP 144/88; PULSE 61; RESP 16; TEMP 36.6; O2SAT 100
== END 2025-10-07 12:12 | disposition home or self-care (01) ==
PROVIDERS: Emergency Provider Nurse Practitioner; PCP Family Medicine
DX: J40 Bronchitis, not specified as acute or chronic (principal); F33.9 Major depressive disorder, recurrent, unspecified; R97.20 Elevated prostate specific antigen [PSA]; N20.0 Calculus of kidney; G43.909 Migraine, unspecified, not intractable, without status migrainosus
CPT/HCPCS: 99213; G0463